=== PATIENT | male | born 1955 | race Caucasian/White ===

== ENCOUNTER → 2016-07-07 | Outpatient (CLI) | payer OTHER ==
[~2016-07-07] MED LIST: ACET-1311 PO; ASPI81TA28 PO; ATOR-22 PO; LEVO50TA6 PO; LITH1TAB PO; LITH300T2 PO; MELATAB2 PO; MELO15TA4 PO; METH4PAK PO; MULT-845 PO; OLAN-111 PO; OLAN10TA11 PO
[2016-07-07 12:58] LABS: POTASSIUM 4.2 mmol/L (3.5-5.1)
[2016-07-07 13:12] LABS: CHOLESTEROL/HDL RATIO 3.8; THYROID STIMULATING HORMONE 2.3 uIu/ml (0.300-4.500)
== END | disposition home or self-care (01) ==
LOC: C.LABBFT 08:14
PROVIDERS: ATTEND Psychiatry & Neurology Psychiatry
DX: F31.9 Bipolar disorder, unspecified (principal); E78.5 Hyperlipidemia, unspecified; E03.9 Hypothyroidism, unspecified

== ENCOUNTER → 2016-08-06 | Day surgery (SDC) | payer OTHER ==
[2016-07-28 09:22] VITALS: BMI 26.0
[~2016-08-06] VITALS: Ht 182.9 cm; Wt 88.6 kg
[~2016-08-06] MED LIST changes: +LIDOCAINE HCL 2% 2 ML VIAL (20MG/ML) ONE; +MIDAZOLAM HCL 1 MG/ML 2ML VIAL ONE; +ONDANSETRON INJ 2 MG/ML 2 ML VIAL ONE; +PROPOFOL IV EMULSION 10 MG/ML 20 ML VIAL IV ONE; +SODIUM CHLORIDE 0.9% 500ML 500 ML IV ONE
[2016-08-06 11:36] VITALS: Ht 182.9 cm; Wt 88.6 kg
--- NOTE | 2016-08-06 12:27 | Endo History and Physical ---
History & Physical Date of Service: Aug 06, 2016. Chief Complaint: SCREENING Referring Physician: DR. RAMIREZ History of Present Illness 61 yo CM who presents for screening colonoscopy. Past Surgical History Hx Cardiac Surgery: No Hx Internal Defibrillator: No Hx Pacemaker: No Hx Abdominal Surgery: No Hx of Implantable Prosthesis: No Hx Post-Op Nausea and Vomiting: No Hx Cancer Surgery: No Hx Thoracic Surgery: No Hx Orthopedic: Yes (LUMP REMOVAL FROM LT HAND, RT CTR, CLOSED REDUCTION OF RT SHOULDER) Hx Urinary Tract Surgery: Yes (LITHOTRIPSY) Family History None Social History Smoking Status: Current Every Day Smoker Hx Substance Use: Yes (QUIT 20 YEARS AGO) Allergies Coded Allergies: Sulfa Antibiotics (Verified Allergy, Severe, ANAPHYLAXIS, 08/06/16) Horse-derived Products (Verified Allergy, Unknown, UNKNOWN - HAPPENED A CHILD, 08/06/16) HAPPENED FROM HORSE TETANUS Nickel (Verified Allergy, Unknown, SKIN RASH, 08/06/16) Penicillins (Verified Allergy, Unknown, UNKNOWN - HAPPENED CHILD, ) Current Medications Reported Home Medications Medications Dose Route/Sig Max Daily Dose Days Date Category Melatonin Maximum Strengt (Melatonin) 5 Mg Tab 1 Tab PO HS 07/28/16 Reported Mobic (Meloxicam) 15 Mg Tab 15 Mg PO DAILY PRN 07/28/16 Reported Levothyroxine Sodium 50 Mcg Tab 1 Tab PO HS 07/28/16 Reported Lipitor (Atorvastatin Calcium) 20 Mg Tab 20 Mg PO HS 07/28/16 Reported Zyprexa (Olanzapine) 10 Mg Tab 10 Mg PO QAM 07/28/16 Reported [place] Carbonate 300 Mg Tab 300 Mg PO BID 07/28/16 Reported Tylenol (Acetaminophen) 325 Mg Tab 650 Mg PO Q6H PRN 08/06/15 Reported Centrum Silver Adult 50+ (Multiple Vitamins W/ Minerals) 1 Tab Tab 1 Tab PO QAM 08/06/15 Reported Vital Signs Weight (Kilograms): 88.64 Height (Feet): 6 Height (Inches): 0 Date Time Temp Pulse Resp B/P Pulse Ox O2 Delivery O2 Flow Rate FiO2 08/06/16 11:44 36.7 74 20 135/82 95 Room Air Physical Exam General Appearance: WD/WN, no apparent distress Respiratory/Chest: Auscultation: breath sounds normal Cardiovascular: Heart Auscultation: RRR Abdomen: Bowel Sounds: normal Inspection & Palpation: soft, non-distended, no tenderness, guarding & rebound Assessment and Plan Assessment: 61 yo CM who presents for screening colonoscopy. Plan: Proceed with colonoscopy.
--- NOTE | 2016-08-06 13:15 | Discharge Instructions ---
Endoscopy Patient Instructions Date / Procedure(s) Performed Aug 06, 2016. Colonoscopy Allergy Information Coded Allergies: Sulfa Antibiotics (Verified Allergy, Severe, ANAPHYLAXIS, 08/06/16) Horse-derived Products (Verified Allergy, Unknown, UNKNOWN - HAPPENED A CHILD, 08/06/16) HAPPENED FROM HORSE TETANUS Nickel (Verified Allergy, Unknown, SKIN RASH, 08/06/16) Penicillins (Verified Allergy, Unknown, UNKNOWN - HAPPENED CHILD, ) Discharge Date / Findings Aug 06, 2016. Colon polyps Diverticulosis Internal hemorrhoids Medication Instructions Stopped Medication(s): INSTRUCTED TO STOP ALL BUT LITHIUM CARBONATE PRIOR TO PROCEDURE BUT DECIDED ON OWN NOT TO TAKE ANY MEDICATIONS TODAY. OK to resume all medications today as prescribed. Reported Home Medications Medications Dose Route/Sig Max Daily Dose Days Date Category Melatonin Maximum Strengt (Melatonin) 5 Mg Tab 1 Tab PO HS 07/28/16 Reported Mobic (Meloxicam) 15 Mg Tab 15 Mg PO DAILY PRN 07/28/16 Reported Levothyroxine Sodium 50 Mcg Tab 1 Tab PO HS 07/28/16 Reported Lipitor (Atorvastatin Calcium) 20 Mg Tab 20 Mg PO HS 07/28/16 Reported Zyprexa (Olanzapine) 10 Mg Tab 10 Mg PO QAM 07/28/16 Reported [place] Carbonate 300 Mg Tab 300 Mg PO BID 07/28/16 Reported Tylenol (Acetaminophen) 325 Mg Tab 650 Mg PO Q6H PRN 08/06/15 Reported Centrum Silver Adult 50+ (Multiple Vitamins W/ Minerals) 1 Tab Tab 1 Tab PO QAM 08/06/15 Reported Provider Instructions Activity Restrictions - No exercising or heavy lifting for 24 hours. - Do not drink alcohol the day of the procedure. - Do not drive a car or operate machinery until the day after the procedure. - Do not make any important decisions or sign important papers in 24 hours after the procedure. Following Day: - Return to full activity which may include returning to work/school. Diet Start your diet with liquids and light foods (jello, soup, juice, toast). Then eat your usual diet if not nauseated. Treatment For Common After Affects For mild abdominal pain, bloating, or excessive gas: - Rest - Eat lightly - Lie on right side Follow-Up Information Follow-up with DR. RAMIREZ as scheduled Anesthesia Information What You Should Know You have had a procedure that required some medicine to reduce anxiety and discomfort. This treatment is called moderate sedation. After receiving the treatment, you may be sleepy, but you will be able to breathe on your own. The effects of the treatment may last for several hours. Follow these instructions along with Activity/Diet recommendations noted above: * Do NOT do anything where dizziness or clumsiness would be dangerous. * Rest quietly at home today, then you can be up and about tomorrow. * Have a responsible person stay with you the rest of today. * You may have had an I.V. today. If so, you may take the dressing off later today. Recommendations Call your doctor if: * Trouble breathing * Continuous vomiting for more than 24 hours * Temperature above 101 degrees * Severe abdominal pain or bloating * Pain not relieved by pain medicine ordered * There is increased drainage or redness from any incision * A large amount of rectal bleeding greater than 2-3 tablespoons. (If you had a polyp/s removed or have hemorrhoids, a small amount of blood - from the rectum is to be expected.) * You have any unanswered questions or concerns. IN THE EVENT OF A SERIOUS EMERGENCY, GO TO THE NEAREST EMERGENCY ROOM Your discharge instructions were prepared by provider Zbigniew Kingston. Patient Instructions Signature Page Amparo Lisa Patient (or Guardian) Signature/Date: I have read and understand the instructions given to me by my caregivers. Caregiver/RN/Doctor Signature/Date: The above-named patient and/or guardian has received patient instructions on this date. + Original Patient Signature Page (only) stays with chart. Please make copy for patient.
--- NOTE | 2016-08-06 13:30 | GI REPORT ---
Procedure Date: 08/06/2016 12:51 PM Procedure: Colonoscopy Indications: Screening for colorectal malignant neoplasm Medicines: Monitored Anesthesia Care Complications: No immediate complications. Estimated Blood Loss: Estimated blood loss: none. Procedure: Pre-Anesthesia Assessment: - Prior to the procedure, a History and Physical was performed, and patient medications and allergies were reviewed. The patient's tolerance of previous anesthesia was also reviewed. The risks and benefits of the procedure and the sedation options and risks were discussed with the patient. All questions were answered, and informed consent was obtained. Prior Anticoagulants: The patient has taken aspirin, last dose was 3 days prior to procedure. ASA Grade Assessment: III - A patient with severe systemic disease. After reviewing the risks and benefits, the patient was deemed in satisfactory condition to undergo the procedure. After I obtained informed consent, the scope was passed under direct vision. Throughout the procedure, the patient's blood pressure, pulse, and oxygen saturations were monitored continuously. The Scope was introduced through the anus and advanced to the terminal ileum. The colonoscopy was performed without difficulty. The patient tolerated the procedure well. The quality of the bowel preparation was good. The terminal ileum, ileocecal valve, appendiceal orifice, and rectum were photographed. Findings: A 6 mm polyp was found in the cecum. The polyp was sessile. The polyp was removed with a hot snare. Resection and retrieval were complete. To prevent bleeding after the polypectomy, one hemostatic clip was successfully placed. There was no bleeding at the end of the procedure. Two sessile polyps were found in the descending colon and in the cecum. The polyps were 5 to 6 mm in size. These polyps were removed with a hot snare. Resection was complete, but the polyp tissue was only partially retrieved. Multiple small-mouthed diverticula were found in the sigmoid colon. Non-bleeding internal hemorrhoids were found during retroflexion. The hemorrhoids were small. Impression: - One 6 mm polyp in the cecum, removed with a hot snare. Resected and retrieved. Clip was placed. - Two 5 to 6 mm polyps in the descending colon and in the cecum, removed with a hot snare. Complete resection. Partial retrieval. - Diverticulosis in the sigmoid colon. - Non-bleeding internal hemorrhoids. Recommendation: - Resume previous diet. - Continue present medications. - Repeat colonoscopy for surveillance based on pathology results. - Return to primary care physician as previously scheduled. Zbigniew Kingston, DO 08/06/2016 1:29:19 PM This report has been signed electronically. Note Initiated On: 08/06/2016 12:51 PM I attest to the content of the Intraoperative Record and orders documented therein, exceptions below
[2016-08-06 13:48] VITALS: BP 130/80; PULSE 63; O2SAT 97
--- NOTE | 2016-08-06 13:56 | Anesthesiology Progress Note ---
Anesthesia Post Op Note Date & Time Aug 06, 2016 at 13:57 Vital Signs Pain Intensity: 0 Vital Signs Past 12 Hours Date Time Temp Pulse Resp B/P Pulse Ox O2 Delivery O2 Flow Rate FiO2 08/06/16 13:48 63 18 130/80 97 Room Air 08/06/16 13:33 71 16 140/83 97 Room Air 08/06/16 13:18 72 16 107/67 100 Room Air 08/06/16 11:44 36.7 74 20 135/82 95 Room Air Notes Mental Status: alert / awake / arousable, participated in evaluation Pt Amnestic to Procedure: Yes Nausea / Vomiting: adequately controlled Pain: adequately controlled Airway Patency, RR, SpO2: stable & adequate BP & HR: stable & adequate Hydration State: stable & adequate Anesthetic Complications: no major complications apparent
== END | disposition home or self-care (01) ==
LOC: C.GI 11:24
PROVIDERS: ATTEND Internal Medicine
DX: Z12.11 Encounter for screening for malignant neoplasm of colon (principal); D12.0 Benign neoplasm of cecum; K57.30 Diverticulosis of large intestine without perforation or abscess without bleeding; K64.8 Other hemorrhoids; Z98.890 Other specified postprocedural states; F17.210 Nicotine dependence, cigarettes, uncomplicated; Z88.0 Allergy status to penicillin; Z88.2 Allergy status to sulfonamides; Z88.8 Allergy status to other drugs, medicaments and biological substances

== ENCOUNTER 2017-02-06 10:20 | Emergency (ER) | payer OTHER ==
[~2017-02-06] VITALS: Ht 182.9 cm; Wt 86.5 kg
[~2017-02-06 10:20] MED LIST changes: -ASPI81TA28 PO; -LIDOCAINE HCL 2% 2 ML VIAL (20MG/ML) ONE; -LITH1TAB PO; -METH4PAK PO; -MIDAZOLAM HCL 1 MG/ML 2ML VIAL ONE; -OLAN-111 PO; -ONDANSETRON INJ 2 MG/ML 2 ML VIAL ONE; -PROPOFOL IV EMULSION 10 MG/ML 20 ML VIAL IV ONE; -SODIUM CHLORIDE 0.9% 500ML 500 ML IV ONE
[2017-02-06 10:38] VITALS: BP 136/77; PULSE 70; TEMP 36.8; O2SAT 96; Ht 182.9 cm; Wt 86.5 kg
[2017-02-06] MEDS ORDERED: LITH1TAB PO (10:51)
[2017-02-06] MEDS ORDERED: ASPI81TA28 PO (10:51)
[2017-02-06] MEDS ORDERED: OLAN-111 PO (10:51)
[2017-02-06] MEDS ORDERED: METH4PAK PO (11:13)
--- NOTE | 2017-02-06 11:13 | EMERGENCY ROOM VISIT NOTE ---
ED Visit Note First contact with patient: 10:45 CHIEF COMPLAINT: Bilateral forearm skin rash 2 days HISTORY OF PRESENT ILLNESS: Patient is a 61-year-old white male who presents emergency department for evaluation of a rash on his bilateral forearms. His symptoms started 2 days ago. He states that 2 days prior to that he had been outside cutting some brush and doing some yard work, but does not believe that he came into contact with any type of poison divya plants. He states that the following day, he was swimming at a pool, floating on a clear plastic raft. He states that the rash started the following day. It was initially small, red, raised, slightly sore areas on the forearm. He was seen that day at an urgent care center and given a triamcinolone 0.1% cream which she has been applying without relief. The rash has now spread, become larger and involves more of the forearm. He states that it is a burning irritation, as opposed to pain and it is slightly itchy. He has had reactions similar to this previously when using plastic inner tubes and rafts. He does not feel that it is related to the yard work because it took 2 days to come out. The forearms are the only area involved. REVIEW OF SYSTEMS: Review of systems as per HPI. All other systems reviewed were negative. At least 6 systems reviewed. PMH: Electronic medical records are reviewed and summarized as above/below. See Problem List. SOCIAL HISTORY: Patient lives at home. Retired. Smokes one pack of cigarettes daily. PHYSICAL EXAM: Vital Signs: See nurses' notes. CONSTITUTIONAL: Patient is a pleasant, well-appearing 61-year-old white male who is awake and alert and in no acute distress. SKIN: The patient has an erythematous, raised, slightly warm mostly vesicular appearing rash on the volar aspect of the forearms, located primarily in the antecubital space, spreading down the forearm and up the biceps slightly. There are a few smaller satellite lesions on the periphery. The palms are spared. There are no excoriations noted, no petechiae or overtly cellulitic changes. No lymphangitic streaking. ED course: The patient was seen and assessed as above. His old records were reviewed. His presentation appears consistent with a contact dermatitis, unclear whether this could be related to a rhus dermatitis from the yard work, or from something from the pool or the inner tube. He will be placed on a prednisone taper. He was encouraged to use Benadryl and ranitidine as needed for itching. I do not suspect a superimposed cellulitis, there is no evidence for SJS, TEN, or drug reaction. Medication reconciliation: I attest that I have personally reviewed the patient' s current medication list. Blood pressure screening : Patient was found to have normal blood pressure on screening and does not require follow-up. Problem List Medical Problems: (1) Alcohol intoxication Status: Resolved (2) Bipolar Disorder, Unspecified Status: Chronic (3) Hyperlipidemia, Unspecified Status: Chronic (4) Hypothyroidism, Unspecified Status: Chronic (5) Patient denies significant medical history Status: Resolved (6) Suicide gesture Status: Resolved Surgical Problems: (1) History of carpal tunnel release Status: Resolved Current/Historical Medications Scheduled Aspirin (Aspirin Ec), 81 MG PO DAILY Atorvastatin (Lipitor), 20 MG PO HS Levothyroxine Sodium (Levothyroxine Sodium), 1 TAB PO HS [place] Carbonate Ext Rel (Lithobid Ext Rel), 225 MG PO BID Melatonin (Melatonin Maximum Strengt), 1 TAB PO HS Methylprednisolone (Medrol Dosepak), 0 PO DAILY Multiple Vitamins W/ Minerals (Centrum Silver Adult 50+), 1 TAB PO QAM Olanzapine (Zyprexa), 5 MG PO QAM Scheduled PRN Acetaminophen (Tylenol), 650 MG PO Q6H PRN for Pain Meloxicam (Mobic), 15 MG PO DAILY PRN for Pain Allergies Coded Allergies: Sulfa Antibiotics (Verified Allergy, Severe, ANAPHYLAXIS, 02/06/17) Horse-derived Products (Verified Allergy, Unknown, UNKNOWN - HAPPENED A CHILD, 02/06/17) HAPPENED FROM HORSE TETANUS Nickel (Verified Allergy, Unknown, SKIN RASH, 02/06/17) Penicillins (Verified Allergy, Unknown, UNKNOWN - HAPPENED CHILD, ) Vital Signs Date Time Temp Pulse Resp B/P (MAP) Pulse Ox O2 Delivery O2 Flow Rate FiO2 02/06/17 10:38 36.8 70 18 136/77 96 Room Air Medications Administered Medications (Trade) Dose Ordered Sig/Deborah Route Start Time Stop Time Status Last Admin Dose Admin Dexamethasone Sodium Phosphate (Decadron Inj) 10 mg NOW ONCE IM 02/06/17 11:15 02/06/17 11:16 DC 02/06/17 11:17 10 MG Departure Information Impression Primary Impression: Contact dermatitis Prescriptions Methylprednisolone (MEDROL DOSEPAK) 4 Mg Jorge 0 PO DAILY, #1 PKT Prov: Charity Be PA 02/06/17 Referrals Adalberto Tierney M.D. (PCP) Patient Instructions My [facility] Additional Instructions Medrol Dosepak: Once daily until the prescription is finished. It is best to take this earlier in the day as some patients note occasional difficulty falling asleep when taken in the late evening. Diphenhydramine(Benadryl) 25mg: use 25 to 50 mg as needed every six hours for swelling, itching, or hives. This medication is sedating and will cause drowsiness. Avoid alcohol, operating machinery or dangerous equipment, working on ladders or roofs, DRIVING, or situations where being under the influence may be dangerous. Zantac 75: Take two pills twice a day along with Benadryl as needed for swelling , itching, or hives. Most people know this for its affect on the stomach, but it also acts similar to, but less potent than Benadryl for allergic reactions. Both the Benadryl and the Zantac are available [id number]. Read all the package inserts or medication information paperwork provided. If you have any questions or concerns call your primary provider, pharmacist or the ER for assistance. Continue current medications. Return to the emergency department for worsening of your rash, swelling of your face, lips, tongue, or throat, difficulty breathing, vomiting, or as needed. Follow-up with your primary care physician in 2-3 days for a recheck of your current condition.
[2017-02-06] MEDS ORDERED: DEXAMETHASONE SOD INJ 10 MG/ML VIAL IM ONE (11:15)
== END 2017-02-06 11:20 | disposition home or self-care (01) ==
LOC: C.EDB 10:21 → C.EDD 11:20
DX: L25.9 Unspecified contact dermatitis, unspecified cause (principal); E03.9 Hypothyroidism, unspecified; F31.9 Bipolar disorder, unspecified; E78.5 Hyperlipidemia, unspecified; F17.210 Nicotine dependence, cigarettes, uncomplicated; Z98.890 Other specified postprocedural states; Z79.82 Long term (current) use of aspirin; Z79.899 Other long term (current) drug therapy

== ENCOUNTER → 2017-02-26 | Outpatient (CLI) | payer OTHER ==
[~2017-02-26] MED LIST changes: +ASPI81TA28 PO; +LITH1TAB PO; -LITH300T2 PO; +OLAN-111 PO; -OLAN10TA11 PO
--- NOTE | 2017-02-26 11:48 | DIAGNOSTIC IMAGING REPORT ---
CT LUNG SCREENING, LOW DOSE WITH COMPUTER-AIDED DETECTION (CAD) CLINICAL HISTORY: Smoker COMPARISON STUDY: 02/11/2016 CT DOSE: 82.82 mGycm TECHNIQUE: Low-dose helical CT was acquired without intravenous contrast from lung apices to bases and reconstructed at 2.5 mm every 2 mm. CAD was utilized for this study. A dose lowering technique was utilized adhering to the principles of ALARA. FINDINGS: Thyroid: Imaged portions of the thyroid gland are normal in appearance. Thoracic aorta: The thoracic aorta is normal in course and caliber, noting standard 3 vessel arch anatomy. Heart: The heart is normal in size and configuration, without pericardial effusion. Lungs and pleural spaces: No pleural effusions are visualized. There is no focal pulmonary consolidation. There is a calcified granuloma within the right lung apex. Left lower lobe perifissural calcifications are unchanged and are felt to be chronic. There are few stable wispy opacities within the superior segment of the right lower lobe, unchanged the prior study. Mediastinum: There are mildly enlarged partially calcified mediastinal lymph nodes unchanged the prior study. Malena: There are few hilar node calcifications. Axilla: There is no pathologic adenopathy Upper abdomen: Partially visualized upper abdominal viscera is within normal limits. Skeletal structures: There are no lytic or blastic osseous lesions. IMPRESSION: 1. Mild partially calcified adenopathy, likely postinflammatory. 2. No suspicious pulmonary nodules. CAD FINDINGS: Overall Lung RADS Category: 1 Lung RADS Management Recommendation: Lung-RADS 1: Continue annual screening in 12 months. Lung RADS Follow Up Date: 2018-02-26 Lung RADS Nodule ID: Electronically signed by: Lito Kebede M.D. 02/26/2017 11:47 AM Dictated Date/Time: 02/26/2017 11:39 AM
== END | disposition home or self-care (01) ==
LOC: C.CTS 10:20
PROVIDERS: ATTEND Internal Medicine
DX: Z87.891 Personal history of nicotine dependence (principal)

== ENCOUNTER → 2017-07-14 | Outpatient (CLI) | payer OTHER | END | disposition home or self-care (01) | LOC: C.LABBFT 13:33 | PROVIDERS: ATTEND Internal Medicine | DX: E03.9 Hypothyroidism, unspecified (principal) ==

== ENCOUNTER → 2018-01-31 | Outpatient (CLI) | payer OTHER ==
[~2018-01-31] MED LIST changes: +MELO-84 PO; -MELO15TA4 PO
[2018-01-31 12:32] LABS: BASO % 0.3 %; BASO ABS # 0.02 K/uL (0-0.2); EOS % 3.5 %; EOS ABS # 0.22 K/uL (0-0.5); HEMATOCRIT 45.4 % (42-52); IG# 0.02 K/uL (0.00-0.02); LYMPH % 29.6 %; LYMPH ABS # 1.88 K/uL (1.2-3.4); MEAN CELL VOLUME 89.5 fL (80-100); MEAN CORPUSCULAR HEMOGLOBIN 29.6 pg (25-34); MEAN PLATELET VOLUME 10.3 fL (7.4-10.4); MONO % 12.1 %; MONO ABS # 0.77 K/uL (0.11-0.59); NEUT % 54.2 %; NEUT ABS # 3.44 K/uL (1.4-6.5); PLATELET COUNT 200 K/uL (130-400); RED CELL DISTRIBUTION WIDTH SD 48.4 fL (36.4-46.3); WHITE BLOOD COUNT 6.35 K/uL (4.8-10.8)
[2018-01-31 13:13] LABS: ALBUMIN 3.6 gm/dl (3.4-5.0); ALKALINE PHOSPHATASE 66 U/L (45-117); ALT/SGPT 34 U/L (12-78); AST/SGOT 20 U/L (15-37); BLOOD UREA NITROGEN 10 mg/dl (7-18); CALCIUM 8.2 mg/dl (8.5-10.1); CARBON DIOXIDE 29 mmol/L (21-32); CHOLESTEROL 179 mg/dl (0-200); CREATININE 1.09 mg/dl (0.60-1.40); GLUCOSE 91 mg/dl (70-99); LDL CHOLESTEROL CALCULATED 92 mg/dl; POTASSIUM 4.5 mmol/L (3.5-5.1); SODIUM 138 mmol/L (136-145); TOTAL PROTEIN 7.4 gm/dl (6.4-8.2)
== END | disposition home or self-care (01) ==
LOC: C.LABBFT 07:33
PROVIDERS: ATTEND Physician Assistant Medical
DX: Z12.5 Encounter for screening for malignant neoplasm of prostate (principal); M19.90 Unspecified osteoarthritis, unspecified site; E78.5 Hyperlipidemia, unspecified

== ENCOUNTER → 2018-02-02 | Outpatient (CLI) | payer OTHER | END | disposition home or self-care (01) | LOC: C.LABBFT 07:28 | PROVIDERS: ATTEND Physician Assistant Medical | DX: R31.29 Other microscopic hematuria (principal) ==

== ENCOUNTER → 2018-02-08 | Outpatient (CLI) | payer OTHER ==
--- NOTE | 2018-02-08 08:33 | DIAGNOSTIC IMAGING REPORT ---
ABD/PELVIS NO IV OR ORAL CONT CLINICAL HISTORY: 62 years-old Male presenting with R31.29 Microscopic hematuria. TECHNIQUE: Multidetector CT of the abdomen and pelvis was performed without the use of intravenous contrast. IV contrast: None. A dose lowering technique was used consistent with the principles of ALARA (as low as reasonably achievable). COMPARISON: None. CT DOSE (mGy.cm): The estimated cumulative dose is 648.36 mGy.cm. FINDINGS: Cook Ship topogram: Unremarkable. Lung bases: Lungs and pleural spaces clear. Normal heart size. Coronary artery, aortic valve, and mitral annular calcification. No pericardial or pleural effusion. Liver: Normal morphology. Normal density. Biliary: No gross biliary ductal dilatation allowing for noncontrast technique. Gallbladder decompressed. Pancreas: Normal noncontrast appearance. Spleen: Normal noncontrast appearance. Adrenal glands: Normal noncontrast appearance. Kidneys and ureters: Normal noncontrast appearance. No nephrolithiasis. No hydronephrosis. Normal ureters. Bladder: Incompletely evaluated secondary to underdistention. Pelvic organs: Prostate enlargement likely secondary to benign prostatic hyperplasia. Bowel: Diverticulosis of the sigmoid and distal descending colon. The appendix is normal. No bowel obstruction. Peritoneal cavity: No free fluid or intraperitoneal gas. Lymph nodes: No gross lymphadenopathy allowing for noncontrast technique. Vasculature: Atherosclerosis of the normal caliber abdominal aorta. Abdominal wall: Normal. Musculoskeletal: Degenerative changes of the spine. IMPRESSION: 1. No nephrolithiasis or hydronephrosis. No acute intra-abdominal pathology allowing for noncontrast technique. 2. Prostatomegaly. 3. Diverticulosis. Electronically signed by: Wild Kevin M.D. 02/08/2018 8:31 AM Dictated Date/Time: 02/08/2018 8:25 AM
== END | disposition home or self-care (01) ==
LOC: C.CTS 08:00
PROVIDERS: ATTEND Physician Assistant Medical
DX: R31.29 Other microscopic hematuria (principal); N40.0 Benign prostatic hyperplasia without lower urinary tract symptoms; K57.90 Diverticulosis of intestine, part unspecified, without perforation or abscess without bleeding

== ENCOUNTER → 2018-02-11 | Outpatient (CLI) | payer OTHER | END | disposition home or self-care (01) | LOC: C.LABSPEC 16:14 | PROVIDERS: ATTEND Urology | DX: R31.29 Other microscopic hematuria (principal) ==

== ENCOUNTER → 2018-02-18 | Outpatient (CLI) | payer OTHER ==
--- NOTE | 2018-02-18 09:20 | DIAGNOSTIC IMAGING REPORT ---
CHEST 2 VIEWS ROUTINE CLINICAL HISTORY: Preoperative evaluation. COMPARISON STUDY: Chest CT February 26, 2017. FINDINGS: Lung volumes are normal. There is no pneumothorax or pleural effusion. No consolidation is identified to suggest pneumonia. Cardiac size is normal. Mediastinal contours are normal. There is no evidence for pulmonary edema. Calcified left mid lung nodules are benign. These were shown on CT of February 26, 2017. IMPRESSION: No acute cardiopulmonary findings. Electronically signed by: Td Aragon M.D. 02/18/2018 9:19 AM Dictated Date/Time: 02/18/2018 9:13 AM
[2018-02-18 09:44] LABS: BASO % 0.4 %; BASO ABS # 0.02 K/uL (0-0.2); EOS % 2.7 %; EOS ABS # 0.15 K/uL (0-0.5); HEMATOCRIT 45.2 % (42-52); HEMOGLOBIN 15.5 g/dL (14.0-18.0); LYMPH % 27.9 %; LYMPH ABS # 1.53 K/uL (1.2-3.4); MEAN CELL VOLUME 87.3 fL (80-100); MEAN CORPUSCULAR HEMOGLOBIN 29.9 pg (25-34); MEAN CORPUSCULAR HGB CONC 34.3 g/dl (32-36); MEAN PLATELET VOLUME 10.2 fL (7.4-10.4); MONO % 12.2 %; MONO ABS # 0.67 K/uL (0.11-0.59); NEUT % 56.8 %; NEUT ABS # 3.12 K/uL (1.4-6.5); PLATELET COUNT 223 K/uL (130-400); RED CELL DISTRIBUTION WIDTH CV 14.4 % (11.5-14.5); RED CELL DISTRIBUTION WIDTH SD 45.8 fL (36.4-46.3); WHITE BLOOD COUNT 5.49 K/uL (4.8-10.8)
[2018-02-18 09:52] LABS: BLOOD UREA NITROGEN 19 mg/dl (7-18); CALCIUM 9.8 mg/dl (8.5-10.1); CARBON DIOXIDE 27 mmol/L (21-32); GLUCOSE 97 mg/dl (70-99); POTASSIUM 4.4 mmol/L (3.5-5.1); SODIUM 137 mmol/L (136-145)
== END | disposition home or self-care (01) ==
LOC: C.CPL 08:01
PROVIDERS: ATTEND Urology
DX: Z01.810 Encounter for preprocedural cardiovascular examination (principal); Z01.811 Encounter for preprocedural respiratory examination; Z01.812 Encounter for preprocedural laboratory examination; R00.1 Bradycardia, unspecified

== ENCOUNTER 2021-01-17 11:48 | Inpatient (IN) ==
--- NOTE | 2021-01-14 08:38 | Anesthesiology Consultation ---
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 Thee Kingston, DO Height/Weight Height: 6 ft Weight: 84.822 kg Allergies Allergy/AdvReac Type Severity Reaction Status Date / Time Sulfa (Sulfonamide Allergy Severe ANAPHYLAXIS Verified 01/10/21 07:31 Antibiotics) alfuzosin Allergy Unknown Unknown Verified 01/10/21 07:31 Horse/Equine Containing Allergy Unknown UNKNOWN - Verified 01/10/21 07:31 Products HAPPENED A CHILD nickel Allergy Unknown SKIN RASH Verified 01/10/21 07:31 Penicillins Allergy Unknown UNKNOWN - Verified 01/10/21 07:31 HAPPENED CHILD Medications Home Medications Medication Instructions Recorded Confirmed Last Taken acetaminophen 650 mg 650 mg PO Q8H PRN 02/16/18 01/10/21 03/05/18 tablet,extended release (Tylenol Arthritis Pain) multivit with min-folic 1 tab PO Q OTHER DAY #0 tab 04/12/19 01/10/21 Unknown acid-lutein 400 mcg-250 mcg chewable tablet (Centrum Silver) atorvastatin 20 mg tablet 20 mg PO HS #30 tab 10/02/20 01/10/21 Unknown melatonin 5 mg capsule 10 mg PO HS cap 11/19/20 01/10/21 Unknown levothyroxine 50 mcg tablet 50 mcg PO QAM #90 tab 11/26/20 01/10/21 Unknown sodium,potassium,mag sulfates 17.5 177 ml PO DAILY 0 Days #354 ml 12/31/20 01/10/21 Unknown gram-3.13 gram-1.6 gram oral soln (Suprep Bowel Prep Kit) Past Medical History Medical History ADD (attention deficit disorder) Alcohol abuse HX OF ETOH ABUSE Benign prostatic hyperplasia with urinary obstruction Bipolar 1 disorder no meds > pt no longer has per pt BPH (benign prostatic hyperplasia) Erectile dysfunction History of cardiac murmur as a child No murmur noted at PAT visit Hyperlipidemia Hypothyroid Incomplete bladder emptying Kidney stones Osteoarthritis PMR (polymyalgia rheumatica) hx of per pt Prediabetes diet control Pulmonary nodule just monitoring Sensorineural hearing loss of both ears Suicidal ideation no longer has per pt Tinnitus Past Family History Family History Father Hypertension Heart disease Mother Hypertension Heart disease Stroke Sister Lung cancer Other No family history of adverse response to anesthesia No family history of bleeding disorder Denies family history of Ovarian cancer Prostate cancer Breast cancer Colorectal cancer Past Surgical History Surgical History History of carpal tunnel release right History of colonoscopy History of lithotripsy History of shoulder surgery right History of tooth extraction Social History Smoking Status: Current every day smoker tobacco type: cigarettes and cigars Smoking cigarettes per day: 4-5 Hx Alcohol Use: Yes Alcohol type: beer and hard liquor alcohol intake frequency: a few times a month Hx Substance Use: Yes substance use type: marijuana Substance Use Type Other:: marijuana use once per day Lab Results Anesthesia Preop Results Results Anesthesia Widget: WBC 4.76 K/uL (4.8-10.8) L 06/04/20 Hgb 13.9 g/dL (14.0-18.0) L 06/04/20 Hct 42.6 % (42-52) 06/04/20 Plt 211 K/uL (130-400) 06/04/20 Na 138 mmol/L (136-145) 11/19/20 K 4.4 mmol/L (3.5-5.1) 11/19/20 Cl 107 mmol/L (98-107) 11/19/20 CO2 29 mmol/L (21-32) 11/19/20 BUN 12 mg/dl (7-18) 11/19/20 Creat 0.92 mg/dl (0.6-1.4) 11/19/20 Glucose Level 96 mg/dl (70-99) 11/19/20 TSH 3.030 uIu/ml (0.300-4.500) 11/19/20 HA1c 5.8 % (4.5-5.6) H 11/19/20 Urine Color YELLOW 01/31/18 Urine Appearance Clear 03/22/19 Urine pH 5.5 (4.5-7.5) 01/31/18 Urine Specific [place] 1.020 (1.000-1.030) 01/31/18 Urine Protein NEG (NEG) 01/31/18 Urine Glucose (UA) NEG (NEG) 01/31/18 Urine Ketones NEG (NEG) 01/31/18 Urine Nitrite NEG (NEG) 01/31/18 Urine Bilirubin NEG (NEG) 01/31/18 Urine Urobilinogen NEG (NEG) 01/31/18 Urine Leukocyte Esterase NEG (NEG) 01/31/18 Urine WBC (Auto) 1-5 /hpf (0-5) 01/31/18 Urine RBC (Auto) 5-10 /hpf (0-4) H 01/31/18 Urine Hyaline Casts (Auto) 0 /lpf (0-5) 01/31/18 Urine Epithelial Cells (Auto) 0-5 /lpf (0-5) 01/31/18 Urine Bacteria (Auto) NEG (NEG) 01/31/18 SARS-CoV-2 RNA (RT-PCR) NEGATIVE (Negative) 01/15/[address] Lung (04/11/20) IMPRESSION: 1. Mild emphysema. 2. No suspicious pulmonary nodules. 3. Prior granulomatous disease.
--- NOTE | 2021-01-17 13:01 | History & Physical Report ---
Date of Service January 17, 2021 Assessment & Plan (1) Rectal bleeding: Plan: Proceed with colonoscopy History of Present Illness Chief Complaint: Bright red rectal bleeding Primary Care Provider: Adalberto Tierney MD 65 yo CM who presents for colonoscopy secondary to rectal bleeding. Allergies Allergy/AdvReac Type Severity Reaction Status Date / Time Sulfa (Sulfonamide Allergy Severe ANAPHYLAXIS Verified 01/17/21 12:27 Antibiotics) alfuzosin Allergy Unknown Unknown Verified 01/17/21 12:27 Horse/Equine Containing Allergy Unknown UNKNOWN - Verified 01/17/21 12:27 Products HAPPENED A CHILD nickel Allergy Unknown SKIN RASH Verified 01/17/21 12:27 Penicillins Allergy Unknown UNKNOWN - Verified 01/17/21 12:27 HAPPENED CHILD Home Medications Medication Instructions Recorded Confirmed Type acetaminophen 650 mg 650 mg PO Q8H PRN 02/16/18 01/10/21 History tablet,extended release (Tylenol Arthritis Pain) multivit with min-folic 1 tab PO Q OTHER DAY #0 tab 04/12/19 01/17/21 History acid-lutein 400 mcg-250 mcg chewable tablet (Centrum Silver) atorvastatin 20 mg tablet 20 mg PO HS #30 tab 10/02/20 01/17/21 Rx melatonin 5 mg capsule 10 mg PO HS cap 11/19/20 01/17/21 History levothyroxine 50 mcg tablet 50 mcg PO QAM #90 tab 11/26/20 01/17/21 Rx sodium,potassium,mag sulfates 17.5 177 ml PO DAILY 0 Days #354 ml 12/31/20 01/17/21 Rx gram-3.13 gram-1.6 gram oral soln (Suprep Bowel Prep Kit) Past Med/Surg History Medical History ADD (attention deficit disorder) Alcohol abuse HX OF ETOH ABUSE Benign prostatic hyperplasia with urinary obstruction Bipolar 1 disorder no meds > pt no longer has per pt BPH (benign prostatic hyperplasia) Erectile dysfunction History of cardiac murmur as a child No murmur noted at PAT visit Hyperlipidemia Hypothyroid Incomplete bladder emptying Kidney stones Osteoarthritis PMR (polymyalgia rheumatica) hx of per pt Prediabetes diet control Pulmonary nodule just monitoring Sensorineural hearing loss of both ears Suicidal ideation no longer has per pt Tinnitus Surgical History History of carpal tunnel release right History of colonoscopy History of lithotripsy History of shoulder surgery right History of tooth extraction Family History Father Hypertension Heart disease Mother Hypertension Heart disease Stroke Sister Lung cancer Other No family history of adverse response to anesthesia No family history of bleeding disorder Denies family history of Ovarian cancer Prostate cancer Breast cancer Colorectal cancer Social History Smoking Status: Current every day smoker Tobacco Type: Cigarettes Age Started Using Tobacco: 13; packs per day: 1; Cigarettes Per Day: 4-5; Second Hand Exposure: Yes; Tobacco Cessation Education Requested by Patient: No Hx Alcohol Use: Yes Alcohol type: beer and hard liquor Hx Substance Use: Yes Substance Use Type Other:: marijuana use once per day Preferred Language: [place] Citizen Communication Ability: Effective Visual Impairment: Partially Limited 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 Beliefs That Will Affect Care: None marital status: Single Current Living Situation: Significant Other current occupational status: unemployed How many Children do You have: 0 Other Information That Helps Us Care for You: No Feels Safe at Home: Yes Safety Concerns: Feels Safe At This Time Childhood Exposure to Second-Hand Smoke: No Diet Comment: regular diet caffeine: Yes (1 cup of coffee) during the past year weight has: increased > 10 lbs Dental Care, Regularly: No Physical Activity Frequency: 3-4 Times per Week 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, 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, 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
[2021-01-17] MEDS ORDERED: LABETALOL HCL IV 5 MG/ML 20ML IV ONE ×4 (14:10→15:29)
[2021-01-17] MEDS ORDERED: PROPOFOL IV EMULSION 10 MG/ML 20 ML VIAL IV ONE ×6 (14:10→18:30)
[2021-01-17] MEDS ORDERED: hydrALAZINE HCL 20 MG/ML VIAL ONE (14:10)
[2021-01-17] MEDS ORDERED: LIDOCAINE 2% 2 ML VIAL/AMP(20MG/ML) INFIL ONE ×2 (14:10→18:30)
[2021-01-17] MEDS ORDERED: fentaNYL citrate 100 MCG/2 ML VIAL ONE ×2 (15:23→16:21)
--- NOTE | 2021-01-17 15:43 | GI REPORT ---
Addendum Number: 1 Addendum Date: 01/17/2021 5:52:07 PM Following the procedure decision was made to perform a CT scan of the Abd/pelvis. I reviewed the CT scan with radiology, and perforation was noted. I immediately discussed these findings with Dr. Martinez of Surgery. Patient was prepped for OR, and will be admitted to ICU following surgery to repair colonic perforation. I did discuss findings with the patient and his girlfriend prior to him being transferred to pre-operative area. Zbigniew Kingston DO 01/17/2021 5:54:45 PM This report has been signed electronically. Patient Name: Amparo Lisa Procedure Date: 01/17/2021 12:46 PM Date of : 1955 Admit Type: Outpatient Age: 65 Gender: Male Attending MD: Zbigniew Kingston DO Procedure: Colonoscopy Providers: Zbigniew Kingston DO Referring MD: Adalberto Tierney Indications: Rectal bleeding Medicines: Monitored Anesthesia Care Complications: Moderate bleeding Estimated Blood Loss: Estimated blood loss: 150 mL requiring treatment with placement of hemostatic clip(s). Procedure: Pre-Anesthesia Assessment: - Prior to the procedure, a History and Physical was performed, and patient medications and allergies were reviewed. The patient's tolerance of previous anesthesia was also reviewed. The risks and benefits of the procedure and the sedation options and risks were discussed with the patient. All questions were answered, and informed consent was obtained. Prior Anticoagulants: The patient has taken no previous anticoagulant or antiplatelet agents. ASA Grade Assessment: III - A patient with severe systemic disease. After reviewing the risks and benefits, the patient was deemed in satisfactory condition to undergo the procedure. After I obtained informed consent, the scope was passed under direct vision. Throughout the procedure, the patient's blood pressure, pulse, and oxygen saturations were monitored continuously. The Colonoscope was introduced through the anus and advanced to the terminal ileum. The colonoscopy was performed without difficulty. The patient tolerated the procedure well. The terminal ileum, ileocecal valve, appendiceal orifice, and rectum were photographed. The terminal ileum, ileocecal valve, appendiceal orifice, and rectum were photographed. Findings: The perianal and digital rectal examinations were normal. Two sessile polyps were found in the cecum. The polyps were 5 to 8 mm in size. These polyps were removed with a hot snare. Resection and retrieval were complete. Two sessile polyps were found in the ascending colon. The polyps were 7 to 14 mm in size. These polyps were removed with a hot snare. Resection and retrieval were complete. To prevent bleeding after the polypectomy, one hemostatic clip was successfully placed (MR conditional). There was no bleeding at the end of the procedure. A 6 mm polyp was found in the transverse colon. The polyp was sessile. The polyp was removed with a hot snare. Resection and retrieval were complete. Two pedunculated and sessile polyps were found in the descending colon. The polyps were 10 to 14 mm in size. These polyps were removed with a hot snare. Resection and retrieval were complete. To prevent bleeding after the polypectomy, two hemostatic clips were successfully placed (MR conditional). Two pedunculated and sessile polyps were found in the sigmoid colon. The polyps were 5 to 10 mm in size. These polyps were removed with a hot snare. Resection and retrieval were complete. A 30 mm polyp was found in the sigmoid colon. The polyp was pedunculated. Area was unsuccessfully injected with 11 mL of a 1:10,000 solution of epinephrine for hemostasis. To stop active bleeding, fourteen hemostatic clips were successfully placed (MR conditional). There was no bleeding at the end of the procedure. Area was tattooed with an injection of 5 mL of Laura ink. Multiple small-mouthed diverticula were found in the sigmoid colon. Non-bleeding internal hemorrhoids were found during retroflexion. The hemorrhoids were small. Impression: - Two 5 to 8 mm polyps in the cecum, removed with a hot snare. Resected and retrieved. - Two 7 to 14 mm polyps in the ascending colon, removed with a hot snare. Resected and retrieved. Clip (MR conditional) was placed. - One 6 mm polyp in the transverse colon, removed with a hot snare. Resected and retrieved. - Two 10 to 14 mm polyps in the descending colon, removed with a hot snare. Resected and retrieved. Clips (MR conditional) were placed. - Two 5 to 10 mm polyps in the sigmoid colon, removed with a hot snare. Resected and retrieved. - One 30 mm polyp in the sigmoid colon. Treatment not successful. Clips (MR conditional) were placed. Tattooed. - Diverticulosis in the sigmoid colon. - Non-bleeding internal hemorrhoids. Recommendation: - Admit the patient to ICU for ongoing care. - NPO. - Repeat colonoscopy for surveillance based on pathology results. Zbigniew Kingston, DO 01/17/2021 3:43:06 PM This report has been signed electronically. Note Initiated On: 01/17/2021 12:46 PM Number of Addenda: 1 I attest to the content of the Intraoperative Record and orders documented therein, exceptions below {[id number]}
[2021-01-17] MEDS ORDERED: cefOXitin 2,000 MG in DEXTROSE 5% 50 ML IV STA (16:16)
[2021-01-17] MEDS ORDERED: ALBUMIN HUMAN 5% 12.5 GM/250 ML VIAL IV ONE (16:18)
--- NOTE | 2021-01-17 16:25 | History & Physical Report ---
Date of Service January 17, 2021 Assessment & Plan (1) Perforated bowel: Plan: This is a 65y M with a PMH of HTN, hypothyroid, pre-DM, polymyalgia rheumatica, ED, alcohol abuse, depression, who presented to the [facility] on 01/17/21 for colonoscopy for history of rectal bleeding. During colonoscopy there was noted to be some bleeding from a polyp in the sigmoid colon that was controlled with clips. The patient was taken to the CT scan post procedure to rule out perforation. Unfortunately CT scan showed evidence of perforation and surgery was consulted for further evaluation. Official radiology read shows "a large overlying of intraperitoneal free air consistent with visceral perforation, along with retroperitoneal gas on the right. Inflammatory change is identified around both the cecum and the sigmoid colon, and either one or both of these sites could represent the site of perforation." STAT labs have been obtained and pending. On examination patient is in no acute distress. He is tender to palpation in the lower abdomen. Vitals are currently stable. Discussio ns have been in place with patient and we will proceed with taking him to the OR for an ex-lap, with possible bowel resection, and repair of perforation. Patient is NPO with IVF and pre-op abx to be given. He is agreeable with the plan. Dr. Martinez has seen/examined patient and obtained surgical consent. Dr. Martinez-patient with significant bleeding during the colonoscopy and then subsequent evaluation and findings of perforation Patient is for emergency laparotomy possible bowel resection possible colostomy- I have discussed this with the patient his brother Lenin and his girlfriend Nieves History of Present Illness Primary Care Provider: Adalberto Tierney MD This is a 65y M with a PMH of HTN, hypothyroid, pre-DM, polymyalgia rheumatica, ED, alcohol abuse, depression, who presented to the [facility] on 01/17/21 for colonoscopy for history of rectal bleeding. During colonoscopy there was noted to be some bleeding from a polyp in the sigmoid colon that was controlled with clips. The patient was taken to the CT scan post procedure to rule out perforation. Unfortunately CT scan showed evidence of perforation and surgery was consulted for further evaluation. Patient currently reports a deep abdominal pain in the lower abdomen. He denies CP/SOB, N/V. No prior history of abdominal surgery. Allergies Allergy/AdvReac Type Severity Reaction Status Date / Time Sulfa (Sulfonamide Allergy Severe ANAPHYLAXIS Verified 01/17/21 12:27 Antibiotics) alfuzosin Allergy Unknown Unknown Verified 01/17/21 12:27 Horse/Equine Containing Allergy Unknown UNKNOWN - Verified 01/17/21 12:27 Products HAPPENED A CHILD nickel Allergy Unknown SKIN RASH Verified 01/17/21 12:27 Penicillins Allergy Unknown UNKNOWN - Verified 01/17/21 12:27 HAPPENED CHILD Home Medications Medication Instructions Recorded Confirmed Type acetaminophen 650 mg 650 mg PO Q8H PRN 02/16/18 01/10/21 History tablet,extended release (Tylenol Arthritis Pain) multivit with min-folic 1 tab PO Q OTHER DAY #0 tab 04/12/19 01/17/21 History acid-lutein 400 mcg-250 mcg chewable tablet (Centrum Silver) atorvastatin 20 mg tablet 20 mg PO HS #30 tab 10/02/20 01/17/21 Rx melatonin 5 mg capsule 10 mg PO HS cap 11/19/20 01/17/21 History levothyroxine 50 mcg tablet 50 mcg PO QAM #90 tab 11/26/20 01/17/21 Rx sodium,potassium,mag sulfates 17.5 177 ml PO DAILY 0 Days #354 ml 12/31/20 01/17/21 Rx gram-3.13 gram-1.6 gram oral soln (Suprep Bowel Prep Kit) Past Med/Surg History Medical History ADD (attention deficit disorder) Alcohol abuse HX OF ETOH ABUSE Benign prostatic hyperplasia with urinary obstruction Bipolar 1 disorder no meds > pt no longer has per pt BPH (benign prostatic hyperplasia) Erectile dysfunction History of cardiac murmur as a child No murmur noted at PAT visit Hyperlipidemia Hypothyroid Incomplete bladder emptying Kidney stones Osteoarthritis PMR (polymyalgia rheumatica) hx of per pt Prediabetes diet control Pulmonary nodule just monitoring Sensorineural hearing loss of both ears Suicidal ideation no longer has per pt Tinnitus Surgical History History of carpal tunnel release right History of colonoscopy History of lithotripsy History of shoulder surgery right History of tooth extraction Family History Father Hypertension Heart disease Mother Hypertension Heart disease Stroke Sister Lung cancer Other No family history of adverse response to anesthesia No family history of bleeding disorder Denies family history of Ovarian cancer Prostate cancer Breast cancer Colorectal cancer Social History Smoking Status: Current every day smoker Tobacco Type: Cigarettes Age Started Using Tobacco: 13; packs per day: 1; Cigarettes Per Day: 4-5; Second Hand Exposure: Yes; Tobacco Cessation Education Requested by Patient: No Hx Alcohol Use: Yes Alcohol type: beer and hard liquor Hx Substance Use: Yes Substance Use Type Other:: marijuana use once per day Preferred Language: Amharic Communication Ability: Effective Visual Impairment: Partially Limited Hearing Ability: Normal 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 Beliefs That Will Affect Care: None marital status: Single Current Living Situation: Significant Other current occupational status: unemployed How many Children do You have: 0 Other Information That Helps Us Care for You: No Feels Safe at Home: Yes Safety Concerns: Feels Safe At This Time Childhood Exposure to Second-Hand Smoke: No Diet Comment: regular diet caffeine: Yes (1 cup of coffee) during the past year weight has: increased > 10 lbs Dental Care, Regularly: No Physical Activity Frequency: 3-4 Times per Week 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, 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, 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 Use: sometimes Sunscreen Use: No Assistive Devices: Denture - Upper, Denture - Lower and Glasses Review of Systems Constitutional: no fever and no chills Respiratory: no dyspnea Cardiovascular: no chest pain Gastrointestinal: + abdominal pain; no nausea and no vomiting Physical Exam Physical Exam: awake/alert Constitutional: no acute distress Respiratory: normal respiratory effort Gastrointestinal (Abdomen): Inspection/Auscultation: abdomen not distended Percussion/Palpation: + abdomen tender (tender to palpation in lower abdomen, worse on L side) and abdomen soft Results & Data Results & Data ([facility]) Vital Signs (Past 12 Hours) Vital Signs Temp Pulse Resp BP Pulse Ox 01/17/21 12:29 36.5 C 64 18 162/[address] SCAN OF THE ABDOMEN AND PELVIS WITHOUT IV CONTRAST CLINICAL HISTORY: Status post colonoscopy with numerous polyp resections. Rectal bleeding. COMPARISON STUDY: Abdominal CT dated 02/08/2018. TECHNIQUE: CT scan of the abdomen and pelvis is performed from the lung bases to the proximal femora. Images are reviewed in the axial, sagittal, and coronal planes. IV contrast was not administered for this examination. A dose lowering technique was utilized adhering to the principles of ALARA. CT DOSE: 373.16 mGy.cm FINDINGS: Lung bases: The heart is normal in size and without pericardial effusion. The lung bases are clear noting dependent atelectasis. There is a small hiatal hernia. Liver: The unenhanced liver is normal in size, contour, and attenuation. There is no intrahepatic biliary ductal dilatation. Gallbladder: Unremarkable. Spleen: Normal in size and attenuation. Pancreas: Unremarkable. Adrenal glands: Unremarkable. Kidneys: The unenhanced kidneys are normal in size and without hydronephrosis. There are no renal calculi identified. There is no evidence of contour deforming renal mass lesion. Abdominal vasculature: The abdominal aorta is normal in course and caliber noting moderate atherosclerotic calcification. Bowel: There is no bowel obstruction. Numerous surgical clips are noted in the sigmoid colon on image #[id number]. Additional clips are seen throughout the descending colon on images #249 and #282 and in the cecum on image #186. Mild inflammatory changes seen around the cecum as well as the sigmoid. The appendix is well-visualized and normal. Peritoneum: There is a large volume of intraperitoneal free air seen below the diaphragm and throughout the abdomen and pelvis. Retroperitoneal gas is seen on the right. There is trace pelvic ascites. Lymphadenopathy: None. Pelvic viscera: The bladder, prostate, and seminal vesicles are normal as imaged. Skeletal structures: There is mild lumbosacral spondylosis. No lytic or blastic lesions are seen. IMPRESSION: 1. There is a large overlying of intraperitoneal free air consistent with visceral perforation. There is also retroperitoneal gas on the right. 2. Numerous surgical clips are seen throughout the colon as detailed above consistent with recent polyp resections. 3. Inflammatory change is identified around both the cecum and the sigmoid colon, and either one or both of these sites could represent the site of perforation. 4. Additional findings as above. Findings discussed with Dr. Kingston at the time of examination. ACT 112: Negative or not required by law. Electronically signed by: Titi Kerr M.D. 01/17/2021 4:23 PM PG Care Time/CCT Total # of Minutes Spent Total Time Spent with Patient: Total time spent is greater than 50% in coordination of care (as documented) at patient's floor/unit and/or counseling patient: Coding Level of Care Code 70455 Initial Inpt Care Lvl 2 Diagnoses Perforated bowel K63.1
--- NOTE | 2021-01-17 16:34 | Anesthesiology Progress Note ---
Date of Service January 17, 2021 Anesthesia Post Procedure Vital Signs Vital Signs: Temp Pulse Resp BP Pulse Ox 01/17/21 12:29 36.5 C 64 18 162/95 H 96 Transfer of Care Handoff Completed per policy Notes Mental Status: alert / awake / arousable Patient Amnestic to Procedure: Yes Nausea / Vomiting: adequately controlled Pain: adequately controlled Airway Patency, RR, SpO2: stable & adequate BP & HR: stable & adequate Hydration State: stable & adequate Anesthetic Complications: no major complications apparent Notes: Patient is hemodynamically stable. CT scan revealed free air in the abdomen. General surgery consulted by emblem drawer in for operative management.
[2021-01-17] MEDS ORDERED: ACETAMINOPHEN 1000 MG/100 ML IV IV ONE (16:36)
[2021-01-17] MEDS ORDERED: BUPIVACAINE 0.5 % 5 MG/1 ML MPF 30ML VIAL ONE (16:40)
[2021-01-17] MEDS ORDERED: ONDANSETRON INJ 2 MG/ML 2 ML VIAL IV PRN (16:40)
[2021-01-17] MEDS ORDERED: PROMETHAZINE HCL 6.25 MG in SODIUM CHLORIDE 0.9% 50 ML IV PRN (16:40)
[2021-01-17] MEDS ORDERED: ePHEDrine sulfate 50 MG/ML AMP IV PRN (16:40)
[2021-01-17] MEDS ORDERED: ATROPINE SULFATE 0.1 MG/ML 10ML SYR IV PRN (16:40)
[2021-01-17] MEDS ORDERED: HYDROmorphone INJ 2 MG/ML SYR/VIAL IV PRN (16:40)
--- NOTE | 2021-01-17 16:40 | Anesthesiology Consultation ---
Date of Service January 17, 2021 Assessment & Plan (1) Encounter for pre-operative examination: Chart Review Chart Review: Acceptable Risk for Surgery and Patient NOT seen in Pre Admission Testing Consults Requested none ASA [id number] Proposed Anesthesia Anesthesia Type: General Risk / Benefits Reviewed With: PT / POA / Parent / Guardian, Accepts Plan and I nformed Consent Obtained History Surgery Operation Date: 01/17/21 09:20 Proposed Procedures p Laparoscopic Bowel Resection - Jeancarlos Martinez MD, FACS Operation Date: 01/17/21 12:35 Proposed Procedures p Colonoscopy Dr. Kingston - Zbigniew Kingston, DO Height/Weight Height: 6 ft Weight: 85.2 kg Allergies Allergy/AdvReac Type Severity Reaction Status Date / Time Sulfa (Sulfonamide Allergy Severe ANAPHYLAXIS Verified 01/17/21 12:27 Antibiotics) alfuzosin Allergy Unknown Unknown Verified 01/17/21 12:27 Horse/Equine Containing Allergy Unknown UNKNOWN - Verified 01/17/21 12:27 Products HAPPENED A CHILD nickel Allergy Unknown SKIN RASH Verified 01/17/21 12:27 Penicillins Allergy Unknown UNKNOWN - Verified 01/17/21 12:27 HAPPENED CHILD Medications Home Medications Medication Instructions Recorded Confirmed Last Taken acetaminophen 650 mg 650 mg PO Q8H PRN 02/16/18 01/10/21 03/05/18 tablet,extended release (Tylenol Arthritis Pain) multivit with min-folic 1 tab PO Q OTHER DAY #0 tab 04/12/19 01/17/21 01/16/21 08:00 acid-lutein 400 mcg-250 mcg chewable tablet (Centrum Silver) atorvastatin 20 mg tablet 20 mg PO HS #30 tab 10/02/20 01/17/21 01/16/21 17:00 melatonin 5 mg capsule 10 mg PO HS cap 11/19/20 01/17/21 01/16/21 17:00 levothyroxine 50 mcg tablet 50 mcg PO QAM #90 tab 11/26/20 01/17/21 01/16/21 08:00 sodium,potassium,mag sulfates 17.5 177 ml PO DAILY 0 Days #354 ml 12/31/20 01/17/21 01/17/21 06:00 gram-3.13 gram-1.6 gram oral soln (Suprep Bowel Prep Kit) NPO Date Last Intake of Fluids: 01/17/21 Time Last Intake of Fluids: 06:00 Date Last Intake of Solids: 01/15/21 Time Last Intake of Solids: 18:00 Past Medical History Medical History ADD (attention deficit disorder) Alcohol abuse HX OF ETOH ABUSE Benign prostatic hyperplasia with urinary obstruction Bipolar 1 disorder no meds > pt no longer has per pt BPH (benign prostatic hyperplasia) Erectile dysfunction History of cardiac murmur as a child No murmur noted at PAT visit Hyperlipidemia Hypothyroid Incomplete bladder emptying Kidney stones Osteoarthritis PMR (polymyalgia rheumatica) hx of per pt Prediabetes diet control Pulmonary nodule just monitoring Sensorineural hearing loss of both ears Suicidal ideation no longer has per pt Tinnitus Exercise / Class Metabolic Activity II 4-5 Yardwork/Stairs/Walk up hill Past Family History Family History Father Hypertension Heart disease Mother Hypertension Heart disease Stroke Sister Lung cancer Other No family history of adverse response to anesthesia No family history of bleeding disorder Denies family history of Ovarian cancer Prostate cancer Breast cancer Colorectal cancer Past Surgical History Surgical History History of carpal tunnel release right History of colonoscopy History of lithotripsy History of shoulder surgery right History of tooth extraction Past Anesthesia History No Hx of Anesthesia Complications and No Family Hx of Anesthesia Complications History of PONV No Hx of PONV and No Hx of Motion Sickness Social History Smoking Status: Current every day smoker tobacco type: cigarettes and cigars Smoking cigarettes per day: 4-5 Hx Alcohol Use: Yes Alcohol type: beer and hard liquor alcohol intake frequency: a few times a month Hx Substance Use: Yes substance use type: marijuana Substance Use Type Other:: marijuana use once per day Physical Exam Vital Signs Last Vital Signs Temp 36.5 C 01/17/21 12:29 Pulse 64 01/17/21 12:29 Resp 18 01/17/21 12:29 BP 162/95 H 01/17/21 12:29 Pulse Ox 96 01/17/21 12:29 ENMT Mouth: no dentition abnormality Thyromental Distance: > or= 3.5 Finger Breadths Mallampati Class: II Neck normal visual inspection Respiratory normal respiratory effort Auscultation: lungs clear to auscultation bilaterally Cardiovascular Rate/Rhythm: regular rate and regular rhythm Psychiatric Orientation: alert Testing Laboratory Results Blood Type O Positive 01/17/21 15:30 Antibody Screen NEGATIVE 01/17/21 15:[address] Lung (04/11/20) IMPRESSION: 1. Mild emphysema. 2. No suspicious pulmonary nodules. 3. Prior granulomatous disease.
[2021-01-17 16:48] LABS: Basophils # (auto) 0.01 K/uL (0-0.2); Basophils % (auto) 0.1 %; Eosinophils # (auto) 0.06 K/uL (0-0.5); Eosinophils % (auto) 0.6 %; Hematocrit (blood only) 40.6 % (42-52); Hemoglobin 13.6 g/dL (14.0-18.0); Immature Granulocytes # (auto) 0.02 K/uL (0.00-0.02); Immature Granulocytes % (auto) 0.2 %; Lymphocytes # (auto) 1.11 K/uL (1.2-3.4); Lymphocytes % (auto) 11.5 %; Mean Corpuscular Hemoglobin 30.6 pg (25-34); Mean Corpuscular Volume 91.2 fL (80-100); Mean Platelet Volume 9.8 fL (7.4-10.4); Monocytes # (auto) 0.69 K/uL (0.11-0.59); Monocytes % (auto) 7.2 %; Neutrophils # (auto) 7.75 K/uL (1.4-6.5); Neutrophils % (auto) 80.4 %; Platelet Count 200 K/uL (130-400); RDW Coefficient of Variation 13.9 % (11.5-14.5); Red Blood Count 4.45 M/uL (4.7-6.1); White Blood Count 9.64 K/uL (4.8-10.8)
[2021-01-17 16:52] LABS: Mean Corpuscular Hgb Conc 33.5 g/dL (32-36)
[2021-01-17 16:57] LABS: Prothrombin Time 10.3 Seconds (9.0-12.0)
[2021-01-17 17:12] LABS: Albumin Level 3.5 gm/dl (3.4-5.0); BUN Creatinine Ratio 5.8 (10-20); Calcium 7.9 mg/dl (8.5-10.1); Creatinine Clr Calc Pharmacy 46.1 ml/min; Est GFR (African American) 46.6 ml/min; Est GFR (Non-African American) 40.2 ml/min
[2021-01-17 17:15] LABS: Bilirubin,Total 0.3 mg/dl (0.2-1); Globulin 3.5 gm/dl (2.5-4.0)
[2021-01-17] MEDS ORDERED: ONDANSETRON INJ 2 MG/ML 2 ML VIAL ONE (18:30)
[2021-01-17] MEDS ORDERED: GLYCOPYRROLATE 0.2 MG/ML VIAL ONE (18:30)
[2021-01-17] MEDS ORDERED: ROCURONIUM BROMIDE 10 MG/ML 5 ML VIAL IV ONE (18:30)
[2021-01-17] MEDS ORDERED: NEOSTIGMINE METHYLSULFATE 1 MG/ML 10ML VIAL ONE (18:30)
[2021-01-17] MEDS ORDERED: PHENYLEPHRINE 100MCG/ML 5ML SYR ONE (18:30)
[2021-01-17] MEDS ORDERED: SUCCINYLCHOLINE CHLORIDE 20 MG/ML 10 ML VIAL IV ONE (18:30)
[2021-01-17] MEDS ORDERED: ACETAMINOPHEN 1,000 MG/100 ML VIAL IV ONE (18:48)
--- NOTE | 2021-01-17 18:48 | Post Operative Brief Note ---
PG Immediate Post Op with CF Date of Surgery January 17, 2021 Pre & Post Diagnosis Operation Date: 01/17/21 09:20 Pre-Op Diagnosis: Bowel Perforation Post-Op Diagnosis: Bowel Perforation, colonic bleeding Operation Date: 01/17/21 12:35 Pre-Op Diagnosis: Tubular Adenoma of Colon, BRBPR, Post-Op Diagnosis: diverticulosis, polyps, hemorrhoids I identified the patient and participated in the time-out.: Yes Procedure Operation Date: 01/17/21 09:20 Actual Procedures p Exploratory Laparotomy, Bowel Resection, Creation Colostomy(Bilateral) - Jeancarlos Martinez MD, FACS Operation Date: 01/17/21 12:35 Actual Procedures p Colonoscopy Polypectomy - Zbigniew Kingston, Surgeon Jeancarlos Martinez MD, FACS Master Lay Out Specialist Faith Powell Estimated Blood Loss 100 Findings Consistent with Post-Op Diagnosis Specimens Specimen Description: PATHOLOGY: A. SIGMOID COLON; STAPLE LINE PROXIMAL Drains Woodrow Drain (15FR ROUND) and Deleon Catheter
[2021-01-17] MEDS ORDERED: HYDROmorphone INJ 2 MG/ML SYR/VIAL ONE (18:49)
--- NOTE | 2021-01-17 19:07 | Anesthesiology Progress Note ---
Date of Service January 17, 2021 Anesthesia Post Procedure Vital Signs Vital Signs: Temp Pulse Pulse Resp BP Pulse Ox 01/17/21 16:20 36.4 C L 58 L 18 153/79 H 98 01/17/21 12:29 36.5 C 64 18 162/95 H 96 Pain Intensity Abdomen: Pain Intensity: 8 Transfer of Care Handoff Completed per policy Notes Mental Status: alert / awake / arousable Patient Amnestic to Procedure: Yes Nausea / Vomiting: adequately controlled Pain: adequately controlled Airway Patency, RR, SpO2: stable & adequate BP & HR: stable & adequate Hydration State: stable & adequate Anesthetic Complications: no major complications apparent
[2021-01-17] MEDS: fentaNYL citrate 100 MCG/2 ML VIAL IV PRN ×2 (19:13→19:19)
[2021-01-17 19:40] LABS: Basophils # (auto) 0.01 K/uL (0-0.2); Basophils % (auto) 0.1 %; Eosinophils # (auto) 0.05 K/uL (0-0.5); Eosinophils % (auto) 0.5 %; Hematocrit (blood only) 39.1 % (42-52); Hemoglobin 12.8 g/dL (14.0-18.0); Immature Granulocytes # (auto) 0.02 K/uL (0.00-0.02); Immature Granulocytes % (auto) 0.2 %; Lymphocytes # (auto) 1.15 K/uL (1.2-3.4); Lymphocytes % (auto) 11.3 %; Mean Corpuscular Hemoglobin 30.3 pg (25-34); Mean Corpuscular Hgb Conc 32.7 g/dL (32-36); Mean Corpuscular Volume 92.4 fL (80-100); Monocytes # (auto) 0.65 K/uL (0.11-0.59); Monocytes % (auto) 6.4 %; Neutrophils # (auto) 8.34 K/uL (1.4-6.5); Neutrophils % (auto) 81.5 %; Platelet Count 203 K/uL (130-400); RDW Standard Deviation 47.8 fL (36.4-46.3); Red Blood Count 4.23 M/uL (4.7-6.1); White Blood Count 10.22 K/uL (4.8-10.8)
[2021-01-17 20:04] LABS: Partial Thromboplastin Ratio 1.3; Partial Thromboplastin Time 33.7 Seconds (21.0-31.0); Prothrombin Time 10.5 Seconds (9.0-12.0)
[2021-01-17 20:08] LABS: Albumin Globulin Ratio 1.1 (0.9-2); Albumin Level 3.2 gm/dl (3.4-5.0); BUN Creatinine Ratio 9.3 (10-20); Bilirubin,Total 0.2 mg/dl (0.2-1); Calcium 7.6 mg/dl (8.5-10.1); Creatinine Clr Calc Pharmacy 77.4 ml/min; Est GFR (African American) 87.3 ml/min; Est GFR (Non-African American) 75.3 ml/min; Potassium 4.2 mmol/L (3.5-5.1); Total Protein 6.2 gm/dl (6.4-8.2)
[2021-01-17] MEDS ORDERED: PROMETHAZINE HCL 25 MG in SODIUM CHLORIDE 0.9% 50 ML IV PRN (20:14)
[2021-01-17] MEDS ORDERED: PROMETHAZINE HCL 12.5 MG in SODIUM CHLORIDE 0.9% 50 ML IV PRN (20:14)
--- NOTE | 2021-01-17 20:21 | Critical Care Consultation ---
Date of Consultation January 17, 2021 Assessment & Plan (1) Admitted to intensive care unit: Reason Critically Ill: 65-year-old male status post exploratory laparotomy for bowel perforation requiring close hemodynamic monitoring in the setting of moderate blood loss status post partial colectomy with ostomy placement. NEURO - * CAM ICU: NEGATIVE * Pain: Dilaudid PRN CARDIAC/VASCULAR - * HTN/HLD * Hold home Rx currently. * Monitor on telemetry. RESPIRATORY - * Cigarette smoking - encourage cessation. GI/NUTRITION - * Colonic Perforation s/p Exploratory Laparotomy w/ partial partial colectomy and ostomy placement. * Appreciate General Surgery recommendation. RENAL/LYTES - * OLIVIA * Continue w/ IVF * Seems to have improved. - * No concerns at this time * Strict I&Os. ENDO - * DMII * BSGs per unit protocol. ISS --> gtt per unit policy. * Hypothyroid: * Continue home Rx HEME - * Stable H&H * Trend H&H overnight. * Transfuse as needed. ID - * GI Coverage s/p bowel perforation. * Cipro/Flagyl currently per gen surgery. LINES/IV ACCESS - * PIVs x2 * ERNESTINA Drain DVT PROPHYLAXIS - * Hold s/p Ex Lap * SCDs Thank you for allowing us to participate in the care of this patient. Please refer to my attending physician's documentation for any further recommendations. (2) Perforated bowel: (3) Rectal bleeding: (4) Hyperlipidemia: (5) Hypertension: (6) Hypothyroidism: History of Present Illness Attending Physician: Jeancarlos Martinez MD, [facility] History of Present Illness Patient is a 65-year-old male with a significant past medical history of depression, bipolar disorder, polyneuropathy, hypertension, hyperlipidemia, cigarette smoking, and BPH. Patient presented today for colonoscopy in the setting of ongoing bright red blood per rectum. Patient was noted to have multiple colonic polyps. Patient with moderate bleeding. Unfortunately, patient with abdominal distention status post colonoscopy. CT demonstrated free air with concerns for bowel perforation. Patient underwent exploratory laparotomy with sigmoid resection and colostomy placement. Patient did well intraoperatively. No postoperative complications noted. Upon evaluation in the ICU, the patient is awake, alert, and oriented. He complains of some abdominal discomfort, but otherwise denies any symptoms of headaches, dizziness, lightheadedness, chest pain, palpitations, shortness of b reath, nausea, or vomiting. Allergies Allergy/AdvReac Type Severity Reaction Status Date / Time Sulfa (Sulfonamide Allergy Severe ANAPHYLAXIS Verified 01/17/21 12:27 Antibiotics) alfuzosin Allergy Unknown Unknown Verified 01/17/21 12:27 Horse/Equine Containing Allergy Unknown UNKNOWN - Verified 01/17/21 12:27 Products HAPPENED A CHILD nickel Allergy Unknown SKIN RASH Verified 01/17/21 12:27 Penicillins Allergy Unknown UNKNOWN - Verified 01/17/21 12:27 HAPPENED CHILD Home Medications Medication Instructions Recorded Confirmed Type acetaminophen 650 mg 650 mg PO Q8H PRN 02/16/18 01/10/21 History tablet,extended release (Tylenol Arthritis Pain) multivit with min-folic 1 tab PO Q OTHER DAY #0 tab 04/12/19 01/17/21 History acid-lutein 400 mcg-250 mcg chewable tablet (Centrum Silver) atorvastatin 20 mg tablet 20 mg PO HS #30 tab 10/02/20 01/17/21 Rx melatonin 5 mg capsule 10 mg PO HS cap 11/19/20 01/17/21 History levothyroxine 50 mcg tablet 50 mcg PO QAM #90 tab 11/26/20 01/17/21 Rx sodium,potassium,mag sulfates 17.5 177 ml PO DAILY 0 Days #354 ml 12/31/20 01/17/21 Rx gram-3.13 gram-1.6 gram oral soln (Suprep Bowel Prep Kit) Patient History Medical History ADD (attention deficit disorder) Alcohol abuse HX OF ETOH ABUSE Benign prostatic hyperplasia with urinary obstruction Bipolar 1 disorder no meds > pt no longer has per pt BPH (benign prostatic hyperplasia) Erectile dysfunction History of cardiac murmur as a child No murmur noted at PAT visit Hyperlipidemia Hypothyroid Incomplete bladder emptying Kidney stones Osteoarthritis PMR (polymyalgia rheumatica) hx of per pt Prediabetes diet control Pulmonary nodule just monitoring Sensorineural hearing loss of both ears Suicidal ideation no longer has per pt Tinnitus Surgical History History of carpal tunnel release right History of colonoscopy History of lithotripsy History of shoulder surgery right History of tooth extraction Family History Father Hypertension Heart disease Mother Hypertension Heart disease Stroke Sister Lung cancer Other No family history of adverse response to anesthesia No family history of bleeding disorder Denies family history of Ovarian cancer Prostate cancer Breast cancer Colorectal cancer Social History Smoking Status: Current every day smoker Tobacco Type: Cigarettes Age Started Using Tobacco: 13; packs per day: 1; Cigarettes Per Day: 4-5; Second Hand Exposure: Yes; Do You Dip or Chew Tobacco: No; Tobacco Cessation Education Requested by Patient: No Hx Alcohol Use: Yes Alcohol type: beer and hard liquor Hx Substance Use: Yes Substance Use Type Other:: marijuana use once per day Preferred Language: Yoruba Communication Ability: Effective Visual Impairment: Partially Limited Hearing Ability: Normal Shipwright Required: No Beliefs That Will Affect Care: None marital status: Single Current Living Situation: Significant Other current occupational status: unemployed How many Children do You have: 0 Other Information That Helps Us Care for You: No Feels Safe at Home: Yes Safety Concerns: Feels Safe At This Time Childhood Exposure to Second-Hand Smoke: No Diet Comment: regular diet caffeine: Yes (1 cup of coffee) during the past year weight has: increased > 10 lbs Dental Care, Regularly: No Physical Activity Frequency: 3-4 Times per Week 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, 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 All else were negative. Physical Exam Physical Exam: VITAL SIGNS - Vital signs and nursing notes were reviewed. GENERAL - 65-year-old male appearing his stated age who is in no acute distress. Communicates well with provider and answers questions appropriately. HEAD - NC/AT. EYES - PERRL with EOMI bilaterally. Sclera anicteric. EARS - No deformities of external structures noted on gross examination bilaterally. NOSE - Midline and without cyanosis. No epistaxis or purulent drainage noted. MOUTH/OROPHARYNX - Without perioral cyanosis. Buccal mucosa pink and moist and without leukoplakia. NECK - Neck with FROM. Supple to palpation. No nuchal rigidity. LUNGS - Chest wall symmetric without accessory muscle use, intercostals retractions, or central cyanosis. Normal vesicular breath sounds CTA B/L. No wheezes, rales, or rhonchi appreciated. CARDIAC - RRR with S1/S2. No murmur, rubs, or gallops appreciated. ABDOMEN - Abdominal contour flat without pulsations or visible masses. Ostomy in place with drainage noted. ERNESTINA site in place. BS hypoactive all four quadrants. Mild tenderness to palpation appreciated diffusely. EXTREMITIES - No clubbing or peripheral cyanosis. No pretibial edema present. +3/5 radial and dorsalis pedis pulses palpated throughout. +5/5 strength noted in UE/LE bilaterally. NEUROLOGIC - Cranial nerves II through XII grossly intact. PSYCH - A&Ox3 and cooperates fully with examiner. Pt is very pleasant and interacts well with examiner. Results & Data Results & Data ([facility]) Vital Signs (Past 12 Hours) Vital Signs Temp Pulse Pulse Resp BP Pulse Ox 01/17/21 20:04 36.5 C 55 L 18 127/75 98 01/17/21 19:40 59 L 14 111/57 L 95 01/17/21 19:30 36.1 C L 58 L 20 112/62 96 01/17/21 19:20 62 12 120/60 95 01/17/21 19:10 67 20 114/61 95 01/17/21 19:00 67 17 130/61 100 01/17/21 18:54 36.0 C L 67 15 125/63 100 01/17/21 16:20 36.4 C L 58 L 18 153/79 H 98 01/17/21 12:29 36.5 C 64 18 162/95 H 96 Coding Level of Care Code 64247 Inpt Consult Level 5 Diagnoses Admitted to intensive care unit Z78.9 Perforated bowel K63.1 Rectal bleeding K62.5 Hyperlipidemia E78.5 Hypertension I10 Hypothyroidism E03.9 Time Spent (min) 35
[2021-01-17] MEDS ORDERED: ICU PROTOCOL FOR HYPERGLYCEMIA PRN (20:46)
[2021-01-17] MEDS: HYDROmorphone INJ 1 MG/ML SYRINGE IV PRN ×2 (21:05→23:42)
[2021-01-17] MEDS: SODIUM CHLORIDE 0.9% 1000ML 1,000 ML IV SCH (21:06)
[2021-01-17] MEDS: CIPROFLOXACIN / D5W 400 MG/200 ML BAG IV SCH (21:48)
[2021-01-17] MEDS: metroNIDAZOLE 500 MG/100 ML BAG IV SCH (23:29)
--- NOTE | 2021-01-17 23:39 | Operative Report (OR) ---
DATE OF PROCEDURE: 01/17/2021 NAME OF OPERATION: Laparotomy, colon resection, end colostomy, and abdominal washout. STAFF SURGEON: Jeancarlos Martinez MD. WOMEN'S STUDIES PROFESSOR: Jessica Powell PA-C. ANESTHESIA: General. DESCRIPTION OF PROCEDURE: The patient was brought in the operating room and placed on the operating table in supine position. He was then placed in modified lithotomy. A Deleon catheter was placed, pn eumatic stockings placed, nasogastric tube placed. After appropriate intubation, his abdomen was pre pped and draped in the usual fashion. The patient had undergone colonoscopy with multiple polyps rem cliff, one very large polyp with some troublesome bleeding and required a significant attempt to stop the bleeding and then the patient subsequently ended up with a bowel perforation. My visitor service assistant helped with prepping, draping, bowel resection and then closure of the wound. A midline incision was made below the umbilicus, carrying dissection down into the abdomen, encounter ing some dark bloody fluid, part of which was probably from the tattooing. There was fluid within th e abdomen. This was suctioned out. On inspection, the patient had a large tattoo. I could not feel the area of the large polyp with the clips, but I felt it was in this area. At this point, we mobil ized the sigmoid colon with some difficulty because of adhesions. His tissues were very friable and weak. In other words, when I would place sutures, they would almost tear through his tissues. He wa s oozy especially in the mesentery and areas of dissection. I transected the sigmoid colon using a ESTEBAN stapler and then mobilized the rectosigmoid down distal to the area of tattooing and then transected that part of the bowel using a TA stapler. The staple tabatha e was proximal. The opened end was distal. I did open the colon and did notice the large polypoid l esion with multiple clips and there was a significant amount of blood in the colon and actually blood was coming out of his rectum on to the floor because I believe his rectum was also full of blood. A t this point, I felt it was not safe to try to reanastomose with his tissues being somewhat abnormal, I brought his end descending colon up through the left abdominal wall for an end colostomy. It was secured using 2-0 chromic suture to the fascia and skin. The abdomen was washed out with saline solution, 15 round Junior-Montelongo drain placed in the pelvis, s ecured to the skin using 3-0 nylon suture. The posterior fascia and peritoneum reapproximated using #1 chromic suture. Then, the fascia reapproximated using a running #1 PDS suture. The subcutaneous space was loosely reapproximated and a Stanton drain placed. The skin was reapproximated using stapl es. The stoma appliance placed. The patient was transferred to recovery room in stable condition. Job ID: [id number]
[2021-01-17 23:48] LABS: Hematocrit (blood only) 37.4 % (42-52); Hemoglobin 12.4 g/dL (14.0-18.0)
[2021-01-18] MEDS: HYDROmorphone INJ 1 MG/ML SYRINGE IV PRN ×8 (03:34→20:37)
[2021-01-18 05:24] LABS: Basophils # (auto) 0.01 K/uL (0-0.2); Basophils % (auto) 0.1 %; Eosinophils # (auto) 0.06 K/uL (0-0.5); Eosinophils % (auto) 0.5 %; Hematocrit (blood only) 37.5 % (42-52); Hemoglobin 12.4 g/dL (14.0-18.0); Immature Granulocytes # (auto) 0.02 K/uL (0.00-0.02); Immature Granulocytes % (auto) 0.2 %; Lymphocytes # (auto) 1.52 K/uL (1.2-3.4); Lymphocytes % (auto) 13.9 %; Mean Corpuscular Hemoglobin 30.7 pg (25-34); Mean Corpuscular Hgb Conc 33.1 g/dL (32-36); Mean Corpuscular Volume 92.8 fL (80-100); Mean Platelet Volume 9.1 fL (7.4-10.4); Monocytes # (auto) 0.78 K/uL (0.11-0.59); Monocytes % (auto) 7.1 %; Neutrophils # (auto) 8.52 K/uL (1.4-6.5); Neutrophils % (auto) 78.2 %; Platelet Count 178 K/uL (130-400); RDW Coefficient of Variation 14.1 % (11.5-14.5); Red Blood Count 4.04 M/uL (4.7-6.1); White Blood Count 10.91 K/uL (4.8-10.8)
[2021-01-18 05:42] LABS: BUN Creatinine Ratio 9.6 (10-20); Calcium 7.4 mg/dl (8.5-10.1); Creatinine Clr Calc Pharmacy 91.7 ml/min; Est GFR (African American) 104.2 ml/min; Est GFR (Non-African American) 89.9 ml/min; Magnesium 2.2 mg/dl (1.8-2.4); Potassium 4.1 mmol/L (3.5-5.1)
[2021-01-18 05:43] LABS: Phosphorus 2.7 mg/dl (2.5-4.9)
--- NOTE | 2021-01-18 05:57 | Surgery Progress Note ---
Date of Service January 18, 2021 Assessment & Plan (1) S/P colon resection: Plan: Patient status post emergency exploratory laparotomy with colon resection and end colostomy with abdominal washout He seems to be doing well in the ICU with some oozing from his wound drain and colostomy We will transfer him to the regular nursing floor Remove his NG tube and begin clear liquids Leave Deleon for today Ask the medical team to help us with his care Hold on subcu heparin today with the patient's oozing Check a.m. labs Admission and Anticipated Discharge Date Admission Date: January 17, 2021 Results & Data ([facility]) Vital Signs (Past 12 Hours) Vital Signs Temp Pulse Pulse Resp BP BP Pulse Ox 01/18/21 04:20 63 17 113/58 L 98 01/18/21 03:45 36.6 C 01/18/21 03:20 58 L 14 120/64 97 01/18/21 02:50 55 L 19 108/61 99 01/18/21 02:20 59 L 104/60 98 01/18/21 01:50 55 L 105/58 L 98 01/18/21 01:20 63 16 103/54 L 94 01/18/21 00:50 56 L 13 101/56 L 96 01/18/21 00:20 58 L 104/61 94 01/18/21 00:05 62 01/18/21 00:00 36.5 C 01/17/21 23:50 59 L 108/57 L 96 01/17/21 23:35 65 18 107/50 L 97 01/17/21 23:20 56 L 120/66 98 01/17/21 23:05 64 16 117/64 96 01/17/21 23:00 36.5 C 01/17/21 22:50 60 15 121/71 97 01/17/21 22:35 58 L 14 119/64 97 01/17/21 22:20 62 13 120/59 L 96 01/17/21 22:05 60 13 135/65 97 01/17/21 21:50 36.5 C 69 14 119/73 98 01/17/21 21:35 64 15 131/74 98 01/17/21 21:20 61 15 109/64 97 01/17/21 21:05 60 13 138/71 98 01/17/21 20:50 36.5 C 58 L 14 119/69 98 01/17/21 20:35 59 L 12 126/66 97 01/17/21 20:20 56 L 17 117/63 97 01/17/21 20:05 57 L 14 135/74 96 01/17/21 20:04 36.5 C 55 L 18 127/75 98 01/17/21 19:50 60 01/17/21 19:40 59 L 14 111/57 L 95 01/17/21 19:30 36.1 C L 58 L 20 112/62 96 01/17/21 19:20 62 12 120/60 95 01/17/21 19:10 67 20 114/61 95 01/17/21 19:00 67 17 130/61 100 01/17/21 18:54 36.0 C L 67 15 125/63 100 PG Care Time/CCT Total # of Minutes Spent Total Time Spent with Patient: Total time spent is greater than 50% in coordination of care (as documented) at patient's floor/unit and/or counseling patient: Coding Level of Care Code None Diagnoses S/P colon resection Z90.49
[2021-01-18] MEDS: metroNIDAZOLE 500 MG/100 ML BAG IV SCH ×3 (06:12→22:37)
--- NOTE | 2021-01-18 07:45 | Hospitalist Consultation ---
Date of Consultation January 18, 2021 Assessment & Plan (1) S/P colon resection: Appreciate surgical management of this. Advance diet per surgical recommendations. NG tube is out (2) Perforated bowel: Agree with continuing antibiotics per surgery recommendations with cipro metronidazole (3) Rectal bleeding: Hgb stable. Monitor with CBC in AM (4) Hypothyroidism: Continue levothyroxine (5) Hyperlipidemia: Continue atorvastatin (6) Polymyalgia rheumatica: Historical diagnosis, one episode. Patient reports no current issues with this. Not on any steroids. (7) Alcohol abuse: Historical diagnosis. Now only drinks 1-2 times a week. No concern for alcohol withdrawal at this time. VTE prophyalxis per surgery recommendations. Thank you for this consult, we will continue to follow History of Present Illness Reason for Consultation: Medical Management Attending Physician: Jeancarlos Martinez MD, [facility] History of Present Illness Amparo Lisa is a 65 year old male who presents as a direct admission yesterday after concerns for perforation s/p colonoscopy. CT confirmed perforation and he underwent surgery performed by Dr Martinez 01/17 with formation of end colostomy. He was noted to have a significant amount of blood in his colon and coming out of his rectum therefore taken to the ICU post operatively. Hemoglobin stable this morning therefore transferred to medical floor. Reports abdominal pain around surgical site at present time. No nausea or vomiting. NG tube is out. Passing flatus but no bowel movement yet. Allergies Allergy/AdvReac Type Severity Reaction Status Date / Time Sulfa (Sulfonamide Allergy Severe ANAPHYLAXIS Verified 01/17/21 12:27 Antibiotics) alfuzosin Allergy Unknown Unknown Verified 01/17/21 12:27 Horse/Equine Containing Allergy Unknown UNKNOWN - Verified 01/17/21 12:27 Products HAPPENED A CHILD nickel Allergy Unknown SKIN RASH Verified 01/17/21 12:27 Penicillins Allergy Unknown UNKNOWN - Verified 01/17/21 12:27 HAPPENED CHILD Home Medications Medication Instructions Recorded Confirmed Type acetaminophen 650 mg 650 mg PO Q8H PRN 02/16/18 01/10/21 History tablet,extended release (Tylenol Arthritis Pain) multivit with min-folic 1 tab PO Q OTHER DAY #0 tab 04/12/19 01/17/21 History acid-lutein 400 mcg-250 mcg chewable tablet (Centrum Silver) atorvastatin 20 mg tablet 20 mg PO HS #30 tab 10/02/20 01/17/21 Rx melatonin 5 mg capsule 10 mg PO HS cap 11/19/20 01/17/21 History levothyroxine 50 mcg tablet 50 mcg PO QAM #90 tab 11/26/20 01/17/21 Rx sodium,potassium,mag sulfates 17.5 177 ml PO DAILY 0 Days #354 ml 12/31/20 01/17/21 Rx gram-3.13 gram-1.6 gram oral soln (Suprep Bowel Prep Kit) Patient History Medical History ADD (attention deficit disorder) Alcohol abuse HX OF ETOH ABUSE Benign prostatic hyperplasia with urinary obstruction Bipolar 1 disorder no meds > pt no longer has per pt BPH (benign prostatic hyperplasia) Erectile dysfunction History of cardiac murmur as a child No murmur noted at PAT visit Hyperlipidemia Hypothyroid Incomplete bladder emptying Kidney stones Osteoarthritis PMR (polymyalgia rheumatica) hx of per pt Prediabetes diet control Pulmonary nodule just monitoring Sensorineural hearing loss of both ears Suicidal ideation no longer has per pt Tinnitus Surgical History History of carpal tunnel release right History of colonoscopy History of lithotripsy History of shoulder surgery right History of tooth extraction Family History Father Hypertension Heart disease Mother Hypertension Heart disease Stroke Sister Lung cancer Other No family history of adverse response to anesthesia No family history of bleeding disorder Denies family history of Ovarian cancer Prostate cancer Breast cancer Colorectal cancer Social History Smoking Status: Current every day smoker Tobacco Type: Cigarettes Age Started Using Tobacco: 13; packs per day: 1; Cigarettes Per Day: 4-5; Second Hand Exposure: Yes; Do You Dip or Chew Tobacco: No; Tobacco Cessation Education Requested by Patient: No Hx Alcohol Use: Yes Alcohol type: beer and hard liquor Hx Substance Use: Yes Substance Use Type Other:: marijuana use once per day Preferred Language: Liberian Communication Ability: Effective Visual Impairment: Partially Limited Hearing Ability: Normal Standpipe Tender Required: No Beliefs That Will Affect Care: None marital status: Single Current Living Situation: Significant Other current occupational status: unemployed How many Children do You have: 0 Other Information That Helps Us Care for You: No Feels Safe at Home: Yes Safety Concerns: Feels Safe At This Time Childhood Exposure to Second-Hand Smoke: No Diet Comment: regular diet caffeine: Yes (1 cup of coffee) during the past year weight has: increased > 10 lbs Dental Care, Regularly: No Physical Activity Frequency: 3-4 Times per Week 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, 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 Quinton blood in colostomy bag, Drain in place with bloody drainage. Dressing is clean and dry. Musculoskeletal: no cyanosis or clubbing, extremities motor strength 5/5 Skin: no rashes, warm and dry (surgical scar as above) Neurologic: moves all extremities and awake; not confused Psychiatric: A+Ox3, euthymic affect Results & Data Results & Data ([facility]) Vital Signs (Past 12 Hours) Vital Signs Temp Pulse Pulse Resp BP BP Pulse Ox 01/18/21 05:50 73 12 114/60 94 01/18/21 05:22 78 22 01/18/21 05:00 37.1 C 01/18/21 04:50 72 23 105/60 97 01/18/21 04:20 63 17 113/58 L 98 01/18/21 03:45 36.6 C 01/18/21 03:20 58 L 14 120/64 97 01/18/21 02:50 55 L 19 108/61 99 01/18/21 02:20 59 L 104/60 98 01/18/21 01:50 55 L 105/58 L 98 01/18/21 01:20 63 16 103/54 L 94 01/18/21 00:50 56 L 13 101/56 L 96 01/18/21 00:20 58 L 104/61 94 01/18/21 00:05 62 07/24/21 00:00 36.5 C 01/17/21 23:50 59 L 108/57 L 96 01/17/21 23:35 65 18 107/50 L 97 01/17/21 23:20 56 L 120/66 98 01/17/21 23:05 64 16 117/64 96 01/17/21 23:00 36.5 C 01/17/21 22:50 60 15 121/71 97 01/17/21 22:35 58 L 14 119/64 97 01/17/21 22:20 62 13 120/59 L 96 01/17/21 22:05 60 13 135/65 97 01/17/21 21:50 36.5 C 69 14 119/73 98 01/17/21 21:35 64 15 131/74 98 01/17/21 21:20 61 15 109/64 97 01/17/21 21:05 60 13 138/71 98 01/17/21 20:50 36.5 C 58 L 14 119/69 98 01/17/21 20:35 59 L 12 126/66 97 01/17/21 20:20 56 L 17 117/63 97 01/17/21 20:05 57 L 14 135/74 96 01/17/21 20:04 36.5 C 55 L 18 127/75 98 01/17/21 19:50 60 PG Care Time/CCT Total # of Minutes Spent Total Time Spent with Patient: Total time spent is greater than 50% in coordination of care (as documented) at patient's floor/unit and/or counseling patient: Coding Level of Care Code 26218 Inpt Consult Level 5 Diagnoses S/P colon resection Z90.49 Perforated bowel K63.1 Rectal bleeding K62.5 Hypothyroidism E03.9 Hyperlipidemia E78.5 Polymyalgia rheumatica M35.3 Alcohol abuse F10.10
[2021-01-18] MEDS: SODIUM CHLORIDE 0.9% 1000ML 1,000 ML IV SCH ×2 (08:19→20:41)
[2021-01-18] MEDS ORDERED: HEPARIN SOD 5,000 UNIT/0.5 ML VIAL SQ SCH ×2 (09:00→21:00)
[2021-01-18] MEDS: CIPROFLOXACIN / D5W 400 MG/200 ML BAG IV SCH ×2 (09:07→20:37)
[2021-01-18] MEDS: ONDANSETRON INJ 2 MG/ML 2 ML VIAL IV PRN (16:04)
[2021-01-18] MEDS: ATORVASTATIN 20 MG TAB PO SCH (20:37)
[2021-01-18] MEDS: MELATONIN 3 MG TAB PO SCH (21:25)
[2021-01-19] MEDS: HYDROmorphone INJ 1 MG/ML SYRINGE IV PRN ×7 (02:23→21:44)
--- NOTE | 2021-01-19 06:10 | Surgery Progress Note ---
Date of Service January 19, 2021 Assessment & Plan (1) S/P colon resection: Plan: Postoperative day #2 sigmoid colon resection with colostomy formation Surgical pathology is pending Continue antibiotics in form of Cipro and Flagyl Continue analgesics Continue antiemetics We will maintain on clear liquids until further improvement of bowel function is noted Continue ambulation in hallway as able Encourage use of incentive spirometry Subcu heparin was previously in place for DVT prevention but is being held due to oozing from colostomy Dr. Martinez-patient's vital signs are stable, he is awake and alert, tolerating clear liquids Complains of significant pain when moving-not unexpected in this situation His abdomen is relatively flat He does not want the Deleon removed yet-we will leave 1 more day Advance to full liquids Decrease IV fluids Continue antibiotics Try to mobilize Admission and Anticipated Discharge Date Admission Date: January 17, 2021 Subjective Patient is currently resting comfortably in bed. He denies chest pain or shortness of breath. He denies fevers, shakes, chills. He notes abdominal pain at his surgical incision. He denies any nausea or vomiting. He notes he has taken some sips of clear liquids but does not have much in the way of oral intake. He says he has ambulated in the hallway over the past 24 hours. Physical Exam Gastrointestinal (Abdomen): Abdomen is soft and nondistended. Patient has pain with palpation near her surgical incision. Patient's colostomy was examined and there is some dark red oozing noted in the collection bag. The colostomy does appear pink and viable. Results & Data ([facility]) Vital Signs (Past 12 Hours) Vital Signs Temp Pulse Resp BP Pulse Ox 01/19/21 04:04 37.3 C 76 16 127/68 92 01/19/21 02:32 37.3 C 01/18/21 22:32 37.3 C 82 16 127/69 92 01/18/21 19:43 37.8 C H 82 18 146/75 H 92 PG Care Time/CCT Total # of Minutes Spent Total Time Spent with Patient: Total time spent is greater than 50% in coordination of care (as documented) at patient's floor/unit and/or counseling patient: Coding Level of Care Code None Diagnoses S/P colon resection Z90.49
[2021-01-19] MEDS: LEVOTHYROXINE SODIUM 50 MCG TABLET PO SCH (06:29)
[2021-01-19] MEDS: metroNIDAZOLE 500 MG/100 ML BAG IV SCH ×3 (06:30→22:58)
[2021-01-19 07:49] LABS: Basophils # (auto) 0.01 K/uL (0-0.2); Basophils % (auto) 0.1 %; Eosinophils # (auto) 0.04 K/uL (0-0.5); Eosinophils % (auto) 0.4 %; Hematocrit (blood only) 35.9 % (42-52); Immature Granulocytes # (auto) 0.02 K/uL (0.00-0.02); Immature Granulocytes % (auto) 0.2 %; Lymphocytes # (auto) 1.49 K/uL (1.2-3.4); Lymphocytes % (auto) 13.8 %; Mean Corpuscular Hemoglobin 30.8 pg (25-34); Mean Corpuscular Hgb Conc 33.4 g/dL (32-36); Mean Corpuscular Volume 92.3 fL (80-100); Mean Platelet Volume 9.6 fL (7.4-10.4); Monocytes # (auto) 0.95 K/uL (0.11-0.59); Monocytes % (auto) 8.8 %; Neutrophils # (auto) 8.29 K/uL (1.4-6.5); Neutrophils % (auto) 76.7 %; Platelet Count 174 K/uL (130-400); RDW Coefficient of Variation 13.9 % (11.5-14.5); RDW Standard Deviation 47.1 fL (36.4-46.3); Red Blood Count 3.89 M/uL (4.7-6.1)
[2021-01-19 08:12] LABS: Calcium 8.2 mg/dl (8.5-10.1); Creatinine Clr Calc Pharmacy 88.6 ml/min; Est GFR (African American) 102.8 ml/min; Est GFR (Non-African American) 88.7 ml/min; Potassium 3.5 mmol/L (3.5-5.1)
[2021-01-19] MEDS: CIPROFLOXACIN / D5W 400 MG/200 ML BAG IV SCH ×2 (09:27→20:37)
[2021-01-19] MEDS: HEPARIN SOD 5,000 UNIT/0.5 ML VIAL SQ SCH ×2 (09:28→20:36)
[2021-01-19] MEDS: SODIUM CHLORIDE 0.9% 1000ML 1,000 ML IV SCH (11:45)
[2021-01-19] MEDS ORDERED: IBUPROFEN 600 MG TAB PO PRN (12:08)
[2021-01-19] MEDS: ACETAMINOPHEN 325 MG TAB PO PRN (12:43)
--- NOTE | 2021-01-19 13:40 | XRay Report ---
XR chest 1V portable CLINICAL HISTORY: hypoxia COMPARISON STUDY: No previous studies for comparison. FINDINGS: No pneumothorax. No pleural effusion. Mild reticular prominence of pulmonary interstitium is seen at bilateral bases. Elevated right hemidi aphragm. Cardiomediastinal silhouette is within normal limits in size. No significant pulmonary vascular congestion.. Osseous structures: unremarkable IMPRESSION: 1. Reticular prominence of bilateral lower lungs and mildly elevated right hemidiaphragm might repre sent scattered atelectasis or scarring. No large infiltrates or consolidative lesions. ACT 112: Negative or not required by law. The above report was generated using voice recognition software. It may contain grammatical, syntax o r spelling errors. Electronically signed by: Albina Smith DO 01/19/2021 1:39 PM
[2021-01-19] MEDS: ATORVASTATIN 20 MG TAB PO SCH (20:36)
[2021-01-19] MEDS: MELATONIN 3 MG TAB PO SCH (20:37)
[2021-01-19 22:37] LABS: Appearance Urine Clear (Clear); Bacteria Urine Automated Negative (Negative); Bilirubin Urine Negative (Negative); Blood Urine Trace (Negative); Cast Urine Automated 0 /lpf (0-5); Color Urine Yellow; Glucose Urine UA Negative (Negative); Ketones Urine 2+ (Negative); Leukocyte Esterase Urine Negative (Negative); Nitrite Urine Negative (Negative); Protein Urine Negative (Negative); Specific Gravity Urine 1.009 (1.000-1.030); Urobilinogen Urine Negative (Negative)
--- NOTE | 2021-01-19 23:29 | Hospitalist Progress Note ---
Date of Service January 19, 2021 Assessment & Plan (1) S/P colon resection: Plan: Appreciate surgical management of this. Advance diet per surgical recommendations - clear liquids today. Subsequently NSS reduced to 50 ml/hr by surgery. Will recheck BMP in AM for fluid management. Surgical pathology pending. (2) Perforated bowel: Plan: Agree with continuing antibiotics per surgery recommendations with IV ciprofloxacin + metronidazole, if he continues to have fevers or WBC increasing may need to broaden coverage to Zosyn. (3) Fever: Plan: Patient is nonseptic appearing. I suspect this is postsurgical from his perforation. Covered with antibiotics as above. UA, blood cultures, CXR. (4) Rectal bleeding: Plan: Hgb stable. Monitor with CBC in AM (5) Hypothyroidism: Plan: Continue levothyroxine (6) Hyperlipidemia: Plan: Continue atorvastatin (7) Polymyalgia rheumatica: Plan: Historical diagnosis, one episode. Patient reports no current issues with this. Not on any steroids. (8) Alcohol abuse: Plan: Historical diagnosis. Now only drinks 1-2 times a week. No concern for alcohol withdrawal at this time. Plan: VTE prophylaxis -Heparin 5000 units subcu every 12 hourly Thank you for this consult, we will continue to follow Admission and Anticipated Discharge Date Admission Date: January 17, 2021 Subjective Temperature of 38.2 C earlier today. Patient reports no fevers or chills associated with this. Colostomy continues to have bloody liquid. Postsurgical abdominal pain improving. No nausea or vomiting. Review of Systems Review of Systems: All systems reviewed & are unremarkable except as noted in HPI & below Physical Exam Constitutional: WD/WN, vitals as above Eyes: + anicteric sclerae; normal pupil size Neck: trachea midline, no thyromegaly Respiratory: normal respiratory effort, lungs clear to auscultation Cardiovascular: RRR, no murmur, no edema Gastrointestinal (Abdomen): Inspection/Auscultation: + hypoactive bowel sounds Percussion/Palpation: + abdomen tender (generalzied, improving) and abdomen soft; no guarding and abdomen not rigid staple noted without surrounding erythema. Quinton blood in colostomy bag, Drain in place with bloody drainage. Dressing is clean and dry. Musculoskeletal: no cyanosis or clubbing, extremities motor strength 5/5 Skin: no rashes, warm and dry (surgical scar dressed C/D/I, dressing not removed) Neurologic: moves all extremities and awake; not confused Psychiatric: A+Ox3, euthymic affect Results & Data Results & Data ([facility]) Vital Signs (Past 12 Hours) Vital Signs Temp Pulse Pulse Resp BP Pulse Ox 01/19/21 22:43 36.9 C 70 16 152/79 H 97 01/19/21 16:01 36.9 C 72 16 127/65 93 01/19/21 11:45 38.2 C H 73 18 128/62 96 PG Care Time/CCT Total # of Minutes Spent Total Time Spent with Patient: Total time spent is greater than 50% in coordination of care (as documented) at patient's floor/unit and/or counseling patient: Coding Level of Care Code 97196 Subseq Hosp Care Lvl 2 Diagnoses S/P colon resection Z90.49 Perforated bowel K63.1 Rectal bleeding K62.5 Hypothyroidism E03.9 Hyperlipidemia E78.5 Polymyalgia rheumatica M35.3 Alcohol abuse F10.10 Fever R50.9
[2021-01-20] MEDS: HYDROmorphone INJ 1 MG/ML SYRINGE IV PRN ×4 (04:00→18:41)
[2021-01-20] MEDS: SODIUM CHLORIDE 0.9% 1000ML 1,000 ML IV SCH (04:39)
[2021-01-20] MEDS: LEVOTHYROXINE SODIUM 50 MCG TABLET PO SCH (05:54)
[2021-01-20] MEDS: metroNIDAZOLE 500 MG/100 ML BAG IV SCH ×3 (05:54→22:28)
[2021-01-20 06:50] LABS: Hematocrit (blood only) 32.2 % (42-52); Hemoglobin 10.7 g/dL (14.0-18.0); Mean Corpuscular Hemoglobin 30.8 pg (25-34); Mean Corpuscular Hgb Conc 33.2 g/dL (32-36); Mean Corpuscular Volume 92.8 fL (80-100); Mean Platelet Volume 10.1 fL (7.4-10.4); Platelet Count 187 K/uL (130-400); RDW Coefficient of Variation 13.7 % (11.5-14.5); RDW Standard Deviation 46.3 fL (36.4-46.3); Red Blood Count 3.47 M/uL (4.7-6.1)
[2021-01-20 07:27] LABS: BUN Creatinine Ratio 5.6 (10-20); Calcium 8.1 mg/dl (8.5-10.1); Creatinine Clr Calc Pharmacy 102.3 ml/min; Est GFR (Non-African American) 94.1 ml/min; Potassium 3.6 mmol/L (3.5-5.1)
[2021-01-20] MEDS: ACETAMINOPHEN 325 MG TAB PO PRN (07:50)
[2021-01-20] MEDS: CIPROFLOXACIN / D5W 400 MG/200 ML BAG IV SCH ×2 (08:45→20:15)
[2021-01-20] MEDS: HEPARIN SOD 5,000 UNIT/0.5 ML VIAL SQ SCH ×2 (08:50→20:14)
--- NOTE | 2021-01-20 08:55 | Hospitalist Progress Note ---
Date of Service January 20, 2021 Assessment & Plan (1) S/P colon resection: Plan: s/p bowel resection following colonoscopy 01/[address] Kingston/Dr. Martinez Post-op management per surgery DVT chemical proph held due to bleeding from ostomy Remains on Cipro/Flagyl Afebrile Cultures pending Pathology pending Regular diet today, added boost supplementation No further IVF Continue to monitor (2) Perforated bowel: Plan: Agree with continuing antibiotics per surgery recommendations with IV ciprofloxacin + metronidazole, if he continues to have fevers or WBC increasing may need to broaden coverage to Zosyn. No further fevers since 38.2C yesterday morning so will continue on current Cipro/Flagyl unless spikes temperature WBC WNL, CXR with atelectasis (utilizing incentive spirometer now) (3) Fever: Plan: 38.2C on 01/19 AM Patient is nonseptic appearing. I suspect this is postsurgical from his perforation. Covered with antibiotics as above. UA, blood cultures, CXR. (4) Rectal bleeding: Plan: Hgb stable. Monitor with CBC in AM (5) Hypothyroidism: Plan: Continue levothyroxine (6) Hyperlipidemia: Plan: Continue atorvastatin (7) Polymyalgia rheumatica: Plan: Historical diagnosis, one episode. Patient reports no current issues with this. Not on any steroids. (8) Alcohol abuse: Plan: Historical diagnosis. Now only drinks 1-2 times a week. No concern for alcohol withdrawal at this time. Plan: VTE prophylaxis -Heparin 5000 units subcu every 12 hourly (on hold due to bleeding as above, now resumed) Thank you for this consult, we will continue to follow along while inpatient Admission and Anticipated Discharge Date Admission Date: January 17, 2021 Subjective Patient evaluated this morning. Pain decreased. Passing gas, walking the hallways. Ostomy seen today, still red but decreased bloody drainage. Advanced diet today.Would like some protein and agreeable to some boost supplementation - chocolate- if available. Will order. No fever, chills, chest pain, shortness of breath (has been using incentive spirometer and demonstrated use correctly). He is hopeful for reversal in the future but no discussions on timing at this current time. Review of Systems Review of Systems: All systems reviewed & are unremarkable except as noted in HPI & below Physical Exam Constitutional: WD/WN, vitals as above Eyes: + anicteric sclerae; normal pupil size ENMT: external ear and nose normal, oropharynx normal Neck: trachea midline, no thyromegaly Respiratory: normal respiratory effort, lungs clear to auscultation Cardiovascular: RRR, no murmur, no edema Gastrointestinal (Abdomen): Inspection/Auscultation: normal bowel sounds Percussion/Palpation: + abdomen tender (generalzied, improving) and abdomen soft; no guarding and abdomen not rigid ostomy with redness, dressing c/d/i. ERNESTINA with scant bloody drainage Musculoskeletal: no cyanosis or clubbing, extremities motor strength 5/5 Skin: no rashes, warm and dry (surgical scar dressed C/D/I, dressing not removed) Neurologic: moves all extremities and awake; not confused Psychiatric: A+Ox3, euthymic affect Results & Data Results & Data ([facility]) Vital Signs (Past 12 Hours) Vital Signs Temp Pulse Pulse Resp BP Pulse Ox 01/20/21 07:08 36.9 C 75 20 151/80 H 94 01/20/21 06:20 135/76 01/20/21 06:17 91 01/19/21 22:43 36.9 C 70 16 152/79 H 97 Laboratory Results 01/20/21 01/20/21 01/19/21 Range/Units 05:24 05:24 22:15 WBC 7.90 (4.8-10.8) K/uL RBC 3.47 L (4.7-6.1) M/uL Hgb 10.7 L (14.0-18.0) g/dL Hct 32.2 L (42-52) % MCV 92.8 (80-100) fL MCH 30.8 (25-34) pg MCHC 33.2 (32-36) g/dL RDW Std Deviation 46.3 (36.4-46.3) fL RDW Coeff of Esther 13.7 (11.5-14.5) % Plt Count 187 (130-400) K/uL MPV 10.1 (7.4-10.4) fL Sodium 135 L (136-145) mmol/L Potassium 3.6 (3.5-5.1) mmol/L Chloride 104 (98-107) mmol/L Carbon Dioxide 27 (21-32) mmol/L Anion Gap 4.0 (3-11) BUN 4 L (7-18) mg/dl Creatinine 0.78 (0.6-1.4) mg/dl Est Cr Clr Drug Dosing 102.3 ml/min Est GFR ( Amer) 109.0 ml/min Est GFR (Non-Af Amer) 94.1 ml/min BUN/Creatinine Ratio 5.6 L (10-20) Glucose 96 (70-99) mg/dl Calcium 8.1 L (8.5-10.1) mg/dl Urine Color Yellow Urine Appearance Clear (Clear) Urine pH 7.0 (4.5-7.5) Ur Specific [place] 1.009 (1.000-1.030) Urine Protein Negative (Negative) Urine Glucose (UA) Negative (Negative) Urine Ketones 2+ H (Negative) Urine Blood Trace H (Negative) Urine Nitrite Negative (Negative) Urine Bilirubin Negative (Negative) Urine Urobilinogen Negative (Negative) Ur Leukocyte Esterase Negative (Negative) Urine WBC (Auto) 1-5 (0-5) /hpf Urine RBC (Auto) 5-10 H (0-4) /hpf U Hyaline Cast (Auto) 0 (0-5) /lpf U Epithel Cells (Auto) 5-10 H (0-5) /lpf Urine Bacteria (Auto) Negative (Negative) PG Care Time/CCT Total # of Minutes Spent Total Time Spent with Patient: Total time spent is greater than 50% in coordination of care (as documented) at patient's floor/unit and/or counseling patient: Coding Level of Care Code 35686 Subseq Hosp Care Lvl 2 Diagnoses S/P colon resection Z90.49 Perforated bowel K63.1 Fever R50.9 Rectal bleeding K62.5 Hypothyroidism E03.9 Hyperlipidemia E78.5 Polymyalgia rheumatica M35.3 Alcohol abuse F10.10
--- NOTE | 2021-01-20 09:14 | Surgery Progress Note ---
Date of Service January 20, 2021 Assessment & Plan (1) S/P colon resection: Plan: Tolerating diet-advance to regular diet Hep-Lock IV Continue IV antibiotics Continue to encourage ambulation May be ready for discharge Wednesday or Admission and Anticipated Discharge Date Admission Date: January 17, 2021 Results & Data ([facility]) Vital Signs (Past 12 Hours) Vital Signs Temp Pulse Pulse Resp BP Pulse Ox 01/20/21 07:08 36.9 C 75 20 151/80 H 94 01/20/21 06:20 135/76 01/20/21 06:17 91 01/19/21 22:43 36.9 C 70 16 152/79 H 97 PG Care Time/CCT Total # of Minutes Spent Total Time Spent with Patient: Total time spent is greater than 50% in coordination of care (as documented) at patient's floor/unit and/or counseling patient: Coding Level of Care Code None Diagnoses S/P colon resection Z90.49
[2021-01-20] MEDS ORDERED: HYDROCODONE/ACETAMOPHEN 5/325MG TAB PO PRN (14:10)
[2021-01-20] MEDS: HYDROCODONE/ACETAMOPHEN 5/325MG TAB PO PRN (15:10)
[2021-01-20] MEDS: MELATONIN 3 MG TAB PO SCH (20:14)
[2021-01-20] MEDS: ATORVASTATIN 20 MG TAB PO SCH (20:15)
[2021-01-21] MEDS: HYDROmorphone INJ 1 MG/ML SYRINGE IV PRN ×4 (02:19→16:32)
[2021-01-21] MEDS: LEVOTHYROXINE SODIUM 50 MCG TABLET PO SCH (05:47)
[2021-01-21] MEDS: metroNIDAZOLE 500 MG/100 ML BAG IV SCH ×3 (05:47→22:35)
[2021-01-21 07:44] LABS: Hematocrit (blood only) 33.1 % (42-52); Hemoglobin 11.1 g/dL (14.0-18.0); Mean Corpuscular Hemoglobin 30.4 pg (25-34); Mean Corpuscular Hgb Conc 33.5 g/dL (32-36); Mean Corpuscular Volume 90.7 fL (80-100); Mean Platelet Volume 9.7 fL (7.4-10.4); Platelet Count 205 K/uL (130-400); RDW Coefficient of Variation 13.6 % (11.5-14.5); RDW Standard Deviation 45.4 fL (36.4-46.3); Red Blood Count 3.65 M/uL (4.7-6.1); White Blood Count 6.03 K/uL (4.8-10.8)
[2021-01-21] MEDS: CIPROFLOXACIN / D5W 400 MG/200 ML BAG IV SCH ×2 (08:04→20:51)
[2021-01-21] MEDS: HEPARIN SOD 5,000 UNIT/0.5 ML VIAL SQ SCH ×2 (08:05→19:42)
--- NOTE | 2021-01-21 08:10 | Hospitalist Progress Note ---
Date of Service January 21, 2021 Assessment & Plan (1) S/P colon resection: Plan: POD #4 s/p bowel resection after perforation during colonoscopy with Dr. Martinez on 01/17 (c-scope with Dr. Kingston) DVT chemical proph held due to bleeding from ostomy -- acute blood loss anemia from colonic bleeding and colonic perforation from colonoscopy as well as dilutional from IVF Remains on Cipro/Flagyl Afebrile, WBC wnl Blood cultures remain NGTD Pathology from colonoscopy with rubular and tubulovillous adenomas to cecum and ascending/descending colon, but does note tubular adenomas with high grade dysplasia on sigmoid polyp --> will need f/u with GI Pathology from colon resection without residual adenoma identified, inflammation noted, numerous diverticula present. Tolerating regular diet, boost supplementation but not much of an appetite while taking pain medication on empty stomach No further IVF Electrolyte replacement as needed -- given additional K given hypokalemia 3.4 to keep closer to 4, also ordered 1gm Mag to closer to 2 Continue to monitor (2) Perforated bowel: Plan: Agree with continuing antibiotics per surgery recommendations with IV ciprofloxacin + metronidazole, if he continues to have fevers or WBC increasing may need to broaden coverage to Zosyn. No further fevers since 38.2C on 01/19 morning so will continue on current Cipro/Flagyl unless spikes temperature again WBC WNL, CXR with atelectasis (utilizing incentive spirometer now) Blood cultures remain NGTD (3) Fever: Plan: 38.2C on 725 AM Patient is nonseptic appearing. I suspect this is postsurgical from his perforation. Covered with antibiotics as above. UA, blood cultures, CXR as above (4) Rectal bleeding: Plan: Hgb stable, improved to 11.1 on repeat (5) Hypothyroidism: Plan: TSH 3.0 in October 2020 Continue levothyroxine (6) Hyperlipidemia: Plan: Continue atorvastatin (7) Polymyalgia rheumatica: Plan: Historical diagnosis, one episode. Patient reports no current issues with this. Not on any steroids. (8) Alcohol abuse: Plan: Historical diagnosis. Now only drinks 1-2 times a week. No concern for alcohol withdrawal at this time. Plan: VTE prophylaxis -Heparin 5000 units subcu every 12 hourly (on hold prior due to bleeding as above, now resumed) Thank you for this consult, we will continue to follow along while inpatient PT/OT consults placed Admission and Anticipated Discharge Date Admission Date: January 17, 2021 Subjective Patient evaluated this morning. Up and walked this mornign. States pain to abdomen across lower portion in region of ostomy/drain. Just had received a dose of pain medication and pain improving. Ostomy with some liquid brown output. Discussed continuing ambulation and hopefully pain subsiding over the next couple days. He is dreading possible reversal in the future and having to deal with these issues again in a couple months down the road. Denies fever, chills, chest pain, shortness of breath, nausea or vomiting. Occasional cough which increases pain but not productive of sputum. Questions/concerns addressed at this time. Review of Systems Review of Systems: All systems reviewed & are unremarkable except as noted in HPI & below Physical Exam Constitutional: WD/WN, vitals as above Eyes: + anicteric sclerae; normal pupil size ENMT: external ear and nose normal, oropharynx normal Neck: trachea midline, no thyromegaly Respiratory: normal respiratory effort, lungs clear to auscultation Cardiovascular: RRR, no murmur, no edema Gastrointestinal (Abdomen): Inspection/Auscultation: normal bowel sounds Percussion/Palpation: + abdomen tender (generalzied) and abdomen soft; no guard ing and abdomen not rigid surgical dressing c/d/i ERNESTINA with 15cc bloody drainage ostomy reddened with liquid brown output noted Musculoskeletal: no cyanosis or clubbing, extremities motor strength 5/5 Skin: no rashes, warm and dry (surgical scar dressed C/D/I, dressing not removed) Neurologic: moves all extremities and awake; not confused Psychiatric: A+Ox3, euthymic affect Results & Data Results & Data ([facility]) Vital Signs (Past 12 Hours) Vital Signs Temp Pulse Resp BP Pulse Ox 01/20/21 22:31 36.6 C 63 14 146/82 H 93 Laboratory Results 01/21/21 01/21/21 Range/Units 07:21 07:21 WBC 6.03 (4.8-10.8) K/uL RBC 3.65 L (4.7-6.1) M/uL Hgb 11.1 L (14.0-18.0) g/dL Hct 33.1 L (42-52) % MCV 90.7 (80-100) fL MCH 30.4 (25-34) pg MCHC 33.5 (32-36) g/dL RDW Std Deviation 45.4 (36.4-46.3) fL RDW Coeff of Esther 13.6 (11.5-14.5) % Plt Count 205 (130-400) K/uL MPV 9.7 (7.4-10.4) fL Sodium 138 (136-145) mmol/L Potassium 3.4 L (3.5-5.1) mmol/L Chloride 104 (98-107) mmol/L Carbon Dioxide 26 (21-32) mmol/L Anion Gap 8.0 (3-11) BUN 7 (7-18) mg/dl Creatinine 0.72 (0.6-1.4) mg/dl Est Cr Clr Drug Dosing 110.8 ml/min Est GFR ( Amer) 112.7 ml/min Est GFR (Non-Af Amer) 97.2 ml/min BUN/Creatinine Ratio 9.9 L (10-20) Glucose 83 (70-99) mg/dl Calcium 8.6 (8.5-10.1) mg/dl Magnesium 1.9 (1.8-2.4) mg/dl PG Care Time/CCT Total # of Minutes Spent Total Time Spent with Patient: Total time spent is greater than 50% in coordination of care (as documented) at patient's floor/unit and/or counseling patient: Coding Level of Care Code 71116 Subseq Hosp Care Lvl 2 Diagnoses S/P colon resection Z90.49 Perforated bowel K63.1 Fever R50.9 Rectal bleeding K62.5 Hypothyroidism E03.9 Hyperlipidemia E78.5 Polymyalgia rheumatica M35.3 Alcohol abuse F10.10
[2021-01-21 08:25] LABS: BUN Creatinine Ratio 9.9 (10-20); Calcium 8.6 mg/dl (8.5-10.1); Creatinine Clr Calc Pharmacy 110.8 ml/min; Est GFR (African American) 112.7 ml/min; Est GFR (Non-African American) 97.2 ml/min; Magnesium 1.9 mg/dl (1.8-2.4); Potassium 3.4 mmol/L (3.5-5.1)
[2021-01-21] MEDS ORDERED: POTASSIUM CHLORIDE CRTAB 20 MEQ TABCR PO STA (09:45)
[2021-01-21] MEDS ORDERED: MAGNESIUM SULFATE / D5W 1 GM/100 ML BAG IV ONE (10:00)
--- NOTE | 2021-01-21 10:11 | Surgery Progress Note ---
Date of Service January 21, 2021 Assessment & Plan (1) Perforated bowel: Plan: Patient status post emergency laparotomy for colon perforation and bleeding Partial colectomy He seems to be doing relatively well-not eating much yet Minimal GI function but improving Poor mobility-encourage ambulation Continue IV antibiotics Possible discharge in 2 to 3 days Admission and Anticipated Discharge Date Admission Date: January 17, 2021 Results & Data ([facility]) Vital Signs (Past 12 Hours) Vital Signs Temp Pulse Resp BP Pulse Ox 01/21/21 09:58 37 C 70 17 161/89 H 92 01/20/21 22:31 36.6 C 63 14 146/82 H 93 PG Care Time/CCT Total # of Minutes Spent Total Time Spent with Patient: Total time spent is greater than 50% in coordination of care (as documented) at patient's floor/unit and/or counseling patient: Coding Level of Care Code None Diagnoses Perforated bowel K63.1
[2021-01-21] MEDS: ONDANSETRON INJ 2 MG/ML 2 ML VIAL IV PRN ×2 (13:39→19:43)
[2021-01-21] MEDS: HYDROCODONE/ACETAMOPHEN 5/325MG TAB PO PRN ×2 (13:39→19:43)
[2021-01-21] MEDS: ATORVASTATIN 20 MG TAB PO SCH (19:41)
[2021-01-21] MEDS: MELATONIN 3 MG TAB PO SCH (19:41)
[2021-01-22] MEDS: HYDROCODONE/ACETAMOPHEN 5/325MG TAB PO PRN ×5 (05:56→19:31)
[2021-01-22] MEDS: LEVOTHYROXINE SODIUM 50 MCG TABLET PO SCH (05:56)
[2021-01-22] MEDS: metroNIDAZOLE 500 MG/100 ML BAG IV SCH ×3 (05:56→21:21)
--- NOTE | 2021-01-22 07:04 | Surgery Progress Note ---
Date of Service January 22, 2021 Assessment & Plan (1) S/P colon resection: Plan: He is doing very well this morning Getting up out of bed well Taking p.o. pain meds Tolerating diet better Continuing with IV antibiotics for now Surgical plan would be possible discharge tomorrow Admission and Anticipated Discharge Date Admission Date: January 17, 2021 Results & Data ([facility]) Vital Signs (Past 12 Hours) Vital Signs Temp Pulse Resp BP Pulse Ox 01/21/21 22:47 36.7 C 58 L 16 158/82 H 91 PG Care Time/CCT Total # of Minutes Spent Total Time Spent with Patient: Total time spent is greater than 50% in coordination of care (as documented) at patient's floor/unit and/or counseling patient: Coding Level of Care Code None Diagnoses S/P colon resection Z90.49
--- NOTE | 2021-01-22 07:41 | Hospitalist Progress Note ---
Date of Service January 22, 2021 Assessment & Plan (1) S/P colon resection: Plan: POD #5 s/p bowel resection after perforation during colonoscopy with Dr. Martinez on 01/17 (c-scope with Dr. Kingston) DVT chemical proph held due to bleeding from ostomy -- acute blood loss anemia from colonic bleeding and colonic perforation from colonoscopy as well as dilutional from IVF Remains on Cipro/Flagyl Afebrile, WBC wnl Blood cultures remain NGTD Pathology from colonoscopy with tubular and tubulovillous adenomas to cecum and ascending/descending colon, but does note tubular adenomas with high grade dysplasia on sigmoid polyp --> will need f/u with GI Pathology from colon resection without residual adenoma identified, inflammation noted, numerous diverticula present. Tolerating regular diet, boost supplementation Improvement of pain today and tolerating oral pain medications, ambulating Electrolyte replacement as needed to keep K~4, Mag ~2 Continue to monitor (2) Perforated bowel: Plan: Agree with continuing antibiotics per surgery recommendations with IV ciprofloxacin + metronidazole, if he continues to have fevers or WBC increasing may need to broaden coverage to Zosyn. No further fevers since 38.2C on 01/19 morning so will continue on current Cipro/Flagyl unless spikes temperature again WBC WNL, CXR with atelectasis (utilizing incentive spirometer now) Blood cultures remain NGTD (3) Fever: Plan: 38.2C on 01/19 AM Patient is nonseptic appearing. I suspect this is postsurgical from his perforation. Covered with antibiotics as above. UA, blood cultures, CXR as above (4) Rectal bleeding: Plan: Hgb stable, improved on repeat (5) Hypothyroidism: Plan: TSH 3.0 in October 2020 Continue levothyroxine (6) Hyperlipidemia: Plan: Continue atorvastatin (7) Polymyalgia rheumatica: Plan: Historical diagnosis, one episode. Patient reports no current issues with this. Not on any steroids. (8) Alcohol abuse: Plan: Historical diagnosis. Now only drinks 1-2 times a week. No concern for alcohol withdrawal at this time. Plan: VTE prophylaxis -Heparin 5000 units subcu every 12 hourly (on hold prior due to bleeding as above, now resumed) Thank you for this consult, we will continue to follow along while inpatient PT/OT consults placed Admission and Anticipated Discharge Date Admission Date: January 17, 2021 Subjective Patient evaluated this morning. Doing much better than days past. Tolerating oral pain control, pain decreased. Did have accident working with therapy and bending over and ostomy seal came loose --> addressed and functions/intact. Increased ostomy output, decreased ERNESTINA output. HE would like to stay 1 day past removal of ERNESTINA to ensure no issues and be more comfortable at home. No fever, chills, chest pain, shortness of breath, nausea or vomiting. 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 Anticipates d/c in next 24-48 hours with home health. Review of Systems Review of Systems: All systems reviewed & are unremarkable except as noted in HPI & below Physical Exam Constitutional: WD/WN, vitals as above Eyes: + anicteric sclerae; normal pupil size ENMT: external ear and nose normal, oropharynx normal Neck: trachea midline, no thyromegaly Respiratory: normal respiratory effort, lungs clear to auscultation Cardiovascular: RRR, no murmur, no edema Gastrointestinal (Abdomen): Inspection/Auscultation: normal bowel sounds Percussion/Palpation: + abdomen tender (generalzied (decreased)) and abdomen soft; no guarding and abdomen not rigid surgical dressing c/d/i ERNESTINA with 10cc bloody drainage ostomy reddened with increased liquid brown output noted Musculoskeletal: no cyanosis or clubbing, extremities motor strength 5/5 Skin: no rashes, warm and dry (surgical scar dressed C/D/I, dressing not removed) Neurologic: moves all extremities and awake; not confused Psychiatric: A+Ox3, euthymic affect Results & Data Results & Data ([facility]) Vital Signs (Past 12 Hours) Vital Signs Temp Pulse Resp BP Pulse Ox 01/21/21 22:47 36.7 C 58 L 16 158/82 H 91 Laboratory Results 01/22/21 01/22/21 Range/Units 09:41 09:41 WBC 6.42 (4.8-10.8) K/uL RBC 3.73 L (4.7-6.1) M/uL Hgb 11.4 L (14.0-18.0) g/dL Hct 33.8 L (42-52) % MCV 90.6 (80-100) fL MCH 30.6 (25-34) pg MCHC 33.7 (32-36) g/dL RDW Std Deviation 45.6 (36.4-46.3) fL RDW Coeff of Esther 13.6 (11.5-14.5) % Plt Count 228 (130-400) K/uL MPV 9.4 (7.4-10.4) fL Sodium 136 (136-145) mmol/L Potassium 3.5 (3.5-5.1) mmol/L Chloride 103 (98-107) mmol/L Carbon Dioxide 30 (21-32) mmol/L Anion Gap 3.0 (3-11) BUN 9 (7-18) mg/dl Creatinine 0.80 (0.6-1.4) mg/dl Est Cr Clr Drug Dosing 99.7 ml/min Est GFR ( Amer) 107.9 ml/min Est GFR (Non-Af Amer) 93.1 ml/min BUN/Creatinine Ratio 10.8 (10-20) Glucose 118 H (70-99) mg/dl Calcium 8.4 L (8.5-10.1) mg/dl Magnesium 1.8 (1.8-2.4) mg/dl Total Bilirubin 0.5 (0.2-1) mg/dl AST 21 (15-37) U/L ALT 20 (12-78) U/L Alkaline Phosphatase 48 (45-117) U/L Total Protein 6.6 (6.4-8.2) gm/dl Albumin 3.0 L (3.4-5.0) gm/dl Globulin 3.6 (2.5-4.0) gm/dl Albumin/Globulin Ratio 0.8 L (0.9-2) PG Care Time/CCT Total # of Minutes Spent Total Time Spent with Patient: Total time spent is greater than 50% in coordination of care (as documented) at patient's floor/unit and/or counseling patient: Coding Level of Care Code 04313 Subseq Hosp Care Lvl 2 Diagnoses S/P colon resection Z90.49 Perforated bowel K63.1 Fever R50.9 Rectal bleeding K62.5 Hypothyroidism E03.9 Hyperlipidemia E78.5 Polymyalgia rheumatica M35.3 Alcohol abuse F10.10
[2021-01-22] MEDS: CIPROFLOXACIN / D5W 400 MG/200 ML BAG IV SCH ×2 (08:30→19:56)
[2021-01-22] MEDS: HEPARIN SOD 5,000 UNIT/0.5 ML VIAL SQ SCH ×2 (08:36→19:55)
[2021-01-22 09:59] LABS: Hematocrit (blood only) 33.8 % (42-52); Hemoglobin 11.4 g/dL (14.0-18.0); Mean Corpuscular Hemoglobin 30.6 pg (25-34); Mean Corpuscular Hgb Conc 33.7 g/dL (32-36); Mean Corpuscular Volume 90.6 fL (80-100); Mean Platelet Volume 9.4 fL (7.4-10.4); Platelet Count 228 K/uL (130-400); RDW Coefficient of Variation 13.6 % (11.5-14.5); RDW Standard Deviation 45.6 fL (36.4-46.3); Red Blood Count 3.73 M/uL (4.7-6.1); White Blood Count 6.42 K/uL (4.8-10.8)
[2021-01-22 10:20] LABS: BUN Creatinine Ratio 10.8 (10-20); Calcium 8.4 mg/dl (8.5-10.1); Creatinine Clr Calc Pharmacy 99.7 ml/min; Est GFR (African American) 107.9 ml/min; Est GFR (Non-African American) 93.1 ml/min; Magnesium 1.8 mg/dl (1.8-2.4); Potassium 3.5 mmol/L (3.5-5.1)
[2021-01-22 10:24] LABS: Albumin Globulin Ratio 0.8 (0.9-2); Bilirubin,Total 0.5 mg/dl (0.2-1); Globulin 3.6 gm/dl (2.5-4.0); Total Protein 6.6 gm/dl (6.4-8.2)
[2021-01-22] MEDS ORDERED: POTASSIUM CHLORIDE CRTAB 20 MEQ TABCR PO STA (11:08)
[2021-01-22] MEDS ORDERED: MAGNESIUM SULFATE / D5W 1 GM/100 ML BAG IV ONE (11:08)
[2021-01-22] MEDS: ATORVASTATIN 20 MG TAB PO SCH (19:55)
[2021-01-22] MEDS: MELATONIN 3 MG TAB PO SCH (19:55)
[2021-01-23] MEDS: HYDROCODONE/ACETAMOPHEN 5/325MG TAB PO PRN ×4 (00:55→14:14)
[2021-01-23] MEDS: LEVOTHYROXINE SODIUM 50 MCG TABLET PO SCH (05:50)
[2021-01-23] MEDS: metroNIDAZOLE 500 MG/100 ML BAG IV SCH (05:50)
--- NOTE | 2021-01-23 08:12 | Surgery Progress Note ---
Date of Service January 23, 2021 Assessment & Plan (1) S/P colon resection: Plan: Patient is doing well but he is very anxious about having the drains in place, care of his stoma and being switched to oral antibiotics He does not want to go home for a day or 2 prior to all these things being cared for We will remove his Stanton drain and ERNESTINA drain We will switch him to p.o. antibiotics likely for 1 more week I do feel 1-2 more days may be beneficial for him He will need visiting nurse Admission and Anticipated Discharge Date Admission Date: January 17, 2021 Results & Data ([facility]) Vital Signs (Past 12 Hours) Vital Signs Temp Pulse Resp BP Pulse Ox 01/23/21 07:15 36.9 C 60 16 156/85 H 93 01/22/21 23:05 37 C 61 16 123/71 91 PG Care Time/CCT Total # of Minutes Spent Total Time Spent with Patient: Total time spent is greater than 50% in coordination of care (as documented) at patient's floor/unit and/or counseling patient: Coding Level of Care Code None Diagnoses S/P colon resection Z90.49
[2021-01-23 08:24] LABS: Alanine Aminotransferase 22 U/L (12-78); Aspartate Aminotransferase 26 U/L (15-37); BUN Creatinine Ratio 9.4 (10-20); Bilirubin Direct < 0.1 mg/dl (0-0.2); Blood Urea Nitrogen 8 mg/dl (7-18); Calcium 8.1 mg/dl (8.5-10.1); Carbon Dioxide 28 mmol/L (21-32); Chloride 105 mmol/L (98-107); Creatinine Clr Calc Pharmacy 93.8 ml/min; Est GFR (African American) 105.2 ml/min; Est GFR (Non-African American) 90.8 ml/min; Glucose 96 mg/dl (70-99); Potassium 3.6 mmol/L (3.5-5.1); Sodium 138 mmol/L (136-145)
[2021-01-23 08:27] LABS: Alkaline Phosphatase 55 U/L (45-117); Bilirubin,Total 0.3 mg/dl (0.2-1); Total Protein 6.8 gm/dl (6.4-8.2)
--- NOTE | 2021-01-23 08:38 | Hospitalist Progress Note ---
Date of Service January 23, 2021 Assessment & Plan (1) S/P colon resection: Plan: POD #6 s/p bowel resection after perforation during colonoscopy with Dr. Martinez on 01/17 (c-scope with Dr. Kingston) DVT chemical proph held due to bleeding from ostomy -- acute blood loss anemia from colonic bleeding and colonic perforation from colonoscopy as well as dilutional from IVF Remains on Cipro/Flagyl Blood cultures remain NGTD Pathology from colonoscopy with tubular and tubulovillous adenomas to cecum and ascending/descending colon, but does note tubular adenomas with high grade dysplasia on sigmoid polyp --> will need f/u with GI for sooner c-scope per conversation with Dr. Martinez this afternoon Pathology from colon resection without residual adenoma identified, inflammation noted, numerous diverticula present. Tolerating regular diet, boost supplementation Improvement of pain today and tolerating oral pain medications, ambulating Electrolyte replacement as needed . Stable Continue to monitor ERNESTINA and Dona d/c'd today. Home health arranged at discharge WBC wnl, afebrile Possible d/c tomorrow (2) Perforated bowel: Plan: Agree with continuing antibiotics per surgery recommendations with IV ciprofl oxacin + metronidazole, if he continues to have fevers or WBC increasing may need to broaden coverage to Zosyn. No further fevers since 38.2C on 01/19 morning so will continue on current Cipro/Flagyl unless spikes temperature again WBC WNL CXR with atelectasis (utilizing incentive spirometer now) -- 96% on RA Blood cultures remain NGTD (3) Fever: Plan: 38.2C on 7 AM Patient is nonseptic appearing. I suspect this is postsurgical from his perforation. Covered with antibiotics as above. UA, blood cultures, CXR as above (4) Rectal bleeding: Plan: Hgb stable, improved on repeat (5) Hypothyroidism: Plan: TSH 3.0 in October 2020 Continue levothyroxine (6) Hyperlipidemia: Plan: Continue atorvastatin (7) Polymyalgia rheumatica: Plan: Historical diagnosis, one episode. Patient reports no current issues with this. Not on any steroids. (8) Alcohol abuse: Plan: Historical diagnosis. Now only drinks 1-2 times a week. No concern for alcohol withdrawal at this time. VTE prophylaxis -Heparin 5000 units subcu every 12 hourly (on hold prior due to bleeding as above, now resumed) Plan: Plans for d/c with home health tomorrow. Thank you for this consult. Hospitalist service will chart check in AM but sign off at this time. Please call with any questions/concerns. Admission and Anticipated Discharge Date Admission Date: January 17, 2021 Subjective Patient evaluated this morning. Up in bathroom. Doing well. Pain controlled on orals. Switched to oral antibiotics. ERNESTINA and dona drain removed this morning and much more comfortable. Planning on waiting to monitor on oral abx and possible d/c 1-2 days. No fever, chills, chest pain, shortness of breath, abdominal pain, nausea, vomiting, dysuria at htis time. Chronic prostate issues and urinates 3x/day. Review of Systems Review of Systems: All systems reviewed & are unremarkable except as noted in HPI & below Physical Exam Constitutional: WD/WN, vitals as above Eyes: + anicteric sclerae; normal pupil size ENMT: external ear and nose normal, oropharynx normal Neck: trachea midline, no thyromegaly Respiratory: normal respiratory effort, lungs clear to auscultation Cardiovascular: RRR, no murmur, no edema Gastrointestinal (Abdomen): Inspection/Auscultation: normal bowel sounds Percussion/Palpation: + abdomen tender (generalzied (decreased)) and abdomen soft; no guarding and abdomen not rigid ostomy with brown liquid output ERNESTINA and dona since removed Musculoskeletal: no cyanosis or clubbing, extremities motor strength 5/5 Skin: no rashes, warm and dry (surgical scar dressed C/D/I, dressing not removed) Neurologic: moves all extremities and awake; not confused Psychiatric: A+Ox3, euthymic affect Results & Data Results & Data ([facility]) Vital Signs (Past 12 Hours) Vital Signs Temp Pulse Resp BP Pulse Ox 01/23/21 07:15 36.9 C 60 16 156/85 H 93 01/22/21 23:05 37 C 61 16 123/71 91 Laboratory Results 01/23/21 01/22/21 01/22/21 Range/Units 07:43 09:41 09:41 WBC 6.42 (4.8-10.8) K/uL RBC 3.73 L (4.7-6.1) M/uL Hgb 11.4 L (14.0-18.0) g/dL Hct 33.8 L (42-52) % MCV 90.6 (80-100) fL MCH 30.6 (25-34) pg MCHC 33.7 (32-36) g/dL RDW Std Deviation 45.6 (36.4-46.3) fL RDW Coeff of Esther 13.6 (11.5-14.5) % Plt Count 228 (130-400) K/uL MPV 9.4 (7.4-10.4) fL Sodium 138 136 (136-145) mmol/L Potassium 3.6 3.5 (3.5-5.1) mmol/L Chloride 105 103 (98-107) mmol/L Carbon Dioxide 28 30 (21-32) mmol/L Anion Gap 5.0 3.0 (3-11) BUN 8 9 (7-18) mg/dl Creatinine 0.85 0.80 (0.6-1.4) mg/dl Est Cr Clr Drug Dosing 93.8 99.7 ml/min Est GFR ( Amer) 105.2 107.9 ml/min Est GFR (Non-Af Amer) 90.8 93.1 ml/min BUN/Creatinine Ratio 9.4 L 10.8 (10-20) Glucose 96 118 H (70-99) mg/dl Calcium 8.1 L 8.4 L (8.5-10.1) mg/dl Magnesium 2.0 1.8 (1.8-2.4) mg/dl Total Bilirubin 0.3 0.5 (0.2-1) mg/dl Direct Bilirubin < 0.1 (0-0.2) mg/dl AST 26 21 (15-37) U/L ALT 22 20 (12-78) U/L Alkaline Phosphatase 55 48 (45-117) U/L Total Protein 6.8 6.6 (6.4-8.2) gm/dl Albumin 3.0 L 3.0 L (3.4-5.0) gm/dl Globulin 3.6 (2.5-4.0) gm/dl Albumin/Globulin Ratio 0.8 L (0.9-2) PG Care Time/CCT Total # of Minutes Spent Total Time Spent with Patient: Total time spent is greater than 50% in coordination of care (as documented) at patient's floor/unit and/or counseling patient: Coding Level of Care Code 53597 Subseq Hosp Care Lvl 2 Diagnoses S/P colon resection Z90.49 Perforated bowel K63.1 Fever R50.9 Rectal bleeding K62.5 Hypothyroidism E03.9 Hyperlipidemia E78.5 Polymyalgia rheumatica M35.3 Alcohol abuse F10.10
[2021-01-23] MEDS: CIPROFLOXACIN 500 MG TAB PO SCH ×2 (09:49→20:42)
[2021-01-23] MEDS: HEPARIN SOD 5,000 UNIT/0.5 ML VIAL SQ SCH ×2 (09:49→20:43)
[2021-01-23] MEDS: metroNIDAZOLE 500 MG TAB PO SCH ×2 (13:29→20:43)
[2021-01-23] MEDS: ATORVASTATIN 20 MG TAB PO SCH (20:42)
[2021-01-23] MEDS: MELATONIN 3 MG TAB PO SCH (20:43)
[2021-01-24] MEDS: HYDROCODONE/ACETAMOPHEN 5/325MG TAB PO PRN ×4 (01:45→16:21)
[2021-01-24] MEDS: LEVOTHYROXINE SODIUM 50 MCG TABLET PO SCH (06:24)
[2021-01-24] MEDS: CIPROFLOXACIN 500 MG TAB PO SCH (07:33)
[2021-01-24] MEDS: HEPARIN SOD 5,000 UNIT/0.5 ML VIAL SQ SCH (07:33)
[2021-01-24] MEDS: metroNIDAZOLE 500 MG TAB PO SCH ×2 (07:33→11:14)
--- NOTE | 2021-01-24 08:20 | Surgery Progress Note ---
Date of Service January 24, 2021 Assessment & Plan (1) S/P colon resection: Plan: POD 6 stable for discharge with home health Admission and Anticipated Discharge Date Admission Date: January 17, 2021 Subjective tolerating diet and antibiotics, wants to go home Physical Exam Gastrointestinal (Abdomen): Inspection/Auscultation: + abdominal surgical incision (dressing dry); abdomen not distended Percussion/Palpation: abdomen soft Results & Data ([facility]) Vital Signs (Past 12 Hours) Vital Signs Temp Pulse Resp BP Pulse Ox 01/24/21 08:01 36.7 C 64 16 155/78 H 95 01/23/21 23:15 36.6 C 65 16 147/79 H 94 PG Care Time/CCT Total # of Minutes Spent Total Time Spent with Patient: Total time spent is greater than 50% in coordination of care (as documented) at patient's floor/unit and/or counseling patient: Coding Level of Care Code None Diagnoses S/P colon resection Z90.49
--- NOTE | 2021-01-27 14:00 | Discharge Summary (DS) ---
DATE OF DISCHARGE: 01/24/2021. PRINCIPAL DIAGNOSES: Colon perforation and colonic bleeding. PROCEDURES: The patient underwent laparotomy with colon resection and end colostomy. HISTORY OF PRESENT ILLNESS: The patient is a 65-year-old male who on 01/17/2021 was undergoing colon oscopy and found to have a polyp in the sigmoid colon, which was biopsied and then had significant tr ouble with bleeding. It was clipped multiple times and there was concern that not only the bleeding, which we felt possibly stopped, but that there could be a perforation. He underwent urgent CAT scan , which did show a perforation. He was taken emergently to the operating room on 01/17/2021 where he underwent laparotomy with sigmoid colon resection and end colostomy. He did well from the operation . He was somewhat slow to regain his GI function and also his mobility, but he did progress without significant problems and was felt stable for discharge on 01/24/2021 to be followed in the surgical [facility] within 1-2 weeks. Job ID: [id number]
== END 2021-01-24 17:11 | disposition home health service (06) | DRG 908 ==
LOC: ENDO 11:48 → 1E 20:08 → 3N 01-18 08:40

== ENCOUNTER 2022-07-19 21:58 | Observation (INO) ==
[2022-07-19] MEDS ORDERED: SODIUM CHLORIDE 0.9% 1000ML 1,000 ML IV ONE (22:12)
[2022-07-19] MEDS ORDERED: cefTRIAXone SODIUM 2,000 MG/70 ML BAG IV STA (22:21)
[2022-07-19] MEDS ORDERED: ONDANSETRON INJ 2 MG/ML 2 ML VIAL IV STA (22:34)
--- NOTE | 2022-07-19 23:00 | Emergency Department Note ---
Impression & Plan Abdominal pain, Transaminitis, Acute hyponatremia, Alcohol abuse ED Provider Note NAME: ANIKA GERMAN AGE: 67 SEX: M : 1955 ARRIVES VIA: Walk-In INFORMANT: Patient ED PROVIDER(S): Fernie Villalta DO CHIEF COMPLAINT: abdominal pain, vomiting and fever HPI: Patient is a 67-year-old male who presents the ER with a past medical history of alcohol abuse, hypertension, depression who presents the ER for abdominal pain, fevers of 102, associate with nausea vomiting. On Wednesday he was treated with Macrobid by urology. Fever started on Wednesday. He does have some shaking chills. Does have diffuse pain throughout his belly. No other exacerbating or remitting factors. He does admit to a cough and some congestion but notes that he always has this but it is slightly worse today. PAST MEDICAL HISTORY:See Below PAST SURGICAL HISTORY:See Below FAMILY HISTORY:See Below SOCIAL HISTORY:See Below HOME MEDICATIONS:See Below ALLERGIES:See Below VITALS:See Below PHYSICAL EXAMINATION: GENERAL: Sitting up in bed, alert, well appearing, well nourished, no distress, non-toxic EYE EXAM: normal conjunctiva. PERRL and EOM's grossly intact. OROPHARYNX: no exudate, no erythema, lips, buccal mucosa, and tongue normal and mucous membranes are moist NECK: supple, no nuchal rigidity, no adenopathy, non-tender LUNGS: Clear to auscultation. Normal chest wall mechanics HEART: no murmurs, S1 normal and S2 normal ABDOMEN: abdomen soft, non-tender, normo-active bowel sounds, no masses, no rebound or guarding. UPPER EXTREMITIES: upper extremities are grossly normal. LOWER EXTREMITIES: No pitting edema. NEURO EXAM: Normal sensorium, cranial nerves II-XII grossly intact, normal speech, no gross weakness of arms, no gross weakness of legs. MEDICAL DECISION MAKING: Patient is a 67-year-old male who presents the ER for fevers associated with abdominal pain nausea vomiting. Currently on Macrobid. IV was established blood was obtained. Labs show no significant leukocytosis or anemia. BMP with mild hyponatremia 133. Significant transaminitis 400-300. Bilirubin was unremarkable. Lipase was normal. Pro-Manjeet was normal. UA with small amount hematuria. CT abdomen pelvis showed no acute pathology. Patient was given IV fluids Zofran. [place] significantly better. Discussed with hospitalist for further evaluation regards to the fevers of 102 and the transaminitis in combination with abdominal pain and nausea vomiting. Of note he does still drink about 3 times a week. He drinks about half of 1/5 2-3 times a week. External records were reviewed. Patient was discussed with Dr. Yousif Damico for further evaluation and treatment as well as his presentation work-up. Patient was also given IV fluids and Rocephin while in the ER upon initial presentation. external records were reviewed. Triage Nursing notes reviewed. Limited review of prior medical records performed Vital Signs: reviewed and remarkable for no significant abnormalities Differential diagnosis: Differential diagnosis includes etiologies such as sepsis, UTI, pneumonia, metabolic, electrolyte abnormalities, cardiac sources, intracerebral event, toxicologic, neurological, as well as others were entertained. ER treatment provided: See below Diagnostics interpreted by me include EKG and cardiac monitoring as listed below: -Cardiac Monitoring: An order was placed for continuous cardiac monitoring. The monitor shows a rate of 80 with sinus rhythm. -ECG: Sinus rhythm rate 89 Normal axis No PVCs QTC 420 -Laboratory studies:Interpreted by me as stated above in MDM and shown below. Imaging studies: Xrays: As interpreted by me: Portable AP upright 1 view the chest shows no focal infiltrate or pneumothorax CTs show: CT abdomen pelvis shows no acute pathology per stat read Consultation(s): Discussed with Dr. Yousif Damico in regards to presentation, treatment work-up and further evaluation Procedures:none Critical Care: None Past Med/Surg History Medical History ADD (attention deficit disorder) Alcohol abuse Benign prostatic hyperplasia with urinary obstruction Bipolar 1 disorder BPH (benign prostatic hyperplasia) Erectile dysfunction History of cardiac murmur as a child Hyperlipidemia Hypothyroid Incomplete bladder emptying Kidney stones Osteoarthritis PMR (polymyalgia rheumatica) Prediabetes Pulmonary nodule Sensorineural hearing loss of both ears Suicidal ideation Tinnitus Surgical History History of bowel resection History of carpal tunnel release History of colonoscopy History of lithotripsy History of shoulder surgery History of tooth extraction Family History Father Hypertension Heart disease Mother Hypertension Heart disease Stroke Sister Lung cancer Other No family history of adverse response to anesthesia No family history of bleeding disorder Denies family history of Ovarian cancer Prostate cancer Breast cancer Colorectal cancer Social History Smoking Status: Current every day smoker Tobacco Type: Cigarettes Age Started Using Tobacco: 13; packs per day: 1; Cigarettes Per Day: 4-5; Second Hand Exposure: Yes; Hx Alcohol Use: Yes Alcohol type: beer and hard liquor Hx Substance Use: Yes Substance Use Type Other:: marijuana use once per day Preferred Language: Palestinian Communication Ability: Effective Visual Impairment: No Limitations Hearing Ability: Normal Wood Heel Flap Trimmer Required: No Beliefs That Will Affect Care: None marital status: Single Current Living Situation: Significant Other current occupational status: unemployed How many Children do You have: 0 Feels Safe at Home: Yes Childhood Exposure to Second-Hand Smoke: No Diet Comment: regular diet caffeine: Yes (1 cup of coffee) during the past year weight has: increased > 10 lbs Dental Care, Regularly: No Physical Activity Frequency: 3-4 Times per Week 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, total gym, potato pancake frier Seatbelt Use: sometimes Sunscreen Use: No Assistive Devices: Glasses Allergies Allergies Allergy/AdvReac Type Severity Reaction Status Date / Time Sulfa (Sulfonamide Allergy Severe ANAPHYLAXIS Verified 07/19/22 22:42 Antibiotics) nickel Allergy Intermediate SKIN RASH Verified 07/19/22 22:42 alfuzosin Allergy Unknown Unknown Verified 07/19/22 22:42 Horse/Equine Containing Allergy Unknown UNKNOWN - Verified 07/19/22 22:42 Products HAPPENED A CHILD Penicillins Allergy Unknown UNKNOWN - Verified 07/19/22 22:42 HAPPENED CHILD Home Meds Home Medications Medication Instructions Recorded Confirmed multivit with min-folic 1 tab PO Q OTHER DAY #0 tabs 04/12/19 07/19/22 acid-lutein 400 mcg-250 mcg chewable tablet (Centrum Silver) melatonin 5 mg capsule 10 mg PO HS 11/19/20 07/19/22 acetaminophen 500 mg tablet 1,000 mg PO DIRECTED PRN 06/26/21 07/19/22 (Tylenol Extra Strength) PAIN/FEVER Previous Rx's Medication Instructions Recorded polyethylene glycol 3350 17 8.5 g PO DAILY PRN constipation 11/26/21 gram/dose oral powder (Miralax) #119 grams levothyroxine 50 mcg tablet 50 mcg PO QAM #90 tabs 01/30/22 atorvastatin 20 mg tablet 20 mg PO HS #90 tabs 03/04/22 lisinopril 10 mg tablet 10 mg PO DAILY #30 tabs 07/07/22 nitrofurantoin 100 mg PO BID 7 days #14 caps 07/13/22 monohydrate/macrocrystals 100 mg capsule (Macrobid) Results & Data (ED) Vital Signs Vital Signs - 24 hr 07/19/22 22:02 07/19/22 22:27 07/19/22 22:12 Temperature 37.2 C Temperature Source Oral Pulse Rate 93 H 83 Pulse Rate [Finger] 82 Respiratory Rate 20 18 Respiratory Effort / Characteristics Non-Labored Spontaneous Respiratory Depth Normal Blood Pressure 145/75 H Blood Pressure [Right Arm] 121/76 Blood Pressure Mean 98 Blood Pressure Mean [Right Arm] 91 Pulse Oximetry 93 96 91 Oxygen Delivery Method Room Air Sepsis Recent Fever Within 48 Hours No Sepsis New/Unexplained Change in Mental Status N/A Sepsis Action Taken by Nursing No Action Required 07/20/22 00:20 Temperature Temperature Source Pulse Rate Pulse Rate [Finger] 81 Respiratory Rate Respiratory Effort / Characteristics Respiratory Depth Blood Pressure Blood Pressure [Right Arm] 103/67 Blood Pressure Mean Blood Pressure Mean [Right Arm] 79 Pulse Oximetry 92 Oxygen Delivery Method Room Air Sepsis Recent Fever Within 48 Hours Sepsis New/Unexplained Change in Mental Status Sepsis Action Taken by Nursing Laboratory Data 07/19/22 22:30 07/19/22 22:30 Lab Results 07/19/22 07/19/22 07/19/22 Range/Units 22:30 22:30 22:30 WBC 6.46 (4.8-10.8) K/ul RBC 4.85 (4.63-6.08) M/uL Hgb 15.1 (14.0-18.0) g/dl Hct 42.8 (40.1-51.0) % MCV 88.2 (80.0-100.0) fL MCH 31.1 (25.0-34.0) pg MCHC 35.3 (32.0-36.0) g/dL RDW Std Deviation 41.8 (36.4-46.3) fL RDW Coeff of Esther 12.9 (11.5-14.5) % Plt Count 163 (130-400) K/uL MPV 10.1 (9.4-12.4) fL Immature Gran % (Auto) 0.3 % Neut % (Auto) 87.9 % Lymph % (Auto) 5.9 % [place] % (Auto) 4.5 % Eos % (Auto) 1.1 % Baso % (Auto) 0.3 % Neut # (Auto) 5.68 (1.4-6.5) K/uL Lymph # (Auto) 0.38 L (1.2-3.4) K/uL [place] # (Auto) 0.29 (0.24-0.82) K/uL Eos # (Auto) 0.07 (0-0.50) K/uL Baso # (Auto) 0.02 (0-0.2) K/uL Immature Gran # (Auto) 0.02 (0.00-0.02) K/uL Sodium 133 L (136-145) mmol/L Potassium 3.9 (3.5-5.1) mmol/L Chloride 99 (98-107) mmol/L Carbon Dioxide 27 (21-32) mmol/L Anion Gap 7 (3-11) BUN 14 (6-23) mg/dl Creatinine 0.95 (0.6-1.4) mg/dl Est Cr Clr Drug Dosing 81.7 ml/min Est GFR ( Amer) 94.9 ml/min Est GFR (Non-Af Amer) 81.9 ml/min BUN/Creatinine Ratio 14.7 (10-20) Glucose 145 H (70-99(Fasting)) mg/dl Lactate 1.0 (0.4-2.0) mmol/L Calcium 9.4 (8.5-10.1) mg/dl Magnesium 1.7 (1.7-2.4) mg/dl Total Bilirubin 0.7 (0.2-1.0) mg/dl Direct Bilirubin 0.1 (0-0.2) mg/dl AST 415 H (13-39) U/L ALT 335 H (7-52) U/L Alkaline Phosphatase 126 H (34-104) U/L Troponin I High Sens 9.8 (0-20) pg/ml Total Protein 7.6 (6.0-8.3) gm/dl Albumin 4.3 (3.4-5.0) gm/dl Lipase 37 (11-82) U/L Procalcitonin (0-0.5) ng/ml Urine Color Urine Appearance (Clear) Urine pH (4.5-7.5) Ur Specific [place] (1.000-1.030) Urine Protein (Negative) Urine Glucose (UA) (Negative) Urine Ketones (Negative) Urine Blood (Negative) Urine Nitrite (Negative) Urine Bilirubin (Negative) Urine Urobilinogen (Negative) Ur Leukocyte Esterase (Negative) Urine WBC (Auto) (0-5) /hpf Urine RBC (Auto) (0-4) /hpf U Hyaline Cast (Auto) (0-5) /lpf U Epithel Cells (Auto) (0-5) /lpf Urine Bacteria (Auto) (Negative) 07/19/22 07/19/22 Range/Units 22:30 22:41 WBC (4.8-10.8) K/ul RBC (4.63-6.08) M/uL Hgb (14.0-18.0) g/dl Hct (40.1-51.0) % MCV (80.0-100.0) fL MCH (25.0-34.0) pg MCHC (32.0-36.0) g/dL RDW Std Deviation (36.4-46.3) fL RDW Coeff of Esther (11.5-14.5) % Plt Count (130-400) K/uL MPV (9.4-12.4) fL Immature Gran % (Auto) % Neut % (Auto) % Lymph % (Auto) % [place] % (Auto) % Eos % (Auto) % Baso % (Auto) % Neut # (Auto) (1.4-6.5) K/uL Lymph # (Auto) (1.2-3.4) K/uL [place] # (Auto) (0.24-0.82) K/uL Eos # (Auto) (0-0.50) K/uL Baso # (Auto) (0-0.2) K/uL Immature Gran # (Auto) (0.00-0.02) K/uL Sodium (136-145) mmol/L Potassium (3.5-5.1) mmol/L Chloride (98-107) mmol/L Carbon Dioxide (21-32) mmol/L Anion Gap (3-11) BUN (6-23) mg/dl Creatinine (0.6-1.4) mg/dl Est Cr Clr Drug Dosing ml/min Est GFR ( Amer) ml/min Est GFR (Non-Af Amer) ml/min BUN/Creatinine Ratio (10-20) Glucose (70-99(Fasting)) mg/dl Lactate (0.4-2.0) mmol/L Calcium (8.5-10.1) mg/dl Magnesium (1.7-2.4) mg/dl Total Bilirubin (0.2-1.0) mg/dl Direct Bilirubin (0-0.2) mg/dl AST (13-39) U/L ALT (7-52) U/L Alkaline Phosphatase (34-104) U/L Troponin I High Sens (0-20) pg/ml Total Protein (6.0-8.3) gm/dl Albumin (3.4-5.0) gm/dl Lipase (11-82) U/L Procalcitonin 0.20 (0-0.5) ng/ml Urine Color Dark Yellow Urine Appearance Clear (Clear) Urine pH 5.5 (4.5-7.5) Ur Specific [place] 1.034 H (1.000-1.030) Urine Protein 2+ H (Negative) Urine Glucose (UA) Negative (Negative) Urine Ketones Trace H (Negative) Urine Blood 3+ H (Negative) Urine Nitrite Negative (Negative) Urine Bilirubin Negative (Negative) Urine Urobilinogen Negative (Negative) Ur Leukocyte Esterase Negative (Negative) Urine WBC (Auto) 1-5 (0-5) /hpf Urine RBC (Auto) 10-30 H (0-4) /hpf U Hyaline Cast (Auto) 1-5 (0-5) /lpf U Epithel Cells (Auto) 5-10 H (0-5) /lpf Urine Bacteria (Auto) Negative (Negative) Administered Medications Discontinued Medications Sodium Chloride (Nss 1000ml) 1,000 mls @ 999 mls/hr IV .Q1H1M ONE Stop: 07/19/22 23:12 Last Infusion: 07/19/22 23:49 Dose: 0 mls/hr Documented By: Admin: 07/19/22 22:41 Dose: 999 mls/hr Documented By: HAYDER Ceftriaxone Sodium (Rocephin) 2,000 mg in 70 mls @ 140 mls/hr IV NOW STA Stop: 07/19/22 22:50 Last Infusion: 07/19/22 23:15 Dose: 0 mls/hr Documented By: Admin: 07/19/22 22:41 Dose: 140 mls/hr Documented By: HAYDER Ioversol (Optiray 350 100ml) 100 ml IV ONCE ONE Stop: 07/19/22 23:47 Last Admin: 07/19/22 23:46 Dose: 86 ml Documented By: DAYDAY Ondansetron HCl (Ondansetron Inj 2 Mg/Ml 2 Ml Vial) 4 mg IV NOW STA Stop: 07/19/22 22:35 Last Admin: 07/19/22 22:41 Dose: 4 mg Documented By: HAYDER Discharge Plan Visit Data Chief Complaint: Vomiting Stated Complaint: VOMITING, UTI MEDICINE MAKING HIM NAUSEOUS, FEVER ED Provider: Fernie Villalta Discharge Problem: Abdominal pain, Transaminitis, Acute hyponatremia, Alcohol abuse Forms Stand Alone Forms: My [facility] Prescriptions Prescriptions: No Action Centrum Silver 400-250 mcg tablet,chewable 1 tab PO Q OTHER DAY Qty: 0 levothyroxine 50 mcg tablet 50 mcg PO QAM Qty: 90 3RF atorvastatin 20 mg tablet 20 mg PO HS Qty: 90 3RF melatonin 5 mg capsule 10 mg PO HS polyethylene glycol 3350 [Miralax] 17 gram/dose powder 8.5 g PO DAILY PRN (Reason: constipation) Qty: 119 0RF acetaminophen [Tylenol Extra Strength] 500 mg tablet 1,000 mg PO DIRECTED PRN (Reason: PAIN/FEVER) lisinopril 10 mg tablet 10 mg PO DAILY Qty: 30 11RF nitrofurantoin monohyd/m-cryst [Macrobid] 100 mg capsule 100 mg PO BID 7 Days Qty: 14 0RF Rx Instructions: STARTED 07/14/22 FOR 7 DAYS. must administer with a meal/food Referrals Referrals: Adalberto Tierney MD [Primary Care Provider] -
[2022-07-19 23:02] LABS: Basophils # (auto) 0.02 K/uL (0-0.2); Basophils % (auto) 0.3 %; Eosinophils # (auto) 0.07 K/uL (0-0.50); Eosinophils % (auto) 1.1 %; Hematocrit (blood only) 42.8 % (40.1-51.0); Hemoglobin 15.1 g/dl (14.0-18.0); Immature Granulocytes # (auto) 0.02 K/uL (0.00-0.02); Immature Granulocytes % (auto) 0.3 %; Lymphocytes # (auto) 0.38 K/uL (1.2-3.4); Lymphocytes % (auto) 5.9 %; Mean Corpuscular Hemoglobin 31.1 pg (25.0-34.0); Mean Corpuscular Hgb Conc 35.3 g/dL (32.0-36.0); Mean Corpuscular Volume 88.2 fL (80.0-100.0); Mean Platelet Volume 10.1 fL (9.4-12.4); Monocytes # (auto) 0.29 K/uL (0.24-0.82); Monocytes % (auto) 4.5 %; Neutrophils # (auto) 5.68 K/uL (1.4-6.5); Neutrophils % (auto) 87.9 %; Platelet Count 163 K/uL (130-400); RDW Coefficient of Variation 12.9 % (11.5-14.5); RDW Standard Deviation 41.8 fL (36.4-46.3); Red Blood Count 4.85 M/uL (4.63-6.08); White Blood Count 6.46 K/ul (4.8-10.8)
[2022-07-19 23:12] LABS: Appearance Urine Clear (Clear); Bacteria Urine Automated Negative (Negative); Bilirubin Urine Negative (Negative); Blood Urine 3+ (Negative); Color Urine Dark Yellow; Glucose Urine UA Negative (Negative); Ketones Urine Trace (Negative); Leukocyte Esterase Urine Negative (Negative); Nitrite Urine Negative (Negative); Protein Urine 2+ (Negative); Specific Gravity Urine 1.034 (1.000-1.030); Urobilinogen Urine Negative (Negative); pH Urine 5.5 (4.5-7.5)
[2022-07-19 23:28] LABS: Albumin Level 4.3 gm/dl (3.4-5.0); BUN Creatinine Ratio 14.7 (10-20); Bilirubin Direct 0.1 mg/dl (0-0.2); Bilirubin,Total 0.7 mg/dl (0.2-1.0); Calcium 9.4 mg/dl (8.5-10.1); Creatinine Clr Calc Pharmacy 81.7 ml/min; Est GFR (African American) 94.9 ml/min; Est GFR (Non-African American) 81.9 ml/min; Magnesium 1.7 mg/dl (1.7-2.4); Potassium 3.9 mmol/L (3.5-5.1); Total Protein 7.6 gm/dl (6.0-8.3)
[2022-07-19 23:29] LABS: Troponin I High Sensitivity 9.8 pg/ml (0-20)
[2022-07-19] MEDS ORDERED: OPTIRAY 350 100ml IV ONE (23:46)
--- NOTE | 2022-07-20 00:35 | History & Physical Report ---
Date of Service July 20, 2022 Assessment & Plan (1) Transaminitis: Plan: 67-year-old man with history of bowel perforation, hypertension, hyperlipidemia, and hypothyroidism who presents today for fever, chills, and abdominal pain with nausea/vomiting. Now admitted for acute management of acute transaminitis. Transaminitis -Patient has history of alcohol use disorder, though AST, ALT well within normal limits at baseline (in the 20s). -Suspect recent Macrobid prescription for management of presumed UTI. * Macrobid discontinued * Maintenance IVF hydration-LR * Trend transaminases daily Fever/chills/sepsis -Self-reported fever up to 102 F. However, patient has been afebrile since admission. * Blood culture pending Constipation -Patient usually takes fiber at home. Though he is prescribed MiraLAX and milk of magnesia, he rarely takes them as he has regular bowel movements. -Has not had a bowel movement since Wednesday. * MiraLAX 17 g packet scheduled daily until BM back to baseline * Milk of magnesia every 6 hours as needed UTI (consider resolved) -Unclear why patient was ordered UA as he was asymptomatic. -Review of labs, cultures suggest recent positive culture was a false positive, as a subsequent urine culture was negative for growth. -Low suspicion for acute infectious process, given normal WBC -Now s/p p.o. Macrobid x5 days, 2 g IV ceftriaxone x1 in the ED. * Discontinue Macrobid, as above. No further antibiotic treatment at this time. Hypothyroidism * Continue home levothyroxine 50 mcg Hypertension * Continue home lisinopril 10 mg Hyperlipidemia * Continue home atorvastatin 20 mg Insomnia * Home melatonin 10 mg nightly Code: Full code Dispo: Med-Surg FEN/GI: NPO LR DVT Prophylaxis: Lovenox 40 mg q24h PT/OT: Consults: None (2) Abdominal pain: (3) Hypertension: (4) Hyperlipidemia: (5) Hypothyroidism: (6) UTI (urinary tract infection): History of Present Illness Primary Care Provider: Adalberto Tierney MD Amparo is a 67-year-old man who presents to the ED with history of hypertension, hyperlipidemia, and hypothyroidism, who presents to the ED for fever (high as 102 F), chills, abdominal pain with nausea and vomiting x3 days. He was prescribed Macrobid last Wednesday for presumed UTI (asymptomatic). Otherwise, he was in his usual state of health until onset of fever on Wednesday. He describes the abdominal pain is diffuse, without radiation, or alleviating/aggravating factors. In the ED, labs were notable for glucose of 145, and transaminitis (AST-415, ALT-335). Lipase was normal, as were lactate and UA. CXR was negative for acute process. CT abdomen pelvis also negative for acute pathology (per stat read). He received a NS bolus x1 L, IV Zofran, and IV ceftriaxone 2 g x 1 dose. On admission, he corroborates ED HPI. ROS + headache, and constipation (since Wednesday). He has a history of bowel perforation s/p bowel resection, colostomy (@[facility] [place]) that was later reversed. He has no other history of abdominal surgery. Allergies Allergy/AdvReac Type Severity Reaction Status Date / Time Sulfa (Sulfonamide Allergy Severe ANAPHYLAXIS Verified 07/19/22 22:42 Antibiotics) nickel Allergy Intermediate SKIN RASH Verified 07/19/22 22:42 alfuzosin Allergy Unknown Unknown Verified 07/19/22 22:42 Horse/Equine Containing Allergy Unknown UNKNOWN - Verified 07/19/22 22:42 Products HAPPENED A CHILD Penicillins Allergy Unknown UNKNOWN - Verified 07/19/22 22:42 HAPPENED CHILD Home Medications Medication Instructions Recorded Confirmed Type multivit with min-folic 1 tab PO Q OTHER DAY #0 tabs 04/12/19 07/19/22 History acid-lutein 400 mcg-250 mcg chewable tablet (Centrum Silver) melatonin 5 mg capsule 10 mg PO HS 11/19/20 07/19/22 History acetaminophen 500 mg tablet 1,000 mg PO DIRECTED PRN 06/26/21 07/19/22 History (Tylenol Extra Strength) PAIN/FEVER polyethylene glycol 3350 17 8.5 g PO DAILY PRN constipation 11/26/21 07/19/22 Rx gram/dose oral powder (Miralax) #119 grams levothyroxine 50 mcg tablet 50 mcg PO QAM #90 tabs 01/30/22 07/19/22 Rx atorvastatin 20 mg tablet 20 mg PO HS #90 tabs 03/04/22 07/19/22 Rx lisinopril 10 mg tablet 10 mg PO DAILY #30 tabs 07/07/22 07/19/22 Rx nitrofurantoin 100 mg PO BID 7 days #14 caps 07/13/22 07/19/22 Rx monohydrate/macrocrystals 100 mg capsule (Macrobid) Past Med/Surg History Medical History ADD (attention deficit disorder) Alcohol abuse Benign prostatic hyperplasia with urinary obstruction Bipolar 1 disorder BPH (benign prostatic hyperplasia) Erectile dysfunction History of cardiac murmur as a child Hyperlipidemia Hypothyroid Incomplete bladder emptying Kidney stones Osteoarthritis PMR (polymyalgia rheumatica) Prediabetes Pulmonary nodule Sensorineural hearing loss of both ears Suicidal ideation Tinnitus Surgical History History of bowel resection History of carpal tunnel release History of colonoscopy History of lithotripsy History of shoulder surgery History of tooth extraction Family History Father Hypertension Heart disease Mother Hypertension Heart disease Stroke Sister Lung cancer Other No family history of adverse response to anesthesia No family history of bleeding disorder Denies family history of Ovarian cancer Prostate cancer Breast cancer Colorectal cancer Social History Smoking Status: Current every day smoker Tobacco Type: Cigarettes Age Started Using Tobacco: 13; packs per day: 1; Cigarettes Per Day: 10; Second Hand Exposure: No; Do You Dip or Chew Tobacco: No; Tobacco Cessation Education Requested by Patient: No Hx Alcohol Use: Yes Alcohol type: hard liquor Hx Substance Use: Yes Substance Use Type Other:: marijuana use once per day Preferred Language: Pashto Communication Ability: Effective Visual Impairment: No Limitations Hearing Ability: Normal Jewel Blocker And Sawyer Required: No Beliefs That Will Affect Care: None marital status: Single Current Living Situation: Significant Other current occupational status: unemployed How many Children do You have: 0 Other Information That Helps Us Care for You: No Feels Safe at Home: Yes Safety Concerns: Feels Safe At This Time Childhood Exposure to Second-Hand Smoke: No Diet Comment: regular diet caffeine: Yes (1 cup of coffee) during the past year weight has: increased > 10 lbs Dental Care, Regularly: No Physical Activity Frequency: 3-4 Times per Week 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, total gym, l d rn Seatbelt Use: sometimes Sunscreen Use: No Assistive Devices: Denture - Upper, Denture - Lower and Glasses Review of Systems Review of Systems: All systems reviewed & are unremarkable except as noted in HPI & below Physical Exam Physical Exam: General: No acute distress HEENT: PERRLA. Normal conjunctiva, anicteric sclera. Oropharynx normal. Respiratory: Normal respiratory effort, diminished breath sounds bilaterally at the bases. Otherwise CTABL. Cardiovascular: RRR without murmurs, gallops, or rubs. No pedal edema. GI: Soft abdomen with normal bowel sounds heard on auscultation. Diffusely mild/moderately tender to palpation in all quadrants. Neuro: Alert and oriented x3. Results & Data Results & Data ([facility]) Vital Signs (Past 12 Hours) Vital Signs Temp Pulse Pulse Resp BP BP Pulse Ox 07/20/22 00:20 81 103/67 92 07/19/22 22:12 82 18 121/76 91 07/19/22 22:27 83 96 07/19/22 22:02 37.2 C 93 H 20 145/75 H 93 O2 Del Method 07/20/22 00:20 Room Air 07/19/22 22:12 07/19/22 22:27 07/19/22 22:02 Room Air Supervising Physician Co-Signing Physician Notes Attending addendum: I have physically seen this patient, have supervised the medical residents activities, and agree with the H&P unless as otherwise noted. Assessment and Plan: Transaminitis- AST 415, ALT 335 on admission History of significant alcohol use CT scan of abdomen pelvis shows evidence for prior bowel resection. No evidence for obstruction. No acute pathology in the abdomen or pelvis Previous transaminases are in the 20s Follow serially Likely secondary to acute alcohol ingestion, reporting he drinks 1/5 of vodka on average every 2 to 3 days Alcohol dependency/abuse- Place on AWSS protocol with IV Ativan Recent UTI- Treated with Macrobid in the outpatient setting No further treatment is urine looks clear Hypothyroidism- Continue levothyroxine 50 mcg daily Hypertension- Continue lisinopril 10 mg daily Hyperlipidemia- Continue atorvastatin 20 mg daily Check a fasting lipid panel Insomnia- Continue melatonin 10 mg at bedtime as needed Remaining orders and notations as noted Resident Activity Tracking Resident Involvement: Resident Care Provided Care Provided: Adult Hospital Medicine
[2022-07-20] MEDS ORDERED: LACTATED RINGER'S 1,000 ML IV SCH (02:20)
[2022-07-20] MEDS ORDERED: MAGNESIUM HYDROXIDE SUSP 30 ML UDC PO PRN (02:20)
[2022-07-20] MEDS ORDERED: KETOROLAC TROMETHAMINE 15 MG/ML VIAL IV ONE (03:19)
[2022-07-20] MEDS: ONDANSETRON INJ 2 MG/ML 2 ML VIAL IV PRN (03:36)
[2022-07-20] MEDS ORDERED: LORazepam 2 MG/1 ML VIAL IV STA (04:56)
[2022-07-20] MEDS: LEVOTHYROXINE SODIUM 50 MCG TABLET PO SCH (05:19)
--- NOTE | 2022-07-20 06:49 | Billing Data ---
Date of Service July 20, 2022 Coding Level of Care Code 06135 INT INP/OBS CARE
--- NOTE | 2022-07-20 07:26 | CT Scan Report ---
ABDOMEN AND PELVIS CT WITH IV CONTRAST CT DOSE: 390.10 mGy.cm HISTORY: Generalized abd pain n/v/d TECHNIQUE: Multiaxial CT images of the abdomen and pelvis were performed following the use of intrave nous contrast. A dose lowering technique was utilized adhering to the principles of ALARA. COMPARISON STUDY: Abdomen and pelvis CT 03/19/2021. FINDINGS: The lung bases are clear. No pneumoperitoneum. No pneumatosis. No acute fractures identifie d. The liver, gallbladder, spleen, adrenal glands, pancreas, and kidneys are unremarkable. No hydrone phrosis. Mild calcified plaque within the normal caliber abdominal aorta. The main portal vein is pat ent. Mild bladder wall thickening which may be due to underdistention of the enlarged prostate gland. Prior rectosigmoid anastomosis. Suture material within the small bowel within the left side of the a bdomen consistent with additional postoperative changes. No bowel wall thickening or obstruction. Nor mal appendix. Tiny fat-containing supraumbilical hernia. Tiny hernia within the left lower quadrant a bdominal wall at the prior ostomy site. This contains a knuckle small bowel. IMPRESSION: 1. No bowel wall thickening or obstruction. 2. Normal appendix. 3. Postoperative changes as described above. 4. Tiny ventral hernias as described above. 5. Mild bladder wall thickening. This may be due to chronic outlet obstruction from the enlarged pros larson gland. ACT 112: Negative or not required by law. Electronically signed by: Lauri Montano M.D. 07/20/2022 7:23 AM
[2022-07-20] MEDS: CEROVITE ADV FORMULA TAB PO SCH (07:41)
[2022-07-20] MEDS: lisinopril 10 MG TAB PO SCH (07:41)
[2022-07-20] MEDS: POLYETHYLENE (MIRALAX) 17 GM PACK PO SCH (07:42)
[2022-07-20 07:44] LABS: Basophils # (auto) 0.01 K/uL (0-0.2); Basophils % (auto) 0.2 %; Eosinophils # (auto) 0.03 K/uL (0-0.50); Eosinophils % (auto) 0.6 %; Hemoglobin 14.1 g/dl (14.0-18.0); Immature Granulocytes # (auto) 0.01 K/uL (0.00-0.02); Immature Granulocytes % (auto) 0.2 %; Lymphocytes # (auto) 0.49 K/uL (1.2-3.4); Lymphocytes % (auto) 9.5 %; Mean Corpuscular Hemoglobin 30.8 pg (25.0-34.0); Mean Corpuscular Hgb Conc 34.4 g/dL (32.0-36.0); Mean Corpuscular Volume 89.5 fL (80.0-100.0); Mean Platelet Volume 9.7 fL (9.4-12.4); Monocytes # (auto) 0.21 K/uL (0.24-0.82); Monocytes % (auto) 4.1 %; Neutrophils # (auto) 4.39 K/uL (1.4-6.5); Neutrophils % (auto) 85.4 %; Platelet Count 142 K/uL (130-400); RDW Coefficient of Variation 13.1 % (11.5-14.5); Red Blood Count 4.58 M/uL (4.63-6.08); White Blood Count 5.14 K/ul (4.8-10.8)
[2022-07-20 07:46] LABS: Albumin Globulin Ratio 1.3 (0.9-2); Albumin Level 3.8 gm/dl (3.4-5.0); BUN Creatinine Ratio 10.8 (10-20); Bilirubin,Total 0.5 mg/dl (0.2-1.0); Calcium 8.6 mg/dl (8.5-10.1); Creatinine Clr Calc Pharmacy 76.1 ml/min; Est GFR (African American) 87.1 ml/min; Est GFR (Non-African American) 75.2 ml/min; Potassium 4.1 mmol/L (3.5-5.1); Total Protein 6.8 gm/dl (6.0-8.3)
--- NOTE | 2022-07-20 08:23 | XRay Report ---
XR chest 1V portable HISTORY: hypoxia COMPARISON: Chest 07/19/2022. FINDINGS: The lungs are clear. Cardiac silhouette is normal in size. No pleural effusions. No pneumot horax. Mild emphysema. IMPRESSION: 1. Mild emphysema. 2. Otherwise, no acute process within the chest. ACT 112: Negative or not required by law. Electronically signed by: Lauri Montano M.D. 07/20/2022 8:22 AM
--- NOTE | 2022-07-20 08:30 | XRay Report ---
KUB HISTORY: worsening abdominal pain COMPARISON: KUB 12/13/2021. Abdomen and pelvis CT 07/19/2022. FINDINGS: The bowel gas pattern is unremarkable. There are no dilated loops of small bowel to suggest an obstruction. No renal calculi. No ureteral calculi. No pneumoperitoneum or pneumatosis. There is contrast within the urinary system from the recent abdomen and pelvis CT. IMPRESSION: Unremarkable KUB. ACT 112: Negative or not required by law. Electronically signed by: Lauri Montano M.D. 07/20/2022 8:28 AM
--- NOTE | 2022-07-20 09:14 | XRay Report ---
XR chest 1V portable CLINICAL HISTORY: Sepsis TECHNIQUE: Single frontal radiograph of the chest was obtained. Comparison: Comparison is made to chest radiograph 01/19/2021 FINDINGS: No lines and tubes are seen. The cardiomediastinal silhouette is normal. The lungs are clear. No evid ence of pleural effusion or pneumothorax. IMPRESSION: No acute chest disease. ACT 112: Negative or not required by law. Electronically signed by: Mark Anthony Mayen M.D. 07/20/2022 9:13 AM
--- NOTE | 2022-07-20 09:56 | Electrocardiogram Report ---
Test Reason : Blood Pressure : / mmHG Vent. Rate : 089 BPM Atrial Rate : 089 BPM P-R Int : 152 ms QRS Dur : 082 ms QT Int : 346 ms P-R-T Axes : 073 087 058 degrees QTc Int : 420 ms Normal sinus rhythm Normal ECG When compared with ECG of 18-FEB-2018 08:52, Vent. rate has increased BY 35 BPM Confirmed by Adalberto Melissa ([id number]) on 07/20/2022 9:55:47 AM Referred By: REFERRED SELF Confirmed By:Ranjith Melissa
--- NOTE | 2022-07-20 10:47 | Medical Student Progress Note ---
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 Admitted for symptom management and workup and management for acute transaminitis. Transaminitis -History of alcohol use disorder, last drink 07/02 vodka -AST 415 and ALT 335 on admission -Current AST 326 and ALT 376 today -Underlying etiology likely acute alcohol abuse superimposed on chronic alcohol use -Macrobid unlikely due to acute rather than chronic use -Past injection drug use raises concern for viral hepatitis picture, tested negative for HCV on 11/15 * Macrobid discontinued * Viral hepatitis panel ordered * EBV CMV serology ordered * RUQ US to rule out obstructive cause and identify possible fibrosis from chronic alcohol use and past injection drug use * Toxicology screen ordered * If failure for clinical improvement and unremarkable lab tests, consider anaplasmosis testing * Maintenance IVF hydration-LR * Trend transaminases daily (2) Fever and chills: Plan: -Self-reported fever up to 102 F. -Current temperature of 37.7C -Blood culture pending (3) Constipation: Plan: -Patient takes fiber at home. -Prescribed MiraLAX and milk of magnesia, he rarely takes them as he has regular bowel movements. -Has not had a bowel movement since Wednesday. Increased abdominal pressure and belching noted by patient. * MiraLAX 17 g packet scheduled daily until BM back to baseline * Milk of magnesia every 6 hours as needed (4) Abdominal pain: Plan: -Mild tenderness with palpation could be related to acute hepatic inflammation or constipation symptoms -Monitor for worsening in quality and intensity (5) UTI (urinary tract infection): Plan: -Unclear why patient was ordered UA as he was asymptomatic. -Review of labs, cultures suggest recent positive culture was a false positive, as a subsequent urine culture was negative for growth. -Low suspicion for acute infectious process, given normal WBC -Now s/p p.o. Macrobid x5 days, 2 g IV ceftriaxone x1 in the ED. * Discontinue Macrobid, as above. No further antibiotic treatment at this time. (6) Hypothyroidism: Plan: -Continue home levothyroxine 50 mcg (7) Hypertension: Plan: -Continue home lisinopril 10 mg (8) Hyperlipidemia: Plan: -Continue home atorvastatin 20 mg (9) Insomnia: Plan: -Home melatonin 10 mg nightly Plan Code: Full code Dispo: Med-Surg FEN/GI: NPO LR DVT Prophylaxis: Lovenox 40 mg q24h PT/OT: Consults: None Admission and Anticipated Discharge Date Admission Date: July 20, 2022 Supervising Attestation I personally examined the patient and verified all vance points of history and exam, discussed case, and agree with decision making of medical student/biomedical instrument technician Subjective 67 y/o male with history of alcohol abuse, 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 Notably, pt was prescribed Macrobid last Wednesday for presumed UTI although he was asymptomatic. Labs were significant for elevated glucose of 145, AST 415, ALT 335 and normal lipase, lactate, and UA. CXR and CT abdomen were negative. Pt received 1L NS bolus, IV Zofran, and 2g IV Ceftriaxone. Pt admitted to drinking 1/5 of vodka every 2-4 d ays with last 1/5 of vodka consumed on although he admits he may have had a bit more. Pt was placed on AWSS protocol with IV Ativan. Macrobid was discontinued with maintenance LR IVF. Blood cultures are pending. Today, pt still endorses fever and chills. Pt states that the abdominal pain is now a 6/10 compared to the 9/10 yesterday. Has noted increased abdominal pressure and increased belching. Pt has no new symptoms. Overall, pt states he is unaware of the exact cause of his admission. States he believes it is an infection but is frustrated by the lack of a clear answer. Pt admits last he may have had a little more than a fifth of vodka. Pt denies any other current drug use other than tobacco use (0.5 ppd) and marijuana daily. Pt admits to past drug use in the 80s when he would use "anything". When questioned further, pt states he used to inject cocaine but denied any other drug use. Does not currently endorse injection drug use. Review of Systems Constitutional: + fever, + chills and + weakness Respiratory: no dyspnea Cardiovascular: no chest pain Gastrointestinal: Lower abdominal pressure. 6/10 diffuse pain per HPI improved from admission. Increased belching. No bowel movements for at least 2 days. Neurologic: no numbness and no paresthesia Psychiatric: no behavioral changes and no hallucinations Physical Exam Respiratory: does not use accessory muscles Auscultation: lungs clear to auscultation bilaterally Cardiovascular: Rate/Rhythm: regular rate and regular rhythm Heart Sounds: + click; no gallop, no murmur and no cardiac rub Vessels: no carotid bruit Extremities: no pedal edema Gastrointestinal (Abdomen): Mild tenderness to RUQ, RLQ, LLQ. No rebound tenderness. No rigidity. Normal bowel sounds on auscultation. Non-distended. Skin: no jaundice Neurologic: Patellar DTR's 1+ bilaterally. Finger to nose test shows mild intention tremor. Psychiatric: Orientation: alert, oriented to person and oriented to place Oriented to date but did think it was nighttime when I visited him this morning. Results & Data ([facility]) Vital Signs (Past 12 Hours) Vital Signs Temp Pulse Pulse Resp BP Pulse Ox O2 Del Method 07/20/22 09:19 93 Room Air 07/20/22 07:22 37.7 C H 79 16 153/81 H 98 Nasal Cannula 07/20/22 05:04 37.7 C H 81 16 110/66 97 Room Air 07/20/22 04:37 95 Nasal Cannula 07/20/22 04:29 39.1 C H 91 H 17 110/65 91 Room Air 07/20/22 04:26 39.1 C H 07/20/22 04:16 38.7 C H 07/20/22 02:15 Room Air 07/20/22 02:15 Room Air 07/20/22 02:15 38.1 C H 89 18 123/73 93 Room Air 07/20/22 00:20 81 103/67 92 Room Air 07/19/22 22:27 83 96 O2 Flow Rate 07/20/22 09:19 07/20/22 07:22 2 07/20/22 05:04 07/20/22 04:37 2 07/20/22 04:29 07/20/22 04:26 07/20/22 04:16 07/20/22 02:15 07/20/22 02:15 07/20/22 02:15 07/20/22 00:20 07/19/22 22:27
[2022-07-20] MEDS ORDERED: Ativan IV Alcohol Withdrawal--Active Protocol IV PRN (12:26)
[2022-07-20] MEDS ORDERED: LORazepam 2 MG/1 ML VIAL IV PRN ×4 (12:26)
[2022-07-20] MEDS ORDERED: LORazepam 1 MG TAB PO PRN ×2 (12:26)
[2022-07-20] MEDS ORDERED: Ativan PO Alcohol Withdrawal--Active Protocol PO PRN (12:26)
[2022-07-20] MEDS ORDERED: ACETAMINOPHEN 650 MG SUPP PR STA (12:40)
[2022-07-20] MEDS ORDERED: ACETAMINOPHEN 325 MG TAB PO ONE (12:48)
[2022-07-20] MEDS: LORazepam 1 MG TAB PO PRN ×2 (12:50→12:57)
[2022-07-20] MEDS: ENOXAPARIN INJ 40 MG/0.4 ML SYR SQ SCH (12:57)
[2022-07-20] MEDS ORDERED: LORazepam 1 MG TAB PO STA (19:57)
[2022-07-20] MEDS: MELATONIN 3 MG TAB PO SCH (20:06)
[2022-07-21 02:48] LABS: Amphetamines+Metham, Urine Neg (Neg); Barbiturates, Urine Neg (Neg); Benzodiazepine, Urine Neg (Neg); Cocaine, Urine Neg (Neg); MDMA (Ecstacy), Urine Neg (Neg); Methadone, Urine Neg (Neg); Opiate, Urine Pos (Neg); Phencyclidine, Urine Neg (Neg)
[2022-07-21] MEDS: LEVOTHYROXINE SODIUM 50 MCG TABLET PO SCH (06:26)
[2022-07-21] MEDS: ONDANSETRON INJ 2 MG/ML 2 ML VIAL IV PRN ×2 (06:29→17:05)
--- NOTE | 2022-07-21 07:26 | Ultrasound Report ---
US liver HISTORY: 67 years-old Male abdominal pain, fever, transaminitis acute right upper quadrant abdominal pain COMPARISON: CT July 19, 2022 TECHNIQUE: Multiple real-time sonographic images of the abdominal right upper quadrant were obtained assessing grayscale appearance and color flow FINDINGS: Pancreas is mostly obscured by bowel gas. Unremarkable liver measuring up to 17 cm in length. Mild no nspecific gallbladder wall thickening measuring up to 3 mm. No shadowing cholelithiasis or pericholec ystic fluid. Negative sonographic Rosenberg's sign. Normal common bile duct, 4 mm. The imaged right kidney is unremarkable without hydronephrosis. IMPRESSION: 1. Mild nonspecific gallbladder wall thickening. No cholelithiasis or pericholecystic fluid to sugges t acute cholecystitis. 2. No biliary ductal dilation. ACT 112: Negative or not required by law. The above report was generated using voice recognition software. It may contain grammatical, syntax o r spelling errors. Electronically signed by: Nestor Arana M.D. 07/21/2022 7:25 AM
[2022-07-21] MEDS: ENOXAPARIN INJ 40 MG/0.4 ML SYR SQ SCH (07:59)
[2022-07-21] MEDS: lisinopril 10 MG TAB PO SCH (07:59)
[2022-07-21] MEDS: POLYETHYLENE (MIRALAX) 17 GM PACK PO SCH (07:59)
[2022-07-21] MEDS ORDERED: IBUPROFEN 200 MG TAB PO STA (08:01)
[2022-07-21 08:28] LABS: Hematocrit (blood only) 40.6 % (40.1-51.0); Hemoglobin 14.3 g/dl (14.0-18.0); Mean Corpuscular Hemoglobin 31.2 pg (25.0-34.0); Mean Corpuscular Hgb Conc 35.2 g/dL (32.0-36.0); Mean Corpuscular Volume 88.5 fL (80.0-100.0); Mean Platelet Volume 10.2 fL (9.4-12.4); Platelet Count 132 K/uL (130-400); RDW Standard Deviation 42.2 fL (36.4-46.3); Red Blood Count 4.59 M/uL (4.63-6.08); White Blood Count 10.32 K/ul (4.8-10.8)
[2022-07-21 08:31] LABS: INR 1.1 (0.9-1.1); Monotest Negative (Negative); Prothrombin Time 11.4 Seconds (9.0-12.0)
[2022-07-21 08:41] LABS: Basophils # (auto) 0.02 K/uL (0-0.2); Basophils % (auto) 0.2 %; Eosinophils # (auto) 0.03 K/uL (0-0.50); Eosinophils % (auto) 0.3 %; Immature Granulocytes # (auto) 0.04 K/uL (0.00-0.02); Immature Granulocytes % (auto) 0.4 %; Lymphocytes # (auto) 0.71 K/uL (1.2-3.4); Lymphocytes % (auto) 6.9 %; Monocytes # (auto) 0.38 K/uL (0.24-0.82); Monocytes % (auto) 3.7 %; Neutrophils # (auto) 9.14 K/uL (1.4-6.5); Neutrophils % (auto) 88.5 %; Rouleaux 1+; Tear Drop Cells 1+
[2022-07-21 08:52] LABS: Procalcitonin 0.49 ng/ml (0-0.5)
[2022-07-21 08:58] LABS: Lyme Ab IgG w/WB Rflx Negative (Negative); Lyme Ab IgM w/WB Rflx Negative (Negative)
[2022-07-21 08:59] LABS: Albumin Globulin Ratio 1.2 (0.9-2); Albumin Level 3.7 gm/dl (3.4-5.0); BUN Creatinine Ratio 12.9 (10-20); Bilirubin,Total 0.6 mg/dl (0.2-1.0); Calcium 8.6 mg/dl (8.5-10.1); Creatinine Clr Calc Pharmacy 76.8 ml/min; Est GFR (African American) 88.2 ml/min; Est GFR (Non-African American) 76.1 ml/min; Globulin 3.2 gm/dl (2.5-4.0); Potassium 4.1 mmol/L (3.5-5.1); Total Protein 6.9 gm/dl (6.0-8.3)
--- NOTE | 2022-07-21 10:11 | Medical Student Progress Note ---
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 Admitted for symptom management and workup and management for acute transaminitis. Transaminitis -History of alcohol use disorder, last drink 07/02 vodka -AST 415 and ALT 335 on admission -Current AST 113 and ALT 236 today -RUQ US was unremarkable -Differential for underlying etiology: acute alcohol abuse superimposed on chronic alcohol use, viral infection, tick-borne illness -Past injection drug use raises concern for viral hepatitis picture, tested negative for HCV on 11/15 * Viral hepatitis panel ordered * EBV CMV serology ordered * Heterophile negative * Toxicology screen ordered, urine opiates and THC screen positive; pending confirmatory results * Anaplasmosis, Babesia, Lyme negative * Babesia PCR pending * RUQ US negative for acute cholecystitis or biliary ductal dilation. Unremarkable liver measuring up to 17 cm in length * Maintenance IVF hydration-LR * Trend transaminases daily (2) Fever and chills: Plan: -Self-reported fever up to 102 F. -Current temperature of 39.3C -Procalcitonin: 0.49 -Anaplasmosis, Babesia, Lyme negative -Heterophile negative -EBV, CMV, viral hepatitis panel pending -Blood culture pending, preliminary result is negative -U/A ordered: negative for leukocyte esterase and bacteria. Positive for 2+ protein, 2+ ketones, and 2+ blood -Ibuprofen PRN ordered (3) Constipation: Plan: -Patient takes fiber at home. -Prescribed MiraLAX and milk of magnesia, he rarely takes them as he has regular bowel movements. -Has not had a bowel movement since Wednesday. * MiraLAX 17 g packet scheduled daily until BM back to baseline * Milk of magnesia every 6 hours as needed (4) Abdominal pain: Plan: -Mild tenderness with palpation could be related to acute hepatic inflammation or constipation symptoms -Tenderness improved from yesterday -Monitor for worsening in quality and intensity (5) UTI (urinary tract infection): Plan: -U/A ordered -Now s/p p.o. Macrobid x5 days, 2 g IV ceftriaxone x1 in the ED. * Discontinue Macrobid, as above. No further antibiotic treatment at this time. (6) Hypothyroidism: Plan: -Continue home levothyroxine 50 mcg (7) Hypertension: Plan: -Continue home lisinopril 10 mg (8) Hyperlipidemia: Plan: -Continue home atorvastatin 20 mg (9) Insomnia: Plan: -Home melatonin 10 mg nightly Plan Code: Full code Dispo: Med-Surg FEN/GI: NPO LR DVT Prophylaxis: Lovenox 40 mg q24h PT/OT: Consults: None Admission and Anticipated Discharge Date Admission Date: July 20, 2022 Supervising Attestation I saw and examined the patient and discussed case with medical student/medical staff coordinator. 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 Admitted for symptom management and workup and management for acute transaminitis. Today, pt still endorses fluctuating fever and chills. Abdominal pain is now a 5/10 compared to 6/10 yesterday. Pt still has abdominal pressure; hasn't had a bowel movement in 2 days. Pt feels "worn out" with a bitemporal headache, and increasing anxiety. Pt admits to seeing weird things when his eyes open and close but he is able to differentiate these images from reality. Hard to make out exactly what the images are. Upon further questioning about possible infectious etiologies, pt states he is outside constantly. Although he does check for ticks occasionally, he only showers about twice a week. Review of Systems Constitutional: + fever and + chills Respiratory: no dyspnea Cardiovascular: no chest pain Gastrointestinal: 5/10 generalized abdominal pain Genitourinary: no dysuria Neurologic: no numbness and no paresthesia Psychiatric: + visual hallucinations (Per HPI) Physical Exam Respiratory: normal respiratory effort, lungs clear to auscultation Cardiovascular: RRR, no murmur, no edema Gastrointestinal (Abdomen): Inspection/Auscultation: abdomen normal to inspection and normal bowel sounds; abdomen not distended Percussion/Palpation: + abdomen tender (Mild generalized) Neurologic: Patellar DTRs 1+ bilaterally Psychiatric: Orientation: alert, oriented x 3 and cooperative Results & Data ([facility]) Vital Signs (Past 12 Hours) Vital Signs Temp Pulse Resp BP Pulse Ox O2 Del Method O2 Flow Rate 07/21/22 08:15 Nasal Cannula 2 07/21/22 07:44 39.3 C H 96 H 18 137/80 97 Nasal Cannula 2 07/21/22 06:00 37.8 C H 89 17 145/75 H 94 Nasal Cannula 2 07/21/22 02:40 38 C H 90 16 145/83 H 96 Nasal Cannula 2 07/21/22 00:51 39.3 C H 89 17 146/71 H 96 Nasal Cannula 07/20/22 23:14 39.2 C H 87 18 152/77 H 96 Nasal Cannula 2 07/20/22 21:58 39.4 C H 85 21 155/78 H 95 Nasal Cannula 2
[2022-07-21] MEDS: SODIUM CHLORIDE 0.9% 1000ML 1,000 ML IV SCH ×2 (11:46→22:12)
[2022-07-21 11:47] LABS: HBSAG NON-REACTIVE (NON-REACTIVE); Hepatitis A Antibody IgM NON-REACTIVE (NON-REACTIVE); Hepatitis B Core Antibody IgM NON-REACTIVE (NON-REACTIVE)
[2022-07-21 12:10] LABS: C Reactive Protein 23.81 mg/dl (0-0.5)
[2022-07-21 13:19] LABS: Appearance Urine Clear (Clear); Bacteria Urine Automated Negative (Negative); Bilirubin Urine Negative (Negative); Blood Urine 2+ (Negative); Color Urine Yellow; Glucose Urine UA Negative (Negative); Ketones Urine 2+ (Negative); Leukocyte Esterase Urine Negative (Negative); Nitrite Urine Negative (Negative); Protein Urine 2+ (Negative); Specific Gravity Urine 1.016 (1.000-1.030); Urobilinogen Urine Negative (Negative); pH Urine 5.5 (4.5-7.5)
[2022-07-21] MEDS ORDERED: IBUPROFEN 200 MG TAB PO PRN (14:00)
[2022-07-21] MEDS ORDERED: LACTATED RINGER'S 500 ML IV ONE (16:49)
[2022-07-21] MEDS ORDERED: SODIUM CHLORIDE 0.9% 1000ML 500 ML IV ONE (16:50)
[2022-07-21] MEDS ORDERED: ACETAMINOPHEN 500 MG TAB PO PRN (16:52)
[2022-07-21] MEDS ORDERED: ACETAMINOPHEN 500 MG TAB PO STA (16:52)
[2022-07-21] MEDS ORDERED: IBUPROFEN 600 MG TAB PO SCH (17:00)
[2022-07-21] MEDS: ALUMINUM/MAGNESIUM SUSP 30 ML UDC PO SCH ×2 (17:06→23:02)
[2022-07-21] MEDS: MAGNESIUM SULFATE / D5W 1 GM/100 ML BAG IV SCH ×2 (17:33→19:17)
[2022-07-21] MEDS: FAMOTIDINE 20 MG in SYRINGE 3 ML IV SCH (17:50)
[2022-07-21] MEDS: MELATONIN 3 MG TAB PO SCH (20:35)
[2022-07-21] MEDS: PANTOprazole 40 MG in SYRINGE 0 ML IV SCH (20:35)
[2022-07-22] MEDS: ACETAMINOPHEN 325 MG TAB PO PRN ×2 (00:21→08:38)
[2022-07-22] MEDS: LEVOTHYROXINE SODIUM 50 MCG TABLET PO SCH (05:33)
[2022-07-22] MEDS: ALUMINUM/MAGNESIUM SUSP 30 ML UDC PO SCH ×4 (05:33→23:02)
[2022-07-22] MEDS: SODIUM CHLORIDE 0.9% 1000ML 1,000 ML IV SCH ×3 (05:35→20:50)
[2022-07-22] MEDS: FAMOTIDINE 20 MG in SYRINGE 3 ML IV SCH (08:37)
[2022-07-22] MEDS: POLYETHYLENE (MIRALAX) 17 GM PACK PO SCH (08:37)
[2022-07-22] MEDS: PANTOprazole 40 MG in SYRINGE 0 ML IV SCH (08:37)
[2022-07-22] MEDS: ENOXAPARIN INJ 40 MG/0.4 ML SYR SQ SCH (08:37)
[2022-07-22] MEDS: CEROVITE ADV FORMULA TAB PO SCH (08:38)
[2022-07-22] MEDS: FOLIC ACID 1 MG TAB PO SCH (08:38)
[2022-07-22] MEDS: lisinopril 10 MG TAB PO SCH (08:38)
[2022-07-22] MEDS: THIAMINE HCL 100 MG TAB PO SCH (08:38)
[2022-07-22 12:06] LABS: Hematocrit (blood only) 38.7 % (40.1-51.0); Hemoglobin 13.3 g/dl (14.0-18.0); Mean Corpuscular Hemoglobin 30.6 pg (25.0-34.0); Mean Corpuscular Hgb Conc 34.4 g/dL (32.0-36.0); Platelet Count 140 K/uL (130-400); RDW Coefficient of Variation 13.2 % (11.5-14.5); RDW Standard Deviation 42.8 fL (36.4-46.3); Red Blood Count 4.35 M/uL (4.63-6.08); White Blood Count 6.43 K/ul (4.8-10.8)
[2022-07-22 12:14] LABS: Albumin Globulin Ratio 1.2 (0.9-2); Albumin Level 3.6 gm/dl (3.4-5.0); BUN Creatinine Ratio 13.5 (10-20); Bilirubin,Total 0.5 mg/dl (0.2-1.0); C Reactive Protein 26.09 mg/dl (0-0.5); Calcium 8.3 mg/dl (8.5-10.1); Creatinine Clr Calc Pharmacy 80.8 ml/min; Est GFR (African American) 93.8 ml/min; Est GFR (Non-African American) 80.9 ml/min; Globulin 3.1 gm/dl (2.5-4.0); Potassium 3.9 mmol/L (3.5-5.1); Total Protein 6.7 gm/dl (6.0-8.3)
[2022-07-22 12:18] LABS: Basophils # (auto) 0.02 K/uL (0-0.2); Basophils % (auto) 0.3 %; Eosinophils # (auto) 0.12 K/uL (0-0.50); Eosinophils % (auto) 1.9 %; Immature Granulocytes # (auto) 0.02 K/uL (0.00-0.02); Immature Granulocytes % (auto) 0.3 %; Lymphocytes # (auto) 1.15 K/uL (1.2-3.4); Lymphocytes % (auto) 17.9 %; Monocytes # (auto) 0.42 K/uL (0.24-0.82); Monocytes % (auto) 6.5 %; Neutrophils % (auto) 73.1 %
--- NOTE | 2022-07-22 12:39 | Hospitalist Progress Note ---
Date of Service July 22, 2022 Assessment & Plan (1) Transaminitis: Plan: 67-year-old man with history of bowel perforation, hypertension, hyperlipidemia, and hypothyroidism who presents today for fever, chills, and abdominal pain with nausea/vomiting. Now admitted for acute management of acute transaminitis. Fever/chills/sepsis -Self-reported fever up to 102 F and noted to be febrile during stay. * Blood cultures NGTD, unremarkable UA * PCT negative but CRP 24 * Other workup negative- anaplasmosis, babesiosis, Lyme, monospot. EBV still pending. * Improving, no fevers overnight * I do suspect his symptoms were likely due to viral URI at this point * Mucinex BID for sinus congestion ordered Transaminitis -Patient has history of alcohol use disorder, though AST, ALT well within normal limits at baseline (in the 20s). -Suspect recent Macrobid prescription for management of presumed UTI. * Macrobid discontinued on admission * Maintenance IVF hydration-NSS * Trend transaminases daily- they are improving Hyponatremia -Hyponatremic on admission, Na 130 on 07/21 -Euvolemic on exam, I do suspect his hyponatremia mostly due to poor oral intake -Continue NSS repletion (switched from LR) -Trend BMP Constipation -Patient usually takes fiber at home. Though he is prescribed MiraLAX and milk of magnesia, he rarely takes them as he has regular bowel movements. -Bowel movement today * MiraLAX 17 g packet scheduled daily * Milk of magnesia every 6 hours as needed UTI (consider resolved) -Unclear why patient was ordered UA as he was asymptomatic. -Review of labs, cultures suggest recent positive culture was a false positive, as a subsequent urine culture was negative for growth. -Low suspicion for acute infectious process, given normal WBC -Now s/p p.o. Macrobid x5 days, 2 g IV ceftriaxone x1 in the ED. * Discontinued Macrobid, as above. No further antibiotic treatment at this time. Hypothyroidism * Continue home levothyroxine 50 mcg Hypertension * Continue home lisinopril 10 mg Hyperlipidemia * Continue home atorvastatin 20 mg Insomnia * Home melatonin 10 mg nightly Code: Full code Dispo: Medical/surgical FEN/GI: Regular diet DVT Prophylaxis: Lovenox 40 mg q24h Consults: None (2) Abdominal pain: (3) Hypertension: (4) Hyperlipidemia: (5) Hypothyroidism: (6) UTI (urinary tract infection): Admission and Anticipated Discharge Date Admission Date: July 20, 2022 Supervising Physician Co-Signing Physician Notes I have seen and examined patient. I agree with the Assessment and Plan as documented by medical record transcriber Subjective No acute events overnight. Pt does feel significantly better today. No fevers overnight but did have few chills. His abdominal pain and nausea has decreased. He does have a mild frontal headache and sinus congestion. Review of Systems Review of Systems: Per HPI Physical Exam Physical Exam: General: No acute distress HEENT: PERRLA. Normal conjunctiva, anicteric sclera. Oropharynx normal. Respiratory: Normal respiratory effort, diminished breath sounds bilaterally at the bases. Otherwise CTABL. Cardiovascular: RRR without murmurs, gallops, or rubs. No pedal edema. GI: Soft abdomen with normal bowel sounds heard on auscultation. Mildly tender to RUQ and RLQ, much less than prior exams Neuro: Alert and oriented x3. Results & Data Results & Data ([facility]) Vital Signs (Past 12 Hours) Vital Signs Temp Pulse Resp BP Pulse Ox O2 Del Method 07/22/22 07:48 37.3 C 90 16 126/74 91 Room Air 07/22/22 04:43 37.0 C 81 18 121/73 94 Room Air 07/22/22 00:18 37.0 C 86 18 149/78 H 94 Room Air Resident Activity Tracking Resident Involvement: Resident Care Provided Care Provided: Adult Hospital Medicine
[2022-07-22 16:08] LABS: EBV Nuclear Ag Antibody >600.00 U/mL; EBV Virus Capsid Ag IgG Ab >750.00 U/mL; Epstein Barr Virus Early Ag Ab >150.00 U/mL
[2022-07-22] MEDS: guaiFENesin 600 MG TABCR PO SCH (20:46)
[2022-07-22] MEDS: FAMOTIDINE 20 MG TAB PO SCH (20:46)
[2022-07-22] MEDS: MELATONIN 3 MG TAB PO SCH (20:46)
[2022-07-23] MEDS: SODIUM CHLORIDE 0.9% 1000ML 1,000 ML IV SCH (04:52)
[2022-07-23] MEDS: ALUMINUM/MAGNESIUM SUSP 30 ML UDC PO SCH ×2 (05:01→12:37)
[2022-07-23] MEDS: LEVOTHYROXINE SODIUM 50 MCG TABLET PO SCH (05:01)
[2022-07-23 07:44] LABS: Albumin Globulin Ratio 1.1 (0.9-2); Albumin Level 3.2 gm/dl (3.4-5.0); BUN Creatinine Ratio 15.4 (10-20); Bilirubin,Total 0.4 mg/dl (0.2-1.0); Calcium 8.2 mg/dl (8.5-10.1); Creatinine Clr Calc Pharmacy 99.5 ml/min; Est GFR (African American) 107.5 ml/min; Est GFR (Non-African American) 92.8 ml/min; Globulin 2.9 gm/dl (2.5-4.0); Potassium 3.9 mmol/L (3.5-5.1); Total Protein 6.1 gm/dl (6.0-8.3)
[2022-07-23] MEDS ORDERED: PANTOprazole 40 MG TAB PO SCH (09:00)
[2022-07-23] MEDS: FOLIC ACID 1 MG TAB PO SCH (09:25)
[2022-07-23] MEDS: guaiFENesin 600 MG TABCR PO SCH (09:25)
[2022-07-23] MEDS: FAMOTIDINE 20 MG TAB PO SCH (09:25)
[2022-07-23] MEDS: POLYETHYLENE (MIRALAX) 17 GM PACK PO SCH (09:26)
[2022-07-23] MEDS: ENOXAPARIN INJ 40 MG/0.4 ML SYR SQ SCH (09:26)
[2022-07-23] MEDS: THIAMINE HCL 100 MG TAB PO SCH (09:26)
[2022-07-23] MEDS: lisinopril 10 MG TAB PO SCH (09:26)
[2022-07-23 09:28] LABS: Basophils # (auto) 0.02 K/uL (0-0.2); Basophils % (auto) 0.4 %; Eosinophils # (auto) 0.22 K/uL (0-0.50); Eosinophils % (auto) 4.7 %; Hematocrit (blood only) 36.2 % (42.0-52.0); Hemoglobin 12.6 g/dl (14.0-18.0); Immature Granulocytes # (auto) 0.01 K/uL (0.01-0.20); Immature Granulocytes % (auto) 0.2 %; Lymphocytes # (auto) 0.98 K/uL (1.2-3.4); Lymphocytes % (auto) 20.9 %; Mean Corpuscular Hemoglobin 30.5 pg (25.0-34.0); Mean Corpuscular Hgb Conc 34.8 g/dL (32.0-36.0); Mean Corpuscular Volume 87.7 fL (80.0-100.0); Mean Platelet Volume 10.7 fL (9.4-12.4); Monocytes # (auto) 0.38 K/uL (0.11-0.59); Monocytes % (auto) 8.1 %; Neutrophils # (auto) 3.08 K/uL (1.40-6.50); Neutrophils % (auto) 65.7 %; Platelet Count 146 K/uL (130-400); RDW Coefficient of Variation 13.2 % (11.5-14.5); RDW Standard Deviation 42.5 fL (36.4-46.3); Red Blood Count 4.13 M/uL (4.70-6.10); White Blood Count 4.69 K/ul (4.8-10.8)
--- NOTE | 2022-07-23 10:27 | Discharge Summary ---
Date of Service July 23, 2022 Admission HPI Per Admitting Provider Amparo is a 67-year-old man who presents to the ED with history of hypertension, hyperlipidemia, and hypothyroidism, who presents to the ED for fever (high as 102 F), chills, abdominal pain with nausea and vomiting x3 days. He was prescribed Macrobid last Wednesday for presumed UTI (asymptomatic). Otherwise, he was in his usual state of health until onset of fever on Wednesday. He describes the abdominal pain is diffuse, without radiation, or alleviating/aggravating factors. In the ED, labs were notable for glucose of 145, and transaminitis (AST-415, ALT-335). Lipase was normal, as were lactate and UA. CXR was negative for acute process. CT abdomen pelvis also negative for acute pathology (per stat read). He received a NS bolus x1 L, IV Zofran, and IV ceftriaxone 2 g x 1 dose. On admission, he corroborates ED HPI. ROS + headache, and constipation (since Wednesday). He has a history of bowel perforation s/p bowel resection, colostomy (@[facility]) that was later reversed. He has no other history of abdominal surgery. Admission Exam Per Admitting Provider General: No acute distress HEENT: PERRLA. Normal conjunctiva, anicteric sclera. Oropharynx normal. Respiratory: Normal respiratory effort, diminished breath sounds bilaterally at the bases. Otherwise CTABL. Cardiovascular: RRR without murmurs, gallops, or rubs. No pedal edema. GI: Soft abdomen with normal bowel sounds heard on auscultation. Diffusely mild/moderately tender to palpation in all quadrants. Neuro: Alert and oriented x3. Principal Diagnosis Viral URI Discharge Exam General: No acute distress HEENT: PERRLA. Normal conjunctiva, anicteric sclera. Oropharynx normal. Respiratory: Normal respiratory effort, diminished breath sounds bilaterally at the bases. Otherwise CTABL. Cardiovascular: RRR without murmurs, gallops, or rubs. No pedal edema. GI: Soft abdomen with normal bowel sounds heard on auscultation. Nontender. Neuro: Alert and oriented x3. Discharge Data Allergies Allergy/AdvReac Type Severity Reaction Status Date / Time Sulfa (Sulfonamide Allergy Severe ANAPHYLAXIS Verified 07/19/22 22:42 Antibiotics) nickel Allergy Intermediate SKIN RASH Verified 07/19/22 22:42 alfuzosin Allergy Unknown Unknown Verified 07/19/22 22:42 Horse/Equine Containing Allergy Unknown UNKNOWN - Verified 07/19/22 22:42 Products HAPPENED A CHILD Penicillins Allergy Unknown UNKNOWN - Verified 07/19/22 22:42 HAPPENED CHILD Consultations 07/20/22 00:11 ED Decision to Admit Stat Ordered Studies 07/19/22 22:21 CT Abd and Pelvis [CT abd pelvis IV con only] Urgent 07/21/22 US liver Routine Hospital Course (1) Transaminitis: 67-year-old man with history of bowel perforation, hypertension, hyperlipidemia, and hypothyroidism who presents today for fever, chills, and abdominal pain with nausea/vomiting. Now admitted for acute management of acute transaminitis. Fever/chills/sepsis -Self-reported fever up to 102 F and noted to be febrile during stay. * Blood cultures NGTD, unremarkable UA * PCT negative but CRP 24 * Other workup negative- anaplasmosis, babesiosis, Lyme, monospot. EBV with evidence of past but not present infection * Improving, no fevers overnight. Recovered and stable for d/c today * I do suspect his symptoms were likely due to viral URI at this point Transaminitis -Patient has history of alcohol use disorder, though AST, ALT well within normal limits at baseline (in the 20s). -Suspect recent Macrobid prescription for management of presumed UTI. * Macrobid discontinued on admission * Maintenance IVF hydration-NSS * Trend transaminases daily- they improved and normalized by time of discharge Hyponatremia -Hyponatremic on admission, Na 130 on 07/21 -Euvolemic on exam, I do suspect his hyponatremia mostly due to poor oral intake -Given NSS repletion (switched from LR) -Normal at time of discharge Constipation -Patient usually takes fiber at home. Though he is prescribed MiraLAX and milk of magnesia, he rarely takes them as he has regular bowel movements. -Bowel movements normal by time of discharge * MiraLAX 17 g packet scheduled daily * Milk of magnesia every 6 hours as needed UTI (consider resolved) -Unclear why patient was ordered UA as he was asymptomatic. -Review of labs, cultures suggest recent positive culture was a false positive, as a subsequent urine culture was negative for growth. -Low suspicion for acute infectious process, given normal WBC -Now s/p p.o. Macrobid x5 days, 2 g IV ceftriaxone x1 in the ED. * Discontinued Macrobid, as above. No further antibiotic treatment at this time. Hypothyroidism * Continue home levothyroxine 50 mcg Hypertension * Continue home lisinopril 10 mg Hyperlipidemia * Continue home atorvastatin 20 mg Insomnia * Home melatonin 10 mg nightly Code: Full code Dispo: Medical/surgical FEN/GI: Regular diet DVT Prophylaxis: Lovenox 40 mg q24h Consults: None (2) Abdominal pain: (3) Hypertension: (4) Hyperlipidemia: (5) Hypothyroidism: (6) UTI (urinary tract infection): Total Time Total Time Spent Total Time Spent (In Minutes): 30 Discharge Plan Discharge Items Patient Disposition: Home - Self-Care Reason For Visit: FEVER AND VOMITING Discharge Diagnosis: Viral URI Activity: Resume your previous activity Non-emergency contact: Primary Care Provider Call non-emergency contact if: your symptoms worsen and you have a fever Follow-up/Referrals: Adalberto Tierney MD [Primary Care Provider] - 07/31/22 11:00 am (APPOINTMENT WITH KADI MILLER) Diet: Regular Addtl Attending Provider Instructions: You were admitted to the hospital for a viral URI which led to significant weakness and diffuse symptoms. We ruled out several other causes of your symptoms including hepatitis, mononucleosis and tick borne diseases. Your symptoms improved with supportive care, mainly just fluids. You might still cough for a few weeks, so please stay hydrated. We recommend hot liquids and honey to help relieve the cough a bit. A discharge summary will be sent to your primary care physician to ensure continuity of care. Please bring this discharge summary with you to your next office appointment so that your provider can review it at that time. Follow-up appointments: Make a follow-up appointment with your PCP within the next week. It is very important that you follow up with them shortly after discharge from the hospital. Medications: Your medication list has been reviewed and reconciled upon discharge to ensure accuracy and continuity of care. An updated list of all your medications is included with your hospital discharge paperwork. Please review this list closely, and make note of any changes. We sent a new medication called Tessalon to the pharmacy. This is a cough medication to use as needed. Please take no more than 3 per day (8 hours apart between each lisa) Take your medications as instructed; do not skip a dose of your medicines. Make sure all of your doctors know every medicine you are taking (including kvud-hle-gyilmsk medicines, vitamins, and supplements). Call your primary care provider before taking any new medicines (including zgiz-pzw-ztoxgsy medicines, vitamins, and supplements), because some of these may interact with your current medications, or may make your symptoms worse. Tell your primary care provider if you cannot afford your medications. CONTACT YOUR PRIMARY CARE PROVIDER if you experience any of the following: Fever Abdominal pain Nausea/vomiting Severe cough Difficulty following your treatment plan, or difficulty taking medications CALL 911 OR GO TO THE EMERGENCY DEPARTMENT if you experience any of the following: Sudden, severe abdominal pain or nausea/vomiting Severe chest pain, or chest pain that radiates (moves) to your jaw or arm Sudden, severe shortness of breath or difficulty breathing Thank you for allowing us to participate in your care. Pending Studies at Discharge: No Stand-Alone Forms: My [facility] Visualase, Smoking Cessation Medications and DC Order Prescriptions: New benzonatate 100 mg capsule 100 mg PO TID PRN (Reason: cough) Qty: 14 0RF Continued Centrum Silver 400-250 mcg tablet,chewable 1 tab PO Q OTHER DAY Qty: 0 levothyroxine 50 mcg tablet 50 mcg PO QAM Qty: 90 3RF atorvastatin 20 mg tablet 20 mg PO HS Qty: 90 3RF melatonin 5 mg capsule 10 mg PO HS polyethylene glycol 3350 [Miralax] 17 gram/dose powder 8.5 g PO DAILY PRN (Reason: constipation) Qty: 119 0RF acetaminophen [Tylenol Extra Strength] 500 mg tablet 1,000 mg PO DIRECTED PRN (Reason: PAIN/FEVER) lisinopril 10 mg tablet 10 mg PO DAILY Qty: 30 11RF Discontinued nitrofurantoin monohyd/m-cryst [Macrobid] 100 mg capsule 100 mg PO BID 7 Days Qty: 14 0RF Rx Instructions: STARTED 07/14/22 FOR 7 DAYS. must administer with a meal/food Discharge Orders: Discharge Order (Routine); Ordered 07/23/22 Ordered By: Jeison Garrett Admission Data Admit Date/Time: 07/20/22 01:03 Attending Provider: Carloz Odonnell Admit Provider: Becky Dai Primary Care Provider: Adalberto Tierney Other Interventions: Discharge Summary Assessment (RN) Last Done: 07/23/22 11:38 Supervising Physician Co-Signing Physician Notes I have seen and examined patient. I agree with the Discharge Summary as documented by medical record coder Resident Activity Tracking Resident Involvement: Resident Care Provided Care Provided: Adult Hospital Medicine
[2022-07-24 23:36] LABS: Babesia microti DNA Not Detected (Not Detected)
== END 2022-07-23 13:13 | disposition home or self-care (01) ==
LOC: ED 21:58 → 3N 07-20 01:03 → SUATTDRO 07-20 01:03 → INTOOBSV 07-20 01:03 → 3N 07-20 01:48
DX: Z88.0 Allergy status to penicillin; K59.00 Constipation, unspecified; F10.10 Alcohol abuse, uncomplicated; E78.5 Hyperlipidemia, unspecified; I10 Essential (primary) hypertension; R11.2 Nausea with vomiting, unspecified; E03.9 Hypothyroidism, unspecified; Z88.8 Allergy status to other drugs, medicaments and biological substances; R50.9 Fever, unspecified; Z79.899 Other long term (current) drug therapy; Z88.2 Allergy status to sulfonamides; R74.01 Elevation of levels of liver transaminase levels; N39.0 Urinary tract infection, site not specified; E87.1 Hypo-osmolality and hyponatremia; F17.210 Nicotine dependence, cigarettes, uncomplicated